=== PATIENT | female | born 1955 | race Caucasian/White ===

== ENCOUNTER 2016-03-27 20:33 | Inpatient (IN) | payer MEDICARE, MEDICAID ==
[2016-03-27] MEDS ORDERED: NORMAL SALINE 1000 ML 1,000 ML IV PRN (20:52)
--- NOTE | 2016-03-27 20:58 | ER Document Report ---
ED General - General Chief Complaint: Altered Mental Status Stated Complaint: TROUBLE BREATHING Time seen by provider: 20:52 Mode of Arrival: Medic Information source: Patient, Emergency Med Personnel TRAVEL OUTSIDE OF THE [place] IN LAST 30 DAYS: No - HPI Patient complains to provider of: altered mental status, cough, not eating or drinking today Onset: Other - 2-3 days Onset/Duration: Persistent, Worse Quality of pain: No pain Associated symptoms: Body/muscle aches, Nonproductive cough, Shortness of breath , Weakness Exacerbated by: Denies Relieved by: Denies Recently seen / treated by doctor: No Notes: Patient is a 60-year-old female brought to emergency room by EMS for altered mental status, apparently her roommate called EMS is patient hasn't been eating or drinking throughout the day today, she is weak and pale, becoming progressively less responsive, patient is a poor historian and unable to provide much detail about her current condition, she does admit to being a smoker, has had a nonproductive cough, denies any pain, no nausea, vomiting or diarrhea, she does complain of a dry mouth and admits that she has not eaten or drinking at all today - Related Data Allergies/Adverse Reactions: Penicillins Allergy (Mild, Verified 03/20/14 21:10) Home Medications: Current Home Medications Hydroxyzine HCl [Hydroxyzine HCl] 25 mg PO QID 03/28/16 [History] Past Medical History - General Information source: Patient, Emergency Med Personnel - Social History Smoking Status: Current Every Day Smoker Family History: Reviewed & Not Pertinent - Past Medical History Cardiac Medical History: Reports: Hx Congestive Heart Failure, Hx Coronary Artery Disease, Hx Hypercholesterolemia Pulmonary Medical History: Reports: Hx Bronchitis, Hx COPD Neurological Medical History: Reports: Hx Migraine GI Medical History: Reports: Hx Gastroesophageal Reflux Disease Musculoskeltal Medical History: Reports Hx Arthritis Psychiatric Medical History: Reports: Hx Anxiety, Hx Depression Past Surgical History: Reports: Hx Adenoidectomy, Hx Cholecystectomy, Hx Orthopedic Surgery - left total hip, Hx Tonsillectomy - Immunizations Hx Diphtheria, Pertussis, Tetanus Vaccination: Yes Review of Systems - Review of Systems Constitutional: See HPI EENT: No symptoms reported Cardiovascular: No symptoms reported Respiratory: See HPI Gastrointestinal: Poor appetite, Poor fluid intake Genitourinary: No symptoms reported Female Genitourinary: No symptoms reported Musculoskeletal: No symptoms reported Skin: No symptoms reported Hematologic/Lymphatic: No symptoms reported Neurological/Psychological: Confusion -: Yes All other systems reviewed and negative Physical Exam - Vital signs Vitals: Pulse Ox 100 03/27/16 20:40 - General General appearance: Alert, Lethargic In distress: Moderate - HEENT Head: Normocephalic, Atraumatic Eyes: Normal Conjunctiva: Normal Extraocular movements intact: Yes Eyelashes: Normal Pupils: PERRL Mucous membranes: Dry Pharynx: Normal Neck: Normal - Respiratory Respiratory status: Depressed respirations Chest status: Nontender Breath sounds: Decreased air movement, Nonproductive cough, Wheezing Chest palpation: Normal - Cardiovascular Rhythm: Regular Heart sounds: Normal auscultation Murmur: No - Abdominal Inspection: Normal Distension: No distension Bowel sounds: Normal Tenderness: Nontender Organomegaly: No organomegaly - Back Back: Normal, Nontender - Extremities General upper extremity: Normal inspection, Nontender, Normal color, Normal ROM , Normal temperature General lower extremity: Normal inspection, Nontender, Normal color, Normal ROM , Normal temperature. No: Abiodun's sign - Neurological Cognition: Normal, Confused Orientation: Disoriented to events Alfredo Coma Scale Eye Opening: Spontaneous Alfredo Coma Scale Verbal: Confused [place] Coma Scale Motor: Obeys Commands Alfredo Coma Scale Total: 14 Speech: Normal Motor strength normal: LUE, RUE, LLE, RLE Sensory: Normal - Psychological Associated symptoms: Normal affect, Normal mood - Skin Skin Temperature: Warm Skin Moisture: Dry Skin Color: Pale Course - Re-evaluation Re-evalutation: 03/28/16 00:05 Patient was discussed with hospitalist who agrees to admit for further evaluation and treatment, request that patient be placed on BiPAP and be given antibiotics aztreonam and azithromycin and admitted to the IMCU - Vital Signs Vital signs: Temp Pulse Resp BP Pulse Ox 20 106/53 L 92 03/28/16 02:01 03/28/16 02:01 03/28/16 02:01 - Laboratory Result Diagrams: 03/27/16 21:05 03/27/16 21:05 Laboratory results interpreted by me: 03/27/16 03/27/16 03/27/16 21:05 21:05 21:05 Hgb 7.6 L Hct 26.5 L MCV 68 L MCH 19.5 L MCHC 28.7 L RDW 23.7 H VBG pH 7.26 L VBG pCO2 67.1 H* Sodium 148.9 H Potassium 3.5 L Carbon Dioxide 32 H Creatinine 0.39 L Glucose 59 L Lactic Acid Total Protein 6.0 L Albumin 3.4 L Urine Ketones 03/27/16 03/27/16 21:05 22:09 Hgb Hct MCV MCH MCHC RDW VBG pH VBG pCO2 Sodium Potassium Carbon Dioxide Creatinine Glucose Lactic Acid < 0.5 L Total Protein Albumin Urine Ketones 20 H - Diagnostic Test Radiology reviewed: Image reviewed, Reports reviewed - EKG Interpretation by Me EKG shows normal: Sinus rhythm Rate: Normal Rhythm: NSR Voltage: Consistant with LVH Heart block present: 1st Degree When compared to previous EKG there are: No significant change - Transfer of Care Care transferred to following provider: Dr. Pan Critical Care Note - Critical Care Note Total time excluding time spent on procedures (mins): 30 Comments: Patient with acute on chronic COPD exacerbation, acute encephalopathy, requiring BiPAP placement and IMCU admission Discharge - Discharge Clinical Impression: Acute encephalopathy, Obstructive chronic bronchitis with exacerbation Acute and chronic respiratory failure ([id number]) Qualifiers: Respiratory failure complication: hypercapnia Qualified Code(s): J96.22 - Acute and chronic respiratory failure with hypercapnia Condition: Serious Disposition: ADMITTED INPATIENT Admitting Provider: Hospitalist Unit Admitted: [facility]
[2016-03-27 21:33] LABS: VENOUS BLOOD BASE EXCESS 1.9 mmol/L; VENOUS BLOOD HCO3 29.7 mmol/L (20-32); VENOUS BLOOD PH 7.26 (7.30-7.42)
[2016-03-27] MEDS ORDERED: IPRATROPIUM/ALBUTEROL 0.5-2.5 MG/3 ML AMPUL NEB ONE (21:41)
[2016-03-27 21:42] LABS: ABSOLUTE BASOPHILS # (AUTO) 0.1 10^3/uL (0.0-0.2); ABSOLUTE EOSINOPHILS # (AUTO) 0.1 10^3/uL (0.0-0.6); ABSOLUTE LYMPHOCYTES (AUTO) 1.3 10^3/uL (0.5-4.7); ABSOLUTE MONOCYTES (AUTO) 0.5 10^3/uL (0.1-1.4); ABSOLUTE NEUT (AUTO) 3.2 10^3/uL (1.7-8.2); HEMATOCRIT 26.5 % (36.0-47.0); HGB HCT DIFFERENCE -3.7; LYMPHOCYTES % (AUTO) 25.3 % (13-45); MEAN CORPUSCULAR HEMOGLOBIN 19.5 pg (27.0-33.4); MEAN CORPUSCULAR HGB CONC 28.7 g/dL (32.0-36.0); MEAN CORPUSCULAR VOLUME 68 fl (80-97); MONOCYTES % (AUTO) 9.5 % (3-13); RED BLOOD COUNT 3.91 10^6/uL (3.72-5.28); RED CELL DISTRIBUTION WIDTH 23.7 % (11.5-14.0); SEGMENTED NEUTROPHILS % (AUTO) 63.2 % (42-78)
[2016-03-27 21:48] LABS: HEMOGLOBIN 7.6 g/dL (12.0-15.5); VENOUS BLOOD PCO2 67.1 mmHg (35-63)
[2016-03-27 21:54] LABS: ALANINE AMINOTRANSFERASE 13 U/L (9-52); ALBUMIN 3.4 g/dL (3.5-5.0); ALKALINE PHOSPHATASE 58 U/L (38-126); ANION GAP 11 (5-19); ASPARTATE AMINO TRANSFERASE 17 U/L (14-36); BILIRUBIN,TOTAL 0.3 mg/dL (0.2-1.3); BLOOD UREA NITROGEN 16 mg/dL (7-20); CARBON DIOXIDE 32 mmol/L (22-30); CHLORIDE 106 mmol/L (98-107); CREATINE KINASE 53 U/L (30-135); CREATININE RESULT 0.39 mg/dL (0.52-1.25); GLUCOSE 59 mg/dL (75-110); LIPASE 32.1 U/L (23-300); POTASSIUM 3.5 mmol/L (3.6-5.0); SODIUM 148.9 mmol/L (137-145)
[2016-03-27 21:58] LABS: ALCOHOL < 10 mg/dL (NONE DETECTED)
[2016-03-27 22:05] LABS: CREATINE KINASE MB 0.95 ng/mL (<4.55)
[2016-03-27 22:06] LABS: TROPONIN I < 0.012 ng/mL
[2016-03-27 22:19] LABS: PARTIAL THROMBOPLASTIN TIME 35.1 SEC (23.5-35.8); PROTHROMBIN TIME 15.4 SEC (11.4-15.4)
[2016-03-27 22:33] LABS: APPEARANCE,URINE CLEAR; BILIRUBIN,URINE NEGATIVE (NEGATIVE); GLUCOSE, URINE NEGATIVE (NEGATIVE); KETONES,URINE 20 mg/dL (NEGATIVE); LEUKOCYTE ESTERASE,URINE NEGATIVE (NEGATIVE); NITRITE,URINE NEGATIVE (NEGATIVE); PROTEIN,URINE NEGATIVE (NEGATIVE); URINE SPECIFIC GRAVITY 1.027; UROBILINOGEN,URINE NEGATIVE mg/dL (<2.0)
[2016-03-27 22:45] LABS: URINE BARBITURATES SCREEN NEGATIVE; URINE METHADONE SCREEN NEGATIVE; URINE PHENCYCLIDINE SCREEN NEGATIVE
[2016-03-28] MEDS ORDERED: AZITHROMYCIN INJ 500 MG VIAL IV ONE (00:03)
[2016-03-28] MEDS ORDERED: AZTREONAM INJ 1 GM VIAL IV ONE (00:05)
[2016-03-28] MEDS ORDERED: ALBUTEROL SULFATE 0.083% NEB 2.5 MG/3 ML AMPUL NEB PRN (01:32)
[2016-03-28] MEDS ORDERED: DEXTROSE 50%-WATER 25 GM/50 ML DISP.SYRIN IV PRN ×2 (01:42)
[2016-03-28] MEDS ORDERED: DEXTROSE 40% GEL 15 GM TUBE PO PRN ×2 (01:42)
[2016-03-28] MEDS ORDERED: GLUCAGON,HUMAN RECOMB 1 MG INJ IM PRN (01:42)
[2016-03-28] MEDS ORDERED: POTASSI CL 20 MEQ/50 ML RIDER 50 ML IV ONE (01:43)
--- NOTE | 2016-03-28 02:12 | PDOC H&P ---
History of Present Illness Admission Date/PCP: 03/28/16 00:12 Dr. Slacedo Patient complains of: altered mental status History of Present Illness: ADRIAN BOWLES is a 60 year old female with known underlying COPD, transported to ER via EMS per above complaints from roommate. Patient has been discussed with emergency room physician who evaluated the patient. Patient is somnolent and rather confused and is able to provide no history whatsoever in terms of acute or chronic events, review of systems, personal habits, family history, etc. No friends or family are present. Old inpatient records are reviewed.. She does deny pain. Patient reportedly has not been eating or drinking throughout the day. Becoming progressively less responsive. Reportedly has had a dry cough, but no pain, nausea vomiting or diarrhea. Did admit to the emergency room physician that she has not been eating or drinking at all today. No further information available this point in time. Laboratory results are listed in coRank and are reviewed. X-ray summary results are listed below, with full report(s) reviewed. . EKG reviewed . Social history/personal habits: Per old records, lives with , who is disabled. At least a [id number] history of tobacco use. No alcohol or illicit drug use. Allergies/adverse reactions are listed in coRank and are reviewed. Home medications are reviewed by bottle review and are to be reconciled by nursing staff in [facility]. Home medications initially autopopulated into [employer] may not accurately reflect patient's true medications, dosages, and/or frequencies. REVIEW OF SYSTEMS: See history and present illness. No further information available this point in time. PHYSICAL EXAMINATION: Neither height nor weight are recorded on the chart. Temperature not recorded on the chart; skin feels normothermic. Blood pressure 103/53. Pulse 74 and regular. Respirations are 18 and unlabored. 100% saturation on 30% FiO2, BiPAP 12/6. FiO2 is decreased to 21%, with saturations in the low to mid 90 percentile range. Thin, almost emaciated chronically ill-appearing female, who appears quite a number of years older than her stated age. Somnolent. Maintaining her airway well. Does open her eyes and look at speaker when addressed in a normal volume voice. Answers are intermittently quite confused. Fairly quickly falls back asleep when not being stimulated. Female respiratory therapist Nuvia is present. Skin is warm and dry. No grossly obvious evidence of rash in areas of skin examined. No subcutaneous nodules palpated. ENT: Hearing grossly normal to normal conversation. Tongue midline on slight protrusion pink and tacky.] Exam slightly limited by BiPAP mask with attaching straps. Eyes: No scleral icterus. Pupils equal and reactive to light at 4 mm. [place] conjunctivae. No raccoon eyes. Neck is nontender to palpation. Midline trachea. No palpable thyroid nodule mass enlargement or tenderness. Lymphatic: No palpable cervical or clavicular nodes. [Neck and lymphatic Exam slightly limited by BiPAP mask with attaching straps. Psychiatric: Can't be adequately evaluated due to her current status. Lungs: Auscultation reveals equal breath sounds bilaterally. Faintly coarse breath sounds scattered throughout both lungs. No wheezing. No use of accessory respiratory muscles. Cardiovascular: Heart regular rate and rhythm, without gallop murmur or rub. No carotid or abdominal aortic bruits. No ankle or pedal edema. Faintly palpable dorsalis pedis pulses. Abdomen: soft, slightly distended nontender with positive bowel sounds. Unable to adequately evaluate abdomen for masses or organomegaly due to distention. Extremities: Feet are warm and dry. No calf tenderness to compression. No grossly obvious visual evidence of calf swelling. Gentle manipulation of lower extremities fails to reveal any obvious evidence of injury or instability to knees hips or ankles. Neurologic: Moves upper extremities grossly normally. Hand medical supply technician 5 over 5 and symmetric. Patellar reflexes absent. Absent Babinski. Light touch can't be adequately evaluated due to her current status. Dorsiflexion and plantarflexion of feet 5 / 5 and symmetric. Past Medical History Cardiac Medical History: Reports: Congestive Heart Failure, Coronary Artery Disease, Hyperlipidema Pulmonary Medical History: Reports: Bronchitis, Chronic Obstructive Pulmonary Disease (COPD) Neurological Medical History: Reports: Migraine GI Medical History: Reports: Gastroesophageal Reflux Disease Musculoskeltal Medical History: Reports: Arthritis Psychiatric Medical History: Reports: Depression Hematology: Reports: Anemia Denies: Sickle Cell Disease Past Surgical History Past Surgical History: Reports: Adenoidectomy, Cholecystectomy, Orthopedic Surgery - left total hip, Tonsillectomy Denies: Amputation Social History Information Source: Emergency Med Personnel, [facility] Records Lives with: Spouse/Significant other Smoking Status: Current Every Day Smoker Frequency of Alcohol Use: None Drugs: None Hx Prescription Drug Abuse: Yes - PER MED RECORDS - Advance Directive Resuscitation Status: Full Code Surrogate healthcare decision maker:: Uncertain at this point in time. Family History Family History: Reviewed & Not Pertinent Parental Family History Reviewed: Yes - information available only through review of old records. Children Family History Reviewed: Yes Sibling(s) Family History Reviewed.: Yes Medication/Allergy Home Medications: Albuterol Sulfate [Proair Respiclick] 2 puff IH Q6HP PRN 03/28/16 Guaifenesin/Codeine Phosphate [Cheratussin AC Syrup] 5 ml PO HSP PRN 03/28/16 Hydroxyzine HCl [Atarax 25 mg Tablet] 25 mg PO Q6 03/28/16 Montelukast Sodium [Singulair 10 mg Tablet] 10 mg PO QHS 03/28/16 Omeprazole 40 mg PO DAILY 03/28/16 Oxybutynin Chloride [Ditropan 5 mg Tablet] 5 mg PO BID 03/28/16 Tramadol HCl [Ultram 50 mg Tablet] 50 mg PO Q6HP PRN 03/28/16 Triamcinolone Acetonide [Aristocort 0.5% Cream 15 gm] 1 applic TP BID 03/28/16 Allergies/Adverse Reactions: Penicillins Allergy (Mild, Verified 03/20/14 21:10) Physical Exam Vital Signs: Temp Pulse Resp BP Pulse Ox 16 103/53 L 100 03/28/16 01:00 03/28/16 00:01 03/28/16 01:00 Results Impressions: Chest X-Ray 03/27/16 20:51 IMPRESSION: No significant interval change. No acute findings. Other findings as noted above Assessment & Plan - Diagnosis (1) Acute and chronic respiratory failure ([id number]) Qualifiers: Respiratory failure complication: hypoxia and hypercapnia Qualified Code(s): J96.21 - Acute and chronic respiratory failure with hypoxia Is this a current diagnosis for this admission?: YesPlan: Patient will be admitted under COPD exacerbation protocol. Incentive spirometry twice a day. Scheduled DuoNeb's. PRN albuterol nebs Antibiotics will consist of intravenous Zithromax along with aztreonam. Wean from BiPAP as tolerated. Serial blood gases. Patient is a full code. I have strongly encouraged patient not to get out of bed without notifying staff , , to avoid a fall with injury. Knee high SCDs for DVT prophylaxis; with anemia along with heme positive stool, will forego Lovenox or heparin at this point in time. Time spent in evaluation and management of patient: 65 minutes. (2) Acute encephalopathy Is this a current diagnosis for this admission?: YesPlan: Uncertain specific etiology at this point in time, but dehydration likely at least partially responsible. Nothing by mouth for the present time. Should resolve with time and supportive care. (3) Decreased oral intake Is this a current diagnosis for this admission?: YesPlan: Nothing by mouth for the present time. Dietary consult. (4) Heme + stool Is this a current diagnosis for this admission?: YesPlan: Consider GI consult. (5) Hypernatremia Is this a current diagnosis for this admission?: YesPlan: Serial chemistry. (6) Hypokalemia Is this a current diagnosis for this admission?: YesPlan: 1 potassium rider. Serial chemistry. Maintenance fluids with potassium. (7) Anemia Qualifiers: Anemia type: iron deficiency Iron deficiency anemia type: unspecified iron deficiency Qualified Code(s): D50.9 - Iron deficiency anemia, unspecified Is this a current diagnosis for this admission?: YesPlan: Serial H&H. Type and screen and antibody screen. Transfuse when necessary. Chronic problem for patient. Has received intravenous iron in the past. Has seen Dr. Quinonez in the past for same; will consult her. (8) History of MRSA infection of lungs Is this a current diagnosis for this admission?: YesPlan: Contact precautions. - Inpatient Certification Based on my medical assessment, after consideration of the patient's comorbidities, presenting symptoms, or acuity I expect that the services needed warrant INPATIENT care.: Yes I certify that my determination is in accordance with my understanding of Medicare's requirements for reasonable and necessary INPATIENT services [42 CFR 412.3e].: Yes Medical Necessity: Need Close Monitoring Due to Risk of Patient Decompensation, Need For IV Fluids, Need For Continuous Telemetry Monitoring, Need for Nebulizer Therapy and Monitoring of Response, Need for IV Antibiotics, Risk of Complication if Not Cared For in Hospital, Risk of Diagnosis Which Will Require Inpatient Eval/Care/Monitoring Post Hospital Care: D/C or Transfer Summary
[2016-03-28 03:18] LABS: VENOUS BLOOD BASE EXCESS 2.5 mmol/L; VENOUS BLOOD PH 7.32 (7.30-7.42)
[2016-03-28 03:29] LABS: HEMATOCRIT 22.1 % (36.0-47.0); HGB HCT DIFFERENCE -2.9; MEAN CORPUSCULAR HEMOGLOBIN 19.3 pg (27.0-33.4); MEAN CORPUSCULAR HGB CONC 28.8 g/dL (32.0-36.0); MEAN CORPUSCULAR VOLUME 67 fl (80-97); RED CELL DISTRIBUTION WIDTH 23.5 % (11.5-14.0); WHITE BLOOD COUNT 4.7 10^3/uL (4.0-10.5)
[2016-03-28 03:32] LABS: ANION GAP 11 (5-19); BLOOD UREA NITROGEN 15 mg/dL (7-20); CALCIUM 8.5 mg/dL (8.4-10.2); CARBON DIOXIDE 27 mmol/L (22-30); CHLORIDE 109 mmol/L (98-107); CREATININE RESULT 0.39 mg/dL (0.52-1.25); GLUCOSE 102 mg/dL (75-110); POTASSIUM 3.2 mmol/L (3.6-5.0); SODIUM 147.4 mmol/L (137-145)
[2016-03-28 03:37] LABS: HEMOGLOBIN 6.4 g/dL (12.0-15.5)
[2016-03-28] MEDS ORDERED: NORMAL SALINE 250 ML IV PRN ×2 (04:02)
[2016-03-28] MEDS ORDERED: POTASSI CL 20 MEQ/50 ML RIDER 50 ML IV SCH (04:15)
[2016-03-28] MEDS ORDERED: POTASSI CL 20 MEQ/50 ML RIDER 20 MEQ/50 ML RTUPB IV ONE (05:15)
[2016-03-28] MEDS: IPRATROPIUM/ALBUTEROL 0.5-2.5 MG/3 ML AMPUL NEB SCH ×3 (07:48→19:33)
[2016-03-28] MEDS ORDERED: POTASSIUM CHLORIDE 20 MEQ/50 ML RTU IV ONE (08:15)
[2016-03-28] MEDS ORDERED: IRON DEXTRAN COMPLEX 25 MG in SYRINGE, DISPOSABLE, 1 EACH IV PRN (09:01)
[2016-03-28] MEDS ORDERED: ACETAMINOPHEN 325 MG TABLET PO PRN (09:07)
[2016-03-28] MEDS ORDERED: DIPHENHYDRAMINE HCL 50 MG/ML VIAL IV PRN (09:09)
[2016-03-28] MEDS ORDERED: HEPARIN SOD (PORCINE) 5,000 UNIT/ML 1 ML SYRINGE SUBCUT SCH (10:00)
[2016-03-28] MEDS ORDERED: IRON DEXTRAN COMPLEX 25 MG in NORMAL SALINE 100 ML IV ONE ×3 (10:00→18:00)
[2016-03-28 10:07] LABS: FERRITIN 4.19 ng/mL (11.1-264.0)
[2016-03-28] MEDS ORDERED: IRON DEXTRAN COMPLEX 775 MG in NORMAL SALINE 500 ML IV ONE ×2 (10:30→17:30)
[2016-03-28] MEDS: POTASSI CL 20 MEQ/D5-1/2NS 1L 1,000 ML IV PRN ×2 (11:07→23:18)
[2016-03-28] MEDS: AZTREONAM 1 GM in DEXTROSE 5%-WATER 50 ML IV SCH ×2 (11:07→16:07)
--- NOTE | 2016-03-28 13:43 | EKG REPORT ---
SEVERITY:- ABNORMAL ECG - SINUS RHYTHM FIRST DEGREE AV BLOCK LEFT VENTRICULAR HYPERTROPHY : Confirmed by: Alice Segundo MD 28-Mar-2016 13:43:14
--- NOTE | 2016-03-28 14:27 | PDOC PROGRESS REPORT ---
Subjective Progress Note for:: 03/28/16 Subjective:: ADRIAN BOWLES is a 60 year old female with known underlying COPD, admitted via EMS per above complaints from roommate. Patient has been discussed with emergency room [physician] who evaluated the patient. Patient is somnolent and rather confused and is able to provide no history whatsoever in terms of acute or chronic events, review of systems, personal habits, family history, etc. [No friends or family are present.] [Old inpatient records are reviewed.]. She does deny pain. Patient reportedly has not been eating or drinking throughout the day. Becoming progressively less responsive. Reportedly has had a dry cough, but no pain, nausea vomiting or diarrhea. Did admit to the emergency room physician that she has not been eating or drinking at all today. She was placed on BiPAP and admitted to the hospital with good improvement in her overall status; BiPAP is now been discontinued and she remained stable from a respiratory standpoint. Nursing staff reports some dysphagia with coughing on attempts at a bedside swallow exam, speech therapies been consulted. Patient was noted to be significantly anemic and reports prior required transfusions for same. She does not recall ever receiving colonoscopy. Dr. Quinonez's been consult it and ordered further iron studies and IV iron. She was also noted to be hypokalemic with supplementation provided. Physical Exam Vital Signs: Temp Pulse Resp BP Pulse Ox 98.0 F 65 14 143/71 H 99 03/28/16 13:15 03/28/16 13:38 03/28/16 13:38 03/28/16 13:15 03/28/16 13:38 Intake & Output 03/27/16 03/28/16 03/29/16 06:59 06:59 06:59 Intake Total 300 Balance 300 Weight 47.5 kg General appearance: PRESENT: no acute distress. ABSENT: well-nourished - Moderate protein calorie malnutrition evidenced by muscle wasting diffusely and thin body habitus Head exam: PRESENT: atraumatic, normocephalic Eye exam: PRESENT: EOMI. ABSENT: conjunctival injection, nystagmus Mouth exam: PRESENT: dry mucosa, neck supple Throat exam: PRESENT: tonsillar erythema, tonsillar exudate Neck exam: ABSENT: carotid bruit, JVD Respiratory exam: PRESENT: clear to auscultation rohan - Coarse bilaterally but no wheezes rales or rhonchi. ABSENT: accessory muscle use, unlabored Cardiovascular exam: PRESENT: RRR. ABSENT: systolic murmur Pulses: PRESENT: normal carotid pulses, normal radial pulses GI/Abdominal exam: PRESENT: normal bowel sounds, soft. ABSENT: tenderness Extremities exam: ABSENT: calf tenderness - No palpable cords, pedal edema Musculoskeletal exam: ABSENT: full ROM - Generalized weakness at 3-4/ 5 Neurological exam: PRESENT: alert, awake, oriented to person, oriented to place , oriented to situation. ABSENT: oriented to time Psychiatric exam: PRESENT: flat affect, normal mood Focused psych exam: ABSENT: pressured speech, psychomotor agitation Skin exam: PRESENT: dry. ABSENT: jaundice, rash Results Laboratory Results: 03/28/16 02:59 03/28/16 02:59 03/28/16 03/28/16 03/28/16 02:59 02:59 02:59 WBC 4.7 RBC 3.30 L Hgb 6.4 L Hct 22.1 L MCV 67 L MCH 19.3 L MCHC 28.8 L RDW 23.5 H Plt Count 188 Retic Count (auto) Absolute Retic VBG pH VBG pCO2 VBG HCO3 VBG Base Excess Sodium 147.4 H Potassium 3.2 L Chloride 109 H Carbon Dioxide 27 Anion Gap 11 BUN 15 Creatinine 0.39 L Est GFR ( Amer) > 60 Est GFR (Non-Af Amer) > 60 Glucose 102 Calcium 8.5 Magnesium Iron TIBC % Saturation Ferritin Vitamin B12 Folate TSH Blood Type A POSITIVE Antibody Screen NEGATIVE 03/28/16 03/28/16 03/28/16 02:59 02:59 02:59 WBC RBC Hgb Hct MCV MCH MCHC RDW Plt Count Retic Count (auto) 2.07 Absolute Retic 0.068 VBG pH VBG pCO2 VBG HCO3 VBG Base Excess Sodium Potassium Chloride Carbon Dioxide Anion Gap BUN Creatinine Est GFR ( Amer) Est GFR (Non-Af Amer) Glucose Calcium Magnesium 1.7 Iron TIBC % Saturation Ferritin Vitamin B12 Folate TSH 1.62 Blood Type Antibody Screen 03/28/16 03/28/16 02:59 03:05 WBC RBC Hgb Hct MCV MCH MCHC RDW Plt Count Retic Count (auto) Absolute Retic VBG pH 7.32 VBG pCO2 58.0 VBG HCO3 29.0 VBG Base Excess 2.5 Sodium Potassium Chloride Carbon Dioxide Anion Gap BUN Creatinine Est GFR ( Amer) Est GFR (Non-Af Amer) Glucose Calcium Magnesium Iron 17 L TIBC 365 % Saturation 5 Ferritin 4.19 L Vitamin B12 332.0 Folate 18.30 TSH Blood Type Antibody Screen Impressions: Chest X-Ray 03/27/16 20:51 IMPRESSION: No significant interval change. No acute findings. Other findings as noted above Assessment & Plan - Diagnosis (1) Acute and chronic respiratory failure ([id number]) Qualifiers: Respiratory failure complication: hypoxia and hypercapnia Qualified Code(s): J96.21 - Acute and chronic respiratory failure with hypoxia; J96.22 - Acute and chronic respiratory failure with hypercapnia Is this a current diagnosis for this admission?: YesPlan: Continue broad-spectrum antibiotics and systemic IV steroids and continue aggressive pulmonary toilet. Intermittent BiPAP as needed for respiratory distress, increased work of breathing, worsening encephalopathy. (2) Acute encephalopathy Is this a current diagnosis for this admission?: YesPlan: Unclear etiology, likely multifactorial with a component of hypercapnia\CO2 narcosis and dehydration. Add B12 level and ammonia levels to further evaluate for metabolic causes. (3) Decreased oral intake Is this a current diagnosis for this admission?: YesPlan: Dictated by dysphagia of Unclear etiology, probably related to the acute encephalopathy. Check pre-albumin. Dietary consult. Speech therapy consult and advance diet per their recommendations. (4) Heme + stool Is this a current diagnosis for this admission?: YesPlan: Transfuse 2 units packed red blood cells this morning. Trend H&H. Continue PPI therapy. No GI coverage today (5) Hypernatremia Is this a current diagnosis for this admission?: YesPlan: Received IV fluids on admission. We'll repeat in the morning. (6) Hypokalemia Is this a current diagnosis for this admission?: YesPlan: Replacement provided. We'll repeat in the morning and replenish as needed (7) Obstructive chronic bronchitis with exacerbation Plan: As above (8) Anemia Qualifiers: Anemia type: iron deficiency Iron deficiency anemia type: unspecified iron deficiency Qualified Code(s): D50.9 - Iron deficiency anemia, unspecified Is this a current diagnosis for this admission?: YesPlan: Hematology consult appreciated. IV iron sucrose ordered. Continue to trend H& H. Will need GI consult when available. - Time Time Spent with patient: 25-34 minutes Within: within 72 hours - Will likely need another 2-3 days in hospital. Unclear whether she will qualify and/or need rehabilitation at discharge, too early to say.
[2016-03-28] MEDS ORDERED: PANTOPRAZOLE SODIUM 40 MG VIAL IV SCH (14:30)
[2016-03-28] MEDS ORDERED: METHYLPREDNISOLONE INJ 40 MG/1 ML SDV IV ONE (15:00)
[2016-03-28] MEDS ORDERED: PANTOPRAZOLE SODIUM 40 MG VIAL IV ONE (15:00)
[2016-03-28 16:02] LABS: HEMATOCRIT 30.4 % (36.0-47.0); HGB HCT DIFFERENCE -2.2; MEAN CORPUSCULAR HEMOGLOBIN 22.3 pg (27.0-33.4); RED BLOOD COUNT 4.22 10^6/uL (3.72-5.28); RED CELL DISTRIBUTION WIDTH 25.2 % (11.5-14.0); WHITE BLOOD COUNT 6.1 10^3/uL (4.0-10.5)
[2016-03-28] MEDS: ACETAMINOPHEN 650 MG SUPP.RECT PR PRN (16:09)
[2016-03-28 16:10] LABS: ANION GAP 9 (5-19); BLOOD UREA NITROGEN 11 mg/dL (7-20); CALCIUM 8.8 mg/dL (8.4-10.2); CARBON DIOXIDE 28 mmol/L (22-30); CHLORIDE 109 mmol/L (98-107); CREATININE RESULT 0.32 mg/dL (0.52-1.25); GLUCOSE 94 mg/dL (75-110); SODIUM 146.1 mmol/L (137-145)
[2016-03-28 16:22] LABS: HEMOGLOBIN 9.4 g/dL (12.0-15.5); MEAN CORPUSCULAR VOLUME 72 fl (80-97)
[2016-03-28 16:28] LABS: BASOPHILS % (MANUAL) 0 % (0-2); EOSINOPHILS % (MANUAL) 2 % (0-6); LYMPHOCYTES % (MANUAL) 15 % (13-45); TOTAL CELLS COUNTED 100
[2016-03-28 16:35] LABS: TOXIC GRANULATION SLIGHT
[2016-03-28 16:36] LABS: ACANTHOCYTES SLIGHT; ANISOCYTOSIS 2+; HYPOCHROMASIA SLIGHT; MICROCYTOSIS 1+; OVALOCYTES SLIGHT; TARGET CELLS SLIGHT
[2016-03-28] MEDS ORDERED: INFLUENZA ADLT QUAD (36MOS+) 2016-17 VAC 0.5 ML SYR IM PRN (17:56)
--- NOTE | 2016-03-28 18:13 | PDOC CONSULTATION ---
Consultation Consult Date: 03/28/16 Consult reason:: Anemia History of Present Illness Admission Date/PCP: 03/28/16 01:32 History of Present Illness: ADRIAN BOWLES is a 60 year old female with known underlying COPD, CAD migraine headaches and seizure disorder, narcotic dependence JU who was admitted via EMS for progressive shortness of breath, and change in mental status.. Patient reportedly has not been eating or drinking throughout the day prior to admit. Becoming progressively less responsive. Reportedly has had a dry cough , but no pain, nausea vomiting or diarrhea. Did admit to the emergency room physician that she has not been eating or drinking at all lately and was noted to have a profound microcytic anemia. She was treated greater than a year ago for iron and B12 deficiency , as well as Vitamin D but never followed up. Past Medical History Cardiac Medical History: Reports: Congestive Heart Failure, Coronary Artery Disease, Hyperlipidema Pulmonary Medical History: Reports: Bronchitis, Chronic Obstructive Pulmonary Disease (COPD) Neurological Medical History: Reports: Migraine GI Medical History: Reports: Gastroesophageal Reflux Disease Musculoskeltal Medical History: Reports: Arthritis Psychiatric Medical History: Reports: Depression Hematology: Reports: Anemia Denies: Sickle Cell Disease Past Surgical History Past Surgical History: Reports: Adenoidectomy, Cholecystectomy, Orthopedic Surgery - left total hip, Tonsillectomy Denies: Amputation Social History Smoking Status: Current Every Day Smoker Hx Prescription Drug Abuse: Yes - PER MED RECORDS - Advance Directive Resuscitation Status: Full Code Family History Family History: Reviewed & Not Pertinent Parental Family History Reviewed: Yes Children Family History Reviewed: Yes Sibling(s) Family History Reviewed.: Yes Medication/Allergy Home Medications: Albuterol Sulfate [Proair Respiclick] 2 puff IH Q6HP PRN 03/28/16 Guaifenesin/Codeine Phosphate [Cheratussin AC Syrup] 5 ml PO HSP PRN 03/28/16 Hydroxyzine HCl [Atarax 25 mg Tablet] 25 mg PO Q6 03/28/16 Montelukast Sodium [Singulair 10 mg Tablet] 10 mg PO QHS 03/28/16 Omeprazole 40 mg PO DAILY 03/28/16 Oxybutynin Chloride [Ditropan 5 mg Tablet] 5 mg PO BID 03/28/16 Tramadol HCl [Ultram 50 mg Tablet] 50 mg PO Q6HP PRN 03/28/16 Triamcinolone Acetonide [Aristocort 0.5% Cream 15 gm] 1 applic TP BID 03/28/16 Allergies/Adverse Reactions: Penicillins Allergy (Mild, Verified 03/20/14 21:10) Review of Systems Constitutional: PRESENT: as per HPI Respiratory: PRESENT: cough Neurological: PRESENT: as per HPI Physical Exam Vital Signs: Temp Pulse Resp BP Pulse Ox 98.0 F 69 18 131/58 H 100 03/28/16 15:55 03/28/16 15:55 03/28/16 15:55 03/28/16 15:55 03/28/16 15:55 Intake & Output 03/27/16 03/28/16 03/29/16 06:59 06:59 06:59 Intake Total 810 Balance 810 Weight 47.5 kg General appearance: PRESENT: other - Confused but responds to simple questions Head exam: PRESENT: normocephalic Eye exam: PRESENT: conjunctiva pale Respiratory exam: PRESENT: prolonged expiratory phas Cardiovascular exam: PRESENT: RRR GI/Abdominal exam: PRESENT: normal bowel sounds, soft Rectal exam: PRESENT: heme (+) stool Neurological exam: PRESENT: awake, CN II-XII grossly intact Results Laboratory Results: 03/28/16 15:47 03/28/16 15:47 03/28/16 03/28/16 03/28/16 02:59 02:59 02:59 WBC 4.7 RBC 3.30 L Hgb 6.4 L Hct 22.1 L MCV 67 L MCH 19.3 L MCHC 28.8 L RDW 23.5 H Plt Count 188 Seg Neutrophils % Lymphocytes % Monocytes % Eosinophils % Basophils % Absolute Neutrophils Absolute Lymphocytes Absolute Monocytes Absolute Eosinophils Absolute Basophils Retic Count (auto) Absolute Retic VBG pH VBG pCO2 VBG HCO3 VBG Base Excess Sodium 147.4 H Potassium 3.2 L Chloride 109 H Carbon Dioxide 27 Anion Gap 11 BUN 15 Creatinine 0.39 L Est GFR ( Amer) > 60 Est GFR (Non-Af Amer) > 60 Glucose 102 Calcium 8.5 Magnesium Iron TIBC % Saturation Ferritin Vitamin B12 Folate TSH Blood Type A POSITIVE Antibody Screen NEGATIVE 03/28/16 03/28/16 03/28/16 02:59 02:59 02:59 WBC RBC Hgb Hct MCV MCH MCHC RDW Plt Count Seg Neutrophils % Lymphocytes % Monocytes % Eosinophils % Basophils % Absolute Neutrophils Absolute Lymphocytes Absolute Monocytes Absolute Eosinophils Absolute Basophils Retic Count (auto) 2.07 Absolute Retic 0.068 VBG pH VBG pCO2 VBG HCO3 VBG Base Excess Sodium Potassium Chloride Carbon Dioxide Anion Gap BUN Creatinine Est GFR ( Amer) Est GFR (Non-Af Amer) Glucose Calcium Magnesium 1.7 Iron TIBC % Saturation Ferritin Vitamin B12 Folate TSH 1.62 Blood Type Antibody Screen 03/28/16 03/28/16 03/28/16 02:59 03:05 15:47 WBC 6.1 RBC 4.22 Hgb 9.4 L D Hct 30.4 L MCV 72 L D MCH 22.3 L MCHC 31.0 L RDW 25.2 H Plt Count 176 Seg Neutrophils % Not Reportable Lymphocytes % Not Reportable Monocytes % Not Reportable Eosinophils % Not Reportable Basophils % Not Reportable Absolute Neutrophils Not Reportable Absolute Lymphocytes Not Reportable Absolute Monocytes Not Reportable Absolute Eosinophils Not Reportable Absolute Basophils Not Reportable Retic Count (auto) Absolute Retic VBG pH 7.32 VBG pCO2 58.0 VBG HCO3 29.0 VBG Base Excess 2.5 Sodium Potassium Chloride Carbon Dioxide Anion Gap BUN Creatinine Est GFR ( Amer) Est GFR (Non-Af Amer) Glucose Calcium Magnesium Iron 17 L TIBC 365 % Saturation 5 Ferritin 4.19 L Vitamin B12 332.0 Folate 18.30 TSH Blood Type Antibody Screen 03/28/16 15:47 WBC RBC Hgb Hct MCV MCH MCHC RDW Plt Count Seg Neutrophils % Lymphocytes % Monocytes % Eosinophils % Basophils % Absolute Neutrophils Absolute Lymphocytes Absolute Monocytes Absolute Eosinophils Absolute Basophils Retic Count (auto) Absolute Retic VBG pH VBG pCO2 VBG HCO3 VBG Base Excess Sodium 146.1 H Potassium 4.0 Chloride 109 H Carbon Dioxide 28 Anion Gap 9 BUN 11 Creatinine 0.32 L Est GFR ( Amer) > 60 Est GFR (Non-Af Amer) > 60 Glucose 94 Calcium 8.8 Magnesium Iron TIBC % Saturation Ferritin Vitamin B12 Folate TSH Blood Type Antibody Screen Impressions: Chest X-Ray 03/27/16 20:51 IMPRESSION: No significant interval change. No acute findings. Other findings as noted above Assessment & Plan - Diagnosis (1) Acute and chronic respiratory failure ([id number]) Qualifiers: Respiratory failure complication: hypoxia and hypercapnia Qualified Code(s): J96.21 - Acute and chronic respiratory failure with hypoxia Is this a current diagnosis for this admission?: YesPlan: Pulmonary toilet (2) Acute encephalopathy Is this a current diagnosis for this admission?: YesPlan: h/o Seizure disorder evaluate for postictal (3) Heme + stool Is this a current diagnosis for this admission?: YesPlan: Would have GI see her (4) Anemia Qualifiers: Anemia type: iron deficiency Iron deficiency anemia type: unspecified iron deficiency Qualified Code(s): D50.9 - Iron deficiency anemia, unspecified Is this a current diagnosis for this admission?: YesPlan: Treat with IV iron after PRBC's, and resume B12 - Time Time Spent: 50 to 70 Minutes Critical Time spent with patient: 25-34 minutes Medications reviewed and adjusted accordingly: Yes - Inpatient Certification Based on my medical assessment, after consideration of the patient's comorbidities, presenting symptoms, or acuity I expect that the services needed warrant INPATIENT care.: Yes I certify that my determination is in accordance with my understanding of Medicare's requirements for reasonable and necessary INPATIENT services [42 CFR 412.3e].: Yes Medical Necessity: Need Close Monitoring Due to Risk of Patient Decompensation
--- NOTE | 2016-03-28 19:33 | Progress Note ---
Provider Note Provider Note: 03/28/2016: Repeat hemoglobin comes back as 6.4. Decision is made to proceed with transfusion of packed cells. Patient remained somnolent and confused, and could not give adequate permission to proceed with blood transfusion. Reviewing her chart under summary, demographics, I called twice to her child Temitope deras; no answer at that number. recording twice that voicemail had not been set up yet. I then called twice to another child Brandon Cohn. Generic voicemail left twice at 3:50 AM to call me as soon as possible in the hospital. I did not hear back. I then called the patient's own phone number, twice, but received a recorded message that the number had been disconnected. I discussed the patient with Dr. Giles, the emergency room physician who had initially evaluated the patient. She likewise felt transfusion of blood products was necessary. She cosigned the transfusion permit, as I did.
[2016-03-28] MEDS: AZITHROMYCIN 500 MG in DEXTROSE 5%-WATER 250 ML IV SCH (23:09)
[2016-03-29] MEDS: AZTREONAM 1 GM in DEXTROSE 5%-WATER 50 ML IV SCH ×3 (02:51→17:34)
[2016-03-29] MEDS: PANTOPRAZOLE SODIUM 40 MG VIAL IV SCH ×2 (05:38→17:34)
[2016-03-29] MEDS: METHYLPREDNISOLONE INJ 40 MG/1 ML SDV IV SCH ×2 (05:38→17:35)
[2016-03-29 07:01] LABS: HEMATOCRIT 30.8 % (36.0-47.0); HEMOGLOBIN 9.9 g/dL (12.0-15.5); HGB HCT DIFFERENCE -1.1; MEAN CORPUSCULAR HEMOGLOBIN 22.4 pg (27.0-33.4); MEAN CORPUSCULAR HGB CONC 32.1 g/dL (32.0-36.0); MEAN CORPUSCULAR VOLUME 70 fl (80-97); RED CELL DISTRIBUTION WIDTH 26.1 % (11.5-14.0); WHITE BLOOD COUNT 7.2 10^3/uL (4.0-10.5)
[2016-03-29 07:04] LABS: ALANINE AMINOTRANSFERASE < 6 U/L (9-52); ALBUMIN 3.2 g/dL (3.5-5.0); ALKALINE PHOSPHATASE 61 U/L (38-126); ANION GAP 7 (5-19); ASPARTATE AMINO TRANSFERASE 12 U/L (14-36); BILIRUBIN,TOTAL 0.7 mg/dL (0.2-1.3); BLOOD UREA NITROGEN 6 mg/dL (7-20); CALCIUM 9.5 mg/dL (8.4-10.2); CARBON DIOXIDE 31 mmol/L (22-30); CHLORIDE 104 mmol/L (98-107); CREATININE RESULT 0.35 mg/dL (0.52-1.25); GLUCOSE 115 mg/dL (75-110); MAGNESIUM 1.4 mg/dL (1.6-2.3); PHOSPHORUS 2.4 mg/dL (2.5-4.5); POTASSIUM 3.9 mmol/L (3.6-5.0); SODIUM 141.6 mmol/L (137-145); TOTAL PROTEIN 5.7 g/dL (6.3-8.2)
[2016-03-29 07:12] LABS: PREALBUMIN 18.6 mg/dL (17.6-36.0)
[2016-03-29] MEDS: IPRATROPIUM/ALBUTEROL 0.5-2.5 MG/3 ML AMPUL NEB SCH ×3 (08:12→20:03)
--- NOTE | 2016-03-29 13:42 | PDOC PROGRESS REPORT ---
Subjective Progress Note for:: 03/29/16 Subjective:: ADRIAN BOWLES is a 60 year old female with known underlying COPD, admitted via EMS per above complaints from roommate. Patient was somnolent and rather confused and unable to provide history whatsoever in terms of acute or chronic events, review of systems, personal habits, family history, etc. [No friends or family are present.] [Old inpatient records are reviewed.]. She does deny pain. Patient reportedly has not been eating or drinking throughout the day. Becoming progressively less responsive. Reportedly has had a dry cough, but no pain, nausea vomiting or diarrhea. Did admit to the emergency room physician that she has not been eating or drinking at all today. She was placed on BiPAP and admitted to the hospital with good improvement in her overall status, patient wears CPAP at home but does not require home O2.. BiPAP is now been discontinued and she remained stable from a respiratory standpoint. Nursing staff reports some dysphagia with coughing on attempts at a bedside swallow exam, speech therapies been consulted. Patient was noted to be significantly anemic and reports prior required transfusions for same. She does not recall ever receiving colonoscopy. Dr. Quinonez's been consult it and ordered further iron studies and IV iron. She was also noted to be hypokalemic with supplementation provided. Patient remains largely somnolent, nursing reports she did get up with physical therapy at one point but is now very sleepy and speech therapy reports unable to perform their tasks as a result. Nursing also reports choking with sips of water and ice chips. Patient reports to me that she's had difficulty swallowing for several months now. Reports food sticking high up in her throat with occasional regurgitation or coughing of undigested food. Review of the old record indicates she has had a barium swallow in March 2015 noted to have gastroesophageal reflux to the mid one third of the esophagus with distal narrowing proximal to a large hiatal hernia. She does not recall having undergone endoscopy previously. She denies weight loss or night sweats. Nursing also notes intermittent bradycardia particularly while asleep she will drop her heart rate into the 40s. When awakened her heart rate usually recovers in the mid 50s to 60s the patient is asymptomatic. Physical Exam Vital Signs: Temp Pulse Resp BP Pulse Ox 98.4 F 58 L 16 150/62 H 97 03/29/16 11:39 03/29/16 11:39 03/29/16 11:39 03/29/16 11:39 03/29/16 11:39 Intake & Output 03/28/16 03/29/16 03/30/16 06:59 06:59 06:59 Intake Total 1760 Balance 1760 Weight 47.5 kg 54.6 kg Results Laboratory Results: 03/29/16 06:28 03/29/16 06:28 03/28/16 03/28/16 03/28/16 02:59 02:59 15:47 WBC 6.1 RBC 4.22 Hgb 9.4 L D Hct 30.4 L MCV 72 L D MCH 22.3 L MCHC 31.0 L RDW 25.2 H Plt Count 176 Seg Neutrophils % Not Reportable Lymphocytes % Not Reportable Monocytes % Not Reportable Eosinophils % Not Reportable Basophils % Not Reportable Absolute Neutrophils Not Reportable Absolute Lymphocytes Not Reportable Absolute Monocytes Not Reportable Absolute Eosinophils Not Reportable Absolute Basophils Not Reportable Sodium Potassium Chloride Carbon Dioxide Anion Gap BUN Creatinine Est GFR ( Amer) Est GFR (Non-Af Amer) Glucose Calcium Phosphorus Magnesium Transferrin 277 Total Bilirubin AST ALT Alkaline Phosphatase Ammonia Total Protein Albumin Prealbumin Blood Type A POSITIVE Antibody Screen NEGATIVE 03/28/16 03/29/16 03/29/16 15:47 06:28 06:28 WBC 7.2 RBC 4.40 Hgb 9.9 L Hct 30.8 L MCV 70 L MCH 22.4 L MCHC 32.1 RDW 26.1 H Plt Count 193 Seg Neutrophils % Lymphocytes % Monocytes % Eosinophils % Basophils % Absolute Neutrophils Absolute Lymphocytes Absolute Monocytes Absolute Eosinophils Absolute Basophils Sodium 146.1 H 141.6 Potassium 4.0 3.9 Chloride 109 H 104 Carbon Dioxide 28 31 H Anion Gap 9 7 BUN 11 6 L Creatinine 0.32 L 0.35 L Est GFR ( Amer) > 60 > 60 Est GFR (Non-Af Amer) > 60 > 60 Glucose 94 115 H Calcium 8.8 9.5 Phosphorus 2.4 L Magnesium 1.4 L Transferrin Total Bilirubin 0.7 AST 12 L ALT < 6 L Alkaline Phosphatase 61 Ammonia Total Protein 5.7 L Albumin 3.2 L Prealbumin 18.6 Blood Type Antibody Screen 03/29/16 06:28 WBC RBC Hgb Hct MCV MCH MCHC RDW Plt Count Seg Neutrophils % Lymphocytes % Monocytes % Eosinophils % Basophils % Absolute Neutrophils Absolute Lymphocytes Absolute Monocytes Absolute Eosinophils Absolute Basophils Sodium Potassium Chloride Carbon Dioxide Anion Gap BUN Creatinine Est GFR ( Amer) Est GFR (Non-Af Amer) Glucose Calcium Phosphorus Magnesium Transferrin Total Bilirubin AST ALT Alkaline Phosphatase Ammonia < 8.7 L Total Protein Albumin Prealbumin Blood Type Antibody Screen 03/28/16 05:40 Nasophary (Mrsa Only) MRSA Culture - Final MRSA RECOVERED Impressions: Chest X-Ray 03/27/16 20:51 IMPRESSION: No significant interval change. No acute findings. Other findings as noted above Assessment & Plan - Diagnosis (1) Acute and chronic respiratory failure ([id number]) Qualifiers: Respiratory failure complication: hypoxia and hypercapnia Qualified Code(s): J96.21 - Acute and chronic respiratory failure with hypoxia Is this a current diagnosis for this admission?: YesPlan: Improved and nearly back to baseline. Continue broad-spectrum antibiotics and systemic IV steroids and continue aggressive pulmonary toilet. Intermittent BiPAP as needed for respiratory distress, increased work of breathing, worsening encephalopathy. (2) Acute encephalopathy Is this a current diagnosis for this admission?: YesPlan: Unclear etiology, likely multifactorial with a component of hypercapnia\CO2 narcosis and dehydration. B12 low level of normal and ammonia levels normal. Check MRI of the brain and echocardiogram to evaluate for stroke and its possible source. (3) Decreased oral intake Is this a current diagnosis for this admission?: YesPlan: Dictated by dysphagia of Unclear etiology. Keep nothing by mouth. probably related to the acute encephalopathy but possibly related to esophageal stricture and/or severe erosive esophagitis from ongoing gastroesophageal reflux disease. pre-albumin low normal. Dietary consulted but awaiting completion of Speech therapy consult to advance diet per their recommendations. Once more awake and cooperative would likely benefit from modified barium swallow or simple upper GI series to look for stricture, ulcerations, mass effect, etc. (4) Heme + stool Is this a current diagnosis for this admission?: YesPlan: Transfuse 2 units packed red blood cells. Trend H&H. Continue PPI therapy. Consult GI but given her respiratory and mental status unlikely to perform invasive procedure until improved. (5) Hypernatremia Is this a current diagnosis for this admission?: YesPlan: Received IV fluids on admission. Resolved (6) Hypokalemia Is this a current diagnosis for this admission?: YesPlan: Replacement provided. Resolved (7) Obstructive chronic bronchitis with exacerbation Plan: Probable bacterial bronchitis at risk for gram-negative organisms and pneumonia due to fixed lung disease. Continue broad-spectrum antibiotics. (8) Anemia Qualifiers: Anemia type: iron deficiency Iron deficiency anemia type: unspecified iron deficiency Is this a current diagnosis for this admission?: YesPlan: Hematology consult appreciated. IV iron sucrose completed. Continue to trend H &H. (9) Bacteremia Is this a current diagnosis for this admission?: YesPlan: Possible contaminant. Will repeat blood cultures. If persistently positive will require FAIZAN. (10) Hypomagnesemia Is this a current diagnosis for this admission?: YesPlan: Replace and monitor. Unclear if continued into her condition. Likely sequela of poor oral intake. - Time Time Spent with patient: 35 or more minutes
[2016-03-29] MEDS: MAGNESIUM SULFATE/D5W 100 ML IV SCH ×2 (14:35→15:35)
--- NOTE | 2016-03-29 19:19 | XCELERA REPORT ---
[address] [address] Transthoracic Echocardiogram Report Name: ADRIAN BOWLES Age: 60 yrs Gender: Female : 1955 Patient Status: Inpatient Patient Location: [id number]\S\335\S\A Study Date: 03/29/2016 02:26 PM Height: 63 in Weight: 120 lb BSA: 1.6 m2 Procedure: A complete two-dimensional transthoracic echocardiogram was performed (2D, M-mode, spectral and color flow Doppler). The study was technically adequate with some images being suboptimal in quality. Reason For Study: bradycardia Ordering Physician: KEVIN DANIELSON Performed By: Alena Lopez Interpretation Summary Left ventricular systolic function is low normal. Doppler measurements suggest impaired left ventricular relaxation, which is associated with grade I/IV or mild diastolic dysfunction There is borderline concentric left ventricular hypertrophy. The left ventricle is grossly normal size. Wall motion cannot be accurately commented on, but no definite regional wall motion abnormalities noted. The right ventricular systolic function is normal. The left atrium is mildly dilated. The right atrium is normal in size There is a trace amount of mitral regurgitation There is no mitral valve stenosis. There is no aortic valve stenosis No aortic regurgitation is present. There is a trace or physiologic amount of tricuspid regurgitation Tricuspid regurgitation jet envelope not well defined to measure RV systolic pressure accurately. There is no tricuspid stenosis. The aortic root is not well visualized but is probably normal size. The inferior vena cava was not well visualized Minimal pericardial effusion. MMode/2D Measurements \T\ Calculations RVDd: 2.0 cm LVIDd: 5.5 cm FS: 33.2 % Ao root diam: 2.8 cm IVSd: 1.0 cm LVIDs: 3.7 cm EDV(Teich): 146.6 ml LVPWd: 0.96 cm ESV(Teich): 56.9 ml Ao root area: 6.1 cm2 EF(Teich): 61.2 % LA dimension: 3.9 cm Doppler Measurements \T\ Calculations MV E max laure: MV P1/2t max laure: Ao V2 max: LV V1 max P.2 cm/sec 96.7 cm/sec 143.5 cm/sec 6.4 mmHg MV A max laure: MV P1/2t: 63.9 msec Ao max PG: LV V1 max: 89.8 cm/sec 8.2 mmHg 126.4 cm/sec MV E/A: 1.1 MVA(P1/2t): 3.4 cm2 MV dec slope: 443.5 cm/sec2 MV dec time: 0.22 sec PA V2 max: TR max laure: 99.7 cm/sec 220.4 cm/sec PA max PG: TR max P.4 mmHg 4.0 mmHg Left Ventricle The left ventricle is grossly normal size. There is borderline concentric left ventricular hypertrophy. Left ventricular systolic function is low normal. Doppler measurements suggest impaired left ventricular relaxation, which is associated with grade I/IV or mild diastolic dysfunction. Wall motion cannot be accurately commented on, but no definite regional wall motion abnormalities noted. Right Ventricle The right ventricle is grossly normal size. There is normal right ventricular wall thickness. The right ventricular systolic function is normal. Atria The right atrium is normal in size. The left atrium is mildly dilated. Interarterial septum not well visualized and not well dopplered. Cannot comment on ASD/PFO presence. Mitral Valve The mitral valve is grossly normal. There is no mitral valve stenosis. There is a trace amount of mitral regurgitation. Aortic Valve The aortic valve is grossly normal. There is no aortic valve stenosis. No aortic regurgitation is present. Tricuspid Valve The tricuspid valve is not well visualized, but is grossly normal. There is no tricuspid stenosis. There is a trace or physiologic amount of tricuspid regurgitation. Tricuspid regurgitation jet envelope not well defined to measure RV systolic pressure accurately. Pulmonic Valve The pulmonic valve is not well visualized. Great Vessels The aortic root is not well visualized but is probably normal size. The inferior vena cava was not well visualized. Effusions Minimal pericardial effusion. : KEVIN DANIELSON > Lissy Willingham
--- NOTE | 2016-03-29 20:03 | CONSULTATION REPORT E ---
Consultation Report NAME: ADRIAN BOWLES : 1955 AGE: 60Y DATE: 03/29/2016 335 A TO: JERILYN FRANCIS M.D. FROM: BENTLEY ELDER M.D. Requesting Physician HISTORY OF PRESENT ILLNESS: This 60-year-old patient was admitted on 03/28/2016 with change in mental status and COPD. Consultation was requested for anemia and heme-positive stool. On admission, her hemoglobin was 7.6, and about 6 hours later, it was 6.4. She has received 2 units of blood, and her hemoglobin is now 9.9. She has a chronic history of anemia, and review of her old blood work showed a hemoglobin of 6.9 back in 08/2014, 8.7 in 12/2011, and multiple other times in 2014. Her last normal hemoglobin was in 07/2011 when it was 14.3. She has received 2 other transfusions back in 08/2012 and 08/2014. According to the patient, she had endoscopies in the past, but I do not see evidence of that at [facility]. She takes iron tablets off and on. She denies abdominal pain, rectal bleeding, or melena. Her weight has been stable. Her ferritin was low at 4 on admission, 8 in 2014, and 5.5 in 2012. Patient also admits to taking BC aspirin 5-6 times a day and has done this for many years. She does take a PPI though she does not remember the name. PAST MEDICAL HISTORY: 1. COPD. 2. Coronary artery disease. 3. Reflux disease. 4. Depression. 5. CHF. 6. Iron-deficiency anemia. PAST SURGICAL HISTORY: 1. Cholecystectomy. 2. Hip replacement. 3. Tonsillectomy. 4. Possible endoscopies in the past. ALLERGIES: PENICILLIN. SOCIAL HISTORY: She smokes but does not abuse alcohol. REVIEW OF SYSTEMS: Other than the above, it is non-contributory. PHYSICAL EXAMINATION: GENERAL: Physical examination shows a lady in no distress. She is alert and oriented x3 and was able to give a good history. VITAL SIGNS: She has a heart rate of 59. Blood pressure 131/62. HEENT: She has some pallor but no jaundice. Oropharynx normal. NECK: No bruit. No JVD. CHEST: No deformity. LUNGS: Reduced breath sounds bilaterally. CARDIOVASCULAR: S1, S2 normal. ABDOMEN: Soft, nontender. Liver and spleen not palpable. Bowel sounds normal. NEUROLOGIC: Grossly nonfocal. LABORATORY DATA: Other laboratory tests showed a normal chem-7, normal LFTs. Ferritin of 4.19. She had a barium swallow back in 03/2015 done for dysphagia. This showed mild narrowing in the distal esophagus just above the hiatal hernia. There was significant reflux to the mid part of the esophagus. ASSESSMENT AND PLAN: 1. Iron-deficiency anemia. The patient has had this at least for the last 3-4 years and has received multiple transfusions. She does not take iron supplements consistently. She will require an esophagogastroduodenoscopy, colonoscopy, and capsule endoscopy of her small bowel. This will be performed as an outpatient which will allow her to recover from her pulmonary disease. She will need to be discharged on ferrous sulfate 3 times a day with stool softeners. 2. High-risk medication. I encouraged her to stop the daily use of aspirin and to use Tylenol p.r.n. I will follow her in the office. DICTATING PHYSICIAN: JERILYN FRANCIS M.D. [id number] PHY#: [id number] ID: [id number] JOB#: [id number] ACCT: [id number] cc:Rochelle KAY M.D. >
[2016-03-29] MEDS: AZITHROMYCIN 500 MG in DEXTROSE 5%-WATER 250 ML IV SCH (22:32)
[2016-03-29] MEDS: ACETAMINOPHEN 650 MG SUPP.RECT PR PRN (22:34)
[2016-03-30] MEDS: AZTREONAM 1 GM in DEXTROSE 5%-WATER 50 ML IV SCH ×3 (01:30→17:04)
[2016-03-30 04:12] LABS: HEMATOCRIT 31.4 % (36.0-47.0); HEMOGLOBIN 9.3 g/dL (12.0-15.5); HGB HCT DIFFERENCE -3.5; MEAN CORPUSCULAR HEMOGLOBIN 21.4 pg (27.0-33.4); MEAN CORPUSCULAR HGB CONC 29.8 g/dL (32.0-36.0); MEAN CORPUSCULAR VOLUME 72 fl (80-97); RED BLOOD COUNT 4.37 10^6/uL (3.72-5.28); RED CELL DISTRIBUTION WIDTH 26.9 % (11.5-14.0); WHITE BLOOD COUNT 5.3 10^3/uL (4.0-10.5)
[2016-03-30 04:33] LABS: ALANINE AMINOTRANSFERASE 7 U/L (9-52); ALBUMIN 3.6 g/dL (3.5-5.0); ALKALINE PHOSPHATASE 60 U/L (38-126); ANION GAP 10 (5-19); ASPARTATE AMINO TRANSFERASE 13 U/L (14-36); BILIRUBIN,TOTAL 0.7 mg/dL (0.2-1.3); BLOOD UREA NITROGEN 5 mg/dL (7-20); CALCIUM 9.7 mg/dL (8.4-10.2); CARBON DIOXIDE 28 mmol/L (22-30); CHLORIDE 105 mmol/L (98-107); CREATINE KINASE 25 U/L (30-135); GLUCOSE 120 mg/dL (75-110); POTASSIUM 3.8 mmol/L (3.6-5.0); SODIUM 142.6 mmol/L (137-145); TOTAL PROTEIN 5.8 g/dL (6.3-8.2)
[2016-03-30 04:45] LABS: CREATINE KINASE MB 0.49 ng/mL (<4.55)
[2016-03-30 04:52] LABS: TROPONIN I < 0.012 ng/mL
[2016-03-30] MEDS: PANTOPRAZOLE SODIUM 40 MG VIAL IV SCH ×2 (06:35→17:04)
[2016-03-30] MEDS: METHYLPREDNISOLONE INJ 40 MG/1 ML SDV IV SCH ×2 (06:35→17:04)
[2016-03-30] MEDS: IPRATROPIUM/ALBUTEROL 0.5-2.5 MG/3 ML AMPUL NEB SCH ×3 (08:52→20:20)
[2016-03-30] MEDS: POTASSI CL 20 MEQ/D5-1/2NS 1L 1,000 ML IV PRN (09:13)
[2016-03-30] MEDS ORDERED: CYANOCOBALAMIN (VITAMIN B-12) INJ 1000 MCG/1 ML VIAL SUBCUT ONE (13:00)
--- NOTE | 2016-03-30 14:30 | PDOC PROGRESS REPORT ---
Subjective Progress Note for:: 03/30/16 Subjective:: ADRIAN BOWLES is a 60 year old female with known underlying COPD, admitted via EMS per above complaints from roommate. Patient was somnolent and rather confused and unable to provide history whatsoever in terms of acute or chronic events, review of systems, personal habits, family history, etc. [No friends or family are present.] [Old inpatient records are reviewed.]. She does deny pain. Patient reportedly has not been eating or drinking throughout the day. Becoming progressively less responsive. Reportedly has had a dry cough, but no pain, nausea vomiting or diarrhea. Did admit to the emergency room physician that she has not been eating or drinking at all today. She was placed on BiPAP and admitted to the hospital with good improvement in her overall status, patient wears CPAP at home but does not require home O2.. BiPAP is now been discontinued and she remained stable from a respiratory standpoint. Nursing staff reports some dysphagia with coughing on attempts at a bedside swallow exam, speech therapies been consulted. Patient was noted to be significantly anemic and reports prior required transfusions for same. She does not recall ever receiving colonoscopy. Dr. Quinonez's been consult it and ordered further iron studies and IV iron. She was also noted to be hypokalemic with supplementation provided. Patient presented largely somnolent, nursing reports she will get up with physical therapy at one point but intermittently very sleepy. Nursing also reports choking with sips of water and ice chips. Patient reports to me that she's had difficulty swallowing for several months now. Reports food sticking high up in her throat with occasional regurgitation or coughing of undigested food. Review of the old record indicates she has had a barium swallow in March 2015 noted to have gastroesophageal reflux to the mid one third of the esophagus with distal narrowing proximal to a large hiatal hernia. She does not recall having undergone endoscopy previously. She denies weight loss or night sweats. Barium swallow shows a small hiatal hernia but no obvious obstruction, ulceration or stricture. Speech therapy is reevaluated and cleared her for a mechanical soft diet and thin liquids. Nursing also notes intermittent bradycardia particularly while asleep she will drop her heart rate into the 40s. When awakened her heart rate usually recovers in the mid 50s to 60s the patient is asymptomatic. Overall condition is markedly improved. ROS: Total of 10 systems are reviewed with the patient, pertinent positives and negatives are noted, remaining systems are negative. Physical Exam Vital Signs: Temp Pulse Resp BP Pulse Ox 97.9 F 51 L 17 140/63 H 100 03/30/16 11:57 03/30/16 11:57 03/30/16 11:57 03/30/16 11:57 03/30/16 11:57 Intake & Output 03/29/16 03/30/16 03/31/16 06:59 06:59 06:59 Intake Total 1760 1950 Balance 1760 1950 Weight 54.6 kg 56 kg General appearance: PRESENT: no acute distress, thin Head exam: PRESENT: atraumatic, normocephalic Eye exam: PRESENT: conjunctiva pink, EOMI, PERRLA. ABSENT: scleral icterus Mouth exam: PRESENT: dry mucosa, tongue midline Neck exam: ABSENT: carotid bruit, JVD, lymphadenopathy, thyromegaly Respiratory exam: PRESENT: clear to auscultation rohan - Remains on supplemental O2. ABSENT: accessory muscle use, rales, rhonchi, unlabored, wheezes Cardiovascular exam: PRESENT: RRR. ABSENT: diastolic murmur, rubs, systolic murmur Pulses: PRESENT: normal dorsalis pedis pul GI/Abdominal exam: PRESENT: normal bowel sounds, soft. ABSENT: distended, guarding, rebound, tenderness Extremities exam: PRESENT: full ROM. ABSENT: calf tenderness, clubbing, pedal edema Neurological exam: PRESENT: alert, awake, oriented to person, oriented to place , oriented to time, oriented to situation Psychiatric exam: PRESENT: appropriate affect, normal mood Skin exam: PRESENT: dry, warm Results Laboratory Results: 03/30/16 03:50 03/30/16 03:50 03/30/16 03/30/16 03:50 03:50 WBC 5.3 RBC 4.37 Hgb 9.3 L Hct 31.4 L MCV 72 L MCH 21.4 L MCHC 29.8 L RDW 26.9 H Plt Count 190 Sodium 142.6 Potassium 3.8 Chloride 105 Carbon Dioxide 28 Anion Gap 10 BUN 5 L Creatinine 0.30 L Est GFR ( Amer) > 60 Est GFR (Non-Af Amer) > 60 Glucose 120 H Calcium 9.7 Phosphorus 3.0 Magnesium 2.0 Total Bilirubin 0.7 AST 13 L ALT 7 L Alkaline Phosphatase 60 Total Protein 5.8 L Albumin 3.6 03/28/16 05:40 Nasophary ([facility] Only) MRSA Culture - Final MRSA RECOVERED 03/30/16 03/30/16 03:50 03:50 Creatine Kinase 25 L CK-MB (CK-2) 0.49 Troponin I < 0.012 Impressions: Chest X-Ray 03/27/16 20:51 IMPRESSION: No significant interval change. No acute findings. Other findings as noted above Head MRI 03/29/16 11:30 IMPRESSION: ESSENTIALLY NORMAL MRI OF THE BRAIN WITHOUT INTRAVENOUS GADOLINIUM CONTRAST. Esophagus X-Ray 03/30/16 00:00 IMPRESSION: Small hiatal hernia without stricture or Schatzki's ring. Patient swallowed a 12 mm barium tablet without difficulty. Mild gastroesophageal reflux to the lower 3rd of the esophagus Assessment & Plan - Diagnosis (1) Acute and chronic respiratory failure ([id number]) Qualifiers: Respiratory failure complication: hypoxia and hypercapnia Qualified Code(s): J96.21 - Acute and chronic respiratory failure with hypoxia Is this a current diagnosis for this admission?: YesPlan: Improved and back to baseline. Continue broad-spectrum antibiotics and systemic IV steroids and continue aggressive pulmonary toilet. Intermittent BiPAP as needed for respiratory distress, increased work of breathing, worsening encephalopathy. Perhaps begin weaning antibiotics tomorrow. (2) Acute encephalopathy Is this a current diagnosis for this admission?: YesPlan: Resolved. Unclear etiology, likely multifactorial with a component of hypercapnia\CO2 narcosis and dehydration. B12 low level of normal and ammonia levels normal. Check MRI of the brain and echocardiogram to evaluate for stroke and its possible source. (3) Decreased oral intake Is this a current diagnosis for this admission?: YesPlan: Dictated by dysphagia of Unclear etiology. probably related to the acute encephalopathy but possibly related to esophageal stricture and/or severe erosive esophagitis from ongoing gastroesophageal reflux disease. pre-albumin low normal. Advance diet to mechanical soft and thin liquids per speech therapy 's recommendations. (4) Heme + stool Is this a current diagnosis for this admission?: YesPlan: Transfused 2 units packed red blood cells. Trend H&H. Continue PPI therapy. Consult GI but given her respiratory and mental status unlikely to perform invasive procedure until improved and per review of their notes will evaluate as an outpatient.. (5) Anemia Qualifiers: Anemia type: iron deficiency Iron deficiency anemia type: unspecified iron deficiency Is this a current diagnosis for this admission?: YesPlan: As above. Hematology consult appreciated. IV iron sucrose completed. Continue to trend H&H. (6) Hypernatremia Is this a current diagnosis for this admission?: YesPlan: Received IV fluids on admission. Resolved (7) Hypokalemia Is this a current diagnosis for this admission?: YesPlan: Resolved (9) Bacteremia Is this a current diagnosis for this admission?: YesPlan: Probable contaminant. repeat blood cultures no growth so far. (10) Hypomagnesemia Is this a current diagnosis for this admission?: YesPlan: Check again in a.m. and replace as needed. - Time Time Spent with patient: 25-34 minutes Medications reviewed and adjusted accordingly: Yes Anticipated discharge: Home - Patient wants to go home, is not willing to consider rehabilitation in my opinion
--- NOTE | 2016-03-30 15:07 | EKG REPORT ---
SEVERITY:- ABNORMAL ECG - SINUS BRADYCARDIA LEFT VENTRICULAR HYPERTROPHY : Confirmed by: Lissy Willingham 30-Mar-2016 15:07:06
[2016-03-30] MEDS: AZITHROMYCIN 500 MG in DEXTROSE 5%-WATER 250 ML IV SCH (22:55)
[2016-03-31] MEDS: AZTREONAM 1 GM in DEXTROSE 5%-WATER 50 ML IV SCH ×3 (02:10→18:16)
[2016-03-31] MEDS: PANTOPRAZOLE SODIUM 40 MG VIAL IV SCH (05:10)
[2016-03-31] MEDS: METHYLPREDNISOLONE INJ 40 MG/1 ML SDV IV SCH ×2 (05:10→18:16)
[2016-03-31] MEDS: POTASSI CL 20 MEQ/D5-1/2NS 1L 1,000 ML IV PRN (05:15)
[2016-03-31 07:47] LABS: ANION GAP 9 (5-19); BLOOD UREA NITROGEN 5 mg/dL (7-20); CALCIUM 9.6 mg/dL (8.4-10.2); CARBON DIOXIDE 27 mmol/L (22-30); CHLORIDE 106 mmol/L (98-107); CREATININE RESULT 0.31 mg/dL (0.52-1.25); GLUCOSE 97 mg/dL (75-110); MAGNESIUM 1.8 mg/dL (1.6-2.3); POTASSIUM 3.3 mmol/L (3.6-5.0); SODIUM 142.2 mmol/L (137-145)
[2016-03-31] MEDS: IPRATROPIUM/ALBUTEROL 0.5-2.5 MG/3 ML AMPUL NEB SCH ×3 (08:44→20:54)
[2016-03-31] MEDS ORDERED: TRAMADOL HCL 50 MG TABLET PO PRN (08:51)
[2016-03-31] MEDS ORDERED: ACETAMINOPHEN 325 MG TABLET PO PRN (08:54)
[2016-03-31] MEDS: POTASSIUM CHLORIDE 10 MEQ TABLET.SA PO SCH ×2 (11:01→21:14)
[2016-03-31] MEDS: OXYBUTYNIN CHLORIDE 5 MG TABLET PO SCH ×2 (11:01→18:16)
--- NOTE | 2016-03-31 11:43 | PDOC PROGRESS REPORT ---
Subjective Progress Note for:: 03/31/16 Subjective:: ADRIAN BOWLES is a 60 year old female with known underlying COPD, admitted via EMS per above complaints from roommate. Patient was somnolent and rather confused and unable to provide history whatsoever in terms of acute or chronic events, review of systems, personal habits, family history, etc. [No friends or family are present.] [Old inpatient records are reviewed.]. She does deny pain. Patient reportedly has not been eating or drinking throughout the day. Becoming progressively less responsive. Reportedly has had a dry cough, but no pain, nausea vomiting or diarrhea. Did admit to the emergency room physician that she has not been eating or drinking at all today. She was placed on BiPAP and admitted to the hospital with good improvement in her overall status, patient wears CPAP at home but does not require home O2.. BiPAP is now been discontinued and she remained stable from a respiratory standpoint. Nursing staff reports some dysphagia with coughing on attempts at a bedside swallow exam, speech therapies been consulted. Patient was noted to be significantly anemic and reports prior required transfusions for same. She does not recall ever receiving colonoscopy. Dr. Quinonez's been consult it and ordered further iron studies and IV iron. She was also noted to be hypokalemic with supplementation provided. Patient presented largely somnolent, nursing reports she will get up with physical therapy at one point but intermittently very sleepy. Nursing also reports choking with sips of water and ice chips. Patient reports to me that she's had difficulty swallowing for several months now. Reports food sticking high up in her throat with occasional regurgitation or coughing of undigested food. Review of the old record indicates she has had a barium swallow in March 2015 noted to have gastroesophageal reflux to the mid one third of the esophagus with distal narrowing proximal to a large hiatal hernia. She does not recall having undergone endoscopy previously. She denies weight loss or night sweats. Barium swallow shows a small hiatal hernia but no obvious obstruction, ulceration or stricture. Speech therapy is reevaluated and cleared her for a mechanical soft diet and thin liquids. Nursing also notes intermittent bradycardia particularly while asleep she will drop her heart rate into the 40s. When awakened her heart rate usually recovers in the mid 50s to 60s the patient is asymptomatic. Overall condition is markedly improved. This morning complaining of frontal headache, dull achy in nature, nonradiating , no exacerbating or alleviating factors, no associated symptoms. States she has periodic headaches at home and takes tramadol as needed. She is tolerating her diet without any difficulty swallowing. No nausea or vomiting. Takes her breathing is close to baseline. Continues to complain of a hacking cough nonproductive in nature. ROS: Total of 10 systems are reviewed with the patient, pertinent positives and negatives are noted, remaining systems are negative. Physical Exam Vital Signs: Temp Pulse Resp BP Pulse Ox 98.0 F 60 18 161/73 H 98 03/31/16 07:18 03/31/16 08:44 03/31/16 08:44 03/31/16 07:18 03/31/16 08:44 Intake & Output 03/30/16 03/31/16 04/01/16 06:59 06:59 06:59 Intake Total 1950 1320 Output Total 1400 Balance 1950 -80 Weight 56 kg 55.5 kg General appearance: PRESENT: no acute distress, cooperative, thin Eye exam: PRESENT: conjunctiva pink, EOMI, PERRLA. ABSENT: scleral icterus Mouth exam: PRESENT: moist, tongue midline Neck exam: ABSENT: carotid bruit, JVD, lymphadenopathy, thyromegaly Respiratory exam: PRESENT: accessory muscle use, prolonged expiratory phas, unlabored, wheezes - Faint end expiratory wheeze right apex Cardiovascular exam: PRESENT: bradycardia. ABSENT: systolic murmur Pulses: PRESENT: normal dorsalis pedis pul GI/Abdominal exam: PRESENT: normal bowel sounds, soft. ABSENT: distended, guarding, rebound, tenderness Extremities exam: PRESENT: full ROM. ABSENT: calf tenderness, clubbing, pedal edema Musculoskeletal exam: PRESENT: full ROM, other - Still weak 4 out of 5 at best Neurological exam: PRESENT: alert, awake, oriented to person, oriented to place , oriented to time, oriented to situation Psychiatric exam: PRESENT: appropriate affect, normal mood Skin exam: PRESENT: dry, intact, warm. ABSENT: cyanosis, rash Results Laboratory Results: 03/30/16 03:50 03/31/16 07:12 03/31/16 07:12 Sodium 142.2 Potassium 3.3 L Chloride 106 Carbon Dioxide 27 Anion Gap 9 BUN 5 L Creatinine 0.31 L Est GFR ( Amer) > 60 Est GFR (Non-Af Amer) > 60 Glucose 97 Calcium 9.6 Magnesium 1.8 03/30/16 03/30/16 03:50 03:50 Creatine Kinase 25 L CK-MB (CK-2) 0.49 Troponin I < 0.012 Impressions: Chest X-Ray 03/27/16 20:51 IMPRESSION: No significant interval change. No acute findings. Other findings as noted above Head MRI 03/29/16 11:30 IMPRESSION: ESSENTIALLY NORMAL MRI OF THE BRAIN WITHOUT INTRAVENOUS GADOLINIUM CONTRAST. Esophagus X-Ray 03/30/16 00:00 IMPRESSION: Small hiatal hernia without stricture or Schatzki's ring. Patient swallowed a 12 mm barium tablet without difficulty. Mild gastroesophageal reflux to the lower 3rd of the esophagus Assessment & Plan - Diagnosis (1) Acute and chronic respiratory failure ([id number]) Qualifiers: Respiratory failure complication: hypoxia and hypercapnia Qualified Code(s): J96.21 - Acute and chronic respiratory failure with hypoxia Is this a current diagnosis for this admission?: YesPlan: Improved and back to baseline. Continue broad-spectrum antibiotics and systemic IV steroids and continue aggressive pulmonary toilet. Intermittent BiPAP as needed for respiratory distress, increased work of breathing, worsening encephalopathy. Perhaps begin weaning antibiotics tomorrow. (2) Acute encephalopathy Is this a current diagnosis for this admission?: YesPlan: Resolved. Unclear etiology, likely multifactorial with a component of hypercapnia\CO2 narcosis and dehydration. B12 low level of normal and ammonia levels normal. Check MRI of the brain and echocardiogram to evaluate for stroke and its possible source. (3) Decreased oral intake Is this a current diagnosis for this admission?: YesPlan: Seemingly resolved, dysphagia at presentation of Unclear etiology but probably related to the acute encephalopathy or possibly related to esophageal stricture and/or severe erosive esophagitis from ongoing gastroesophageal reflux disease. pre-albumin low normal. Advance diet to mechanical soft and thin liquids per speech therapy's recommendations. Barium swallow essentially negative. (4) Heme + stool Is this a current diagnosis for this admission?: YesPlan: Transfused 2 units packed red blood cells. Trend H&H. Continue PPI therapy. Consult GI but given her respiratory and mental status unlikely to perform invasive procedure until improved and per review of their notes will evaluate as an outpatient.. (5) Anemia Qualifiers: Anemia type: iron deficiency Iron deficiency anemia type: unspecified iron deficiency Is this a current diagnosis for this admission?: Yes (6) Hypernatremia Is this a current diagnosis for this admission?: Yes (7) Hypokalemia Is this a current diagnosis for this admission?: Yes (9) Bacteremia Is this a current diagnosis for this admission?: Yes (10) Hypomagnesemia Is this a current diagnosis for this admission?: Yes - Time Time Spent with patient: 25-34 minutes
--- NOTE | 2016-03-31 14:20 | PDOC PROGRESS REPORT ---
Subjective Progress Note for:: 03/31/16 Subjective:: Feeling better. Strength is also returning and able to get out of bed now. Physical Exam Vital Signs: Temp Pulse Resp BP Pulse Ox 98.2 F 64 18 133/67 H 98 03/31/16 11:06 03/31/16 11:06 03/31/16 11:06 03/31/16 11:06 03/31/16 11:06 Intake & Output 03/30/16 03/31/16 04/01/16 06:59 06:59 06:59 Intake Total 1950 1320 473 Output Total 1400 Balance 1950 -80 473 Weight 56 kg 55.5 kg General appearance: PRESENT: no acute distress Head exam: PRESENT: normocephalic Eye exam: PRESENT: conjunctiva pink, EOMI Ear exam: PRESENT: normal external ear exam Mouth exam: PRESENT: neck supple Respiratory exam: PRESENT: prolonged expiratory phas, other - Occ'l rhonchi Cardiovascular exam: PRESENT: RRR GI/Abdominal exam: PRESENT: normal bowel sounds, soft Neurological exam: PRESENT: alert, awake, oriented to person, oriented to place , oriented to time, oriented to situation Results Laboratory Results: 03/30/16 03:50 03/31/16 07:12 03/31/16 07:12 Sodium 142.2 Potassium 3.3 L Chloride 106 Carbon Dioxide 27 Anion Gap 9 BUN 5 L Creatinine 0.31 L Est GFR ( Amer) > 60 Est GFR (Non-Af Amer) > 60 Glucose 97 Calcium 9.6 Magnesium 1.8 03/30/16 03/30/16 03:50 03:50 Creatine Kinase 25 L CK-MB (CK-2) 0.49 Troponin I < 0.012 Impressions: Chest X-Ray 03/27/16 20:51 IMPRESSION: No significant interval change. No acute findings. Other findings as noted above Head MRI 03/29/16 11:30 IMPRESSION: ESSENTIALLY NORMAL MRI OF THE BRAIN WITHOUT INTRAVENOUS GADOLINIUM CONTRAST. Esophagus X-Ray 03/30/16 00:00 IMPRESSION: Small hiatal hernia without stricture or Schatzki's ring. Patient swallowed a 12 mm barium tablet without difficulty. Mild gastroesophageal reflux to the lower 3rd of the esophagus Assessment & Plan - Diagnosis (1) Acute and chronic respiratory failure ([id number]) Qualifiers: Respiratory failure complication: hypoxia and hypercapnia Qualified Code(s): J96.21 - Acute and chronic respiratory failure with hypoxia Is this a current diagnosis for this admission?: YesPlan: Improved with pulmonary toilet and antibiotics (2) Acute encephalopathy Is this a current diagnosis for this admission?: YesPlan: Resolved with negative MRI (3) Heme + stool Is this a current diagnosis for this admission?: Yes (4) Anemia Qualifiers: Anemia type: iron deficiency Iron deficiency anemia type: unspecified iron deficiency Is this a current diagnosis for this admission?: YesPlan: Barium swallow with reflux and to see GI as an outpatient. - Time Time Spent with patient: 25-34 minutes Critical Time spent with patient: 15-24 minutes - Inpatient Certification I certify that my determination is in accordance with my understanding of Medicare's requirements for reasonable and necessary INPATIENT services [42 CFR 412.3e].: Yes Medical Necessity: Need for IV Antibiotics
[2016-03-31] MEDS: LANSOPRAZOLE 30 MG TAB.RAP.DR PO SCH (18:18)
[2016-03-31] MEDS: AZITHROMYCIN 500 MG in DEXTROSE 5%-WATER 250 ML IV SCH (21:16)
[2016-04-01] MEDS: AZTREONAM 1 GM in DEXTROSE 5%-WATER 50 ML IV SCH ×2 (01:45→10:24)
[2016-04-01] MEDS: LANSOPRAZOLE 30 MG TAB.RAP.DR PO SCH (05:35)
[2016-04-01] MEDS: METHYLPREDNISOLONE INJ 40 MG/1 ML SDV IV SCH (05:36)
[2016-04-01 06:39] LABS: HEMATOCRIT 29.8 % (36.0-47.0); HEMOGLOBIN 8.8 g/dL (12.0-15.5); HGB HCT DIFFERENCE -3.4; MEAN CORPUSCULAR HEMOGLOBIN 21.8 pg (27.0-33.4); MEAN CORPUSCULAR HGB CONC 29.7 g/dL (32.0-36.0); MEAN CORPUSCULAR VOLUME 74 fl (80-97); RED BLOOD COUNT 4.06 10^6/uL (3.72-5.28); RED CELL DISTRIBUTION WIDTH 27.6 % (11.5-14.0); WHITE BLOOD COUNT 6.4 10^3/uL (4.0-10.5)
[2016-04-01 07:05] LABS: ANION GAP 9 (5-19); BLOOD UREA NITROGEN 7 mg/dL (7-20); CALCIUM 9.4 mg/dL (8.4-10.2); CARBON DIOXIDE 29 mmol/L (22-30); CHLORIDE 104 mmol/L (98-107); CREATININE RESULT 0.32 mg/dL (0.52-1.25); GLUCOSE 90 mg/dL (75-110); MAGNESIUM 1.7 mg/dL (1.6-2.3); POTASSIUM 3.9 mmol/L (3.6-5.0); SODIUM 141.8 mmol/L (137-145)
[2016-04-01] MEDS: IPRATROPIUM/ALBUTEROL 0.5-2.5 MG/3 ML AMPUL NEB SCH (07:44)
[2016-04-01] MEDS: OXYBUTYNIN CHLORIDE 5 MG TABLET PO SCH (10:22)
[2016-04-01] MEDS: POTASSIUM CHLORIDE 10 MEQ TABLET.SA PO SCH (10:23)
--- NOTE | 2016-04-01 11:37 | PDOC DISCHARGE SUMMARY ---
General - Admit/Disc Date/PCP Admission Date/Primary Care Provider: 03/28/16 01:32 Discharge Date: 04/01/16 - Discharge Diagnosis (1) Acute and chronic respiratory failure ([id number]) Is this a current diagnosis for this admission?: YesSummary: Back to baseline. Has some abdominal O2 at home as needed. Has nebulizer machine at home. (2) Acute encephalopathy Is this a current diagnosis for this admission?: YesSummary: Resolved, likely multifactorial. (3) Decreased oral intake Is this a current diagnosis for this admission?: YesSummary: Markedly improved. She is eating 100% of all of her meals. She shows no difficulty swallowing, dysphagia during meals. (4) Heme + stool Is this a current diagnosis for this admission?: YesSummary: Will need GI follow-up as an outpatient. (5) Anemia Is this a current diagnosis for this admission?: YesSummary: Status post successful transfusion. Many thanks to hematology for following. Gastroenterology evaluated in hospital and is anticipating outpatient follow-up for endoscopy once respiratory status stabilizes. (6) Hypernatremia Is this a current diagnosis for this admission?: YesSummary: Resolved (7) Hypokalemia Is this a current diagnosis for this admission?: YesSummary: Resolved (8) Obstructive chronic bronchitis with exacerbation Is this a current diagnosis for this admission?: YesSummary: Continue course of antibiotics. Follow-up with primary care provider in one week. (9) Bacteremia Is this a current diagnosis for this admission?: Yes (10) Hypomagnesemia Is this a current diagnosis for this admission?: Yes - Additional Information Resuscitation Status: Full Code Discharge Diet: As Tolerated Discharge Activity: Activity As Tolerated Home Medications: Albuterol Sulfate [Proair Respiclick] 2 puff IH Q6HP PRN 03/28/16 Guaifenesin/Codeine Phosphate [Cheratussin AC Syrup] 5 ml PO HSP PRN 03/28/16 Hydroxyzine HCl [Atarax 25 mg Tablet] 25 mg PO Q6 03/28/16 Omeprazole 40 mg PO DAILY 03/28/16 Oxybutynin Chloride [Ditropan 5 mg Tablet] 5 mg PO BID 03/28/16 Triamcinolone Acetonide [Aristocort 0.5% Cream 15 gm] 1 applic TP BID 03/28/16 Albuterol Sulfate [Ventolin 0.083% Neb 2.5 mg/3 mL Ampul] 2.5 mg NEB RTQ4HP PRN #0 vial.neb 04/01/16 Doxycycline Hyclate [Vibramycin] 100 mg PO BID #20 capsule 04/01/16 Flu Vacc [id number] 36Mos Up/Pf [Fluzone Adlt Quad [id number] Vac 0.5 ml Syr] 0.5 ml IM .AT DISCHARGE PRN #0 disp.syrin 04/01/16 Hydrocodone/Acetaminophen [Waite 5-325 mg Tablet] 1 tab PO Q6HP PRN #14 tablet 04/01/16 History of Present Illness History of Present Illness: ADRIAN BOWLES is a 60 year old female with known underlying COPD, admitted via EMS due to COPD exacerbation, CO2 narcosis, acute metabolic encephalopathy. Hospital Course Hospital Course: ADRIAN BOWLES is a 60 year old female with known underlying COPD, admitted via EMS per above complaints from roommate. Patient was somnolent and rather confused and unable to provide history whatsoever in terms of acute or chronic events, review of systems, personal habits, family history, etc. [No friends or family are present.] [Old inpatient records are reviewed.]. She does deny pain. Patient reportedly has not been eating or drinking throughout the day. Becoming progressively less responsive. Reportedly has had a dry cough, but no pain, nausea vomiting or diarrhea. Did admit to the emergency room physician that she has not been eating or drinking at all today. She was placed on BiPAP and admitted to the hospital with good improvement in her overall status, patient wears CPAP at home but does not require home O2.. BiPAP is now been discontinued and she remained stable from a respiratory standpoint. Nursing staff reports some dysphagia with coughing on attempts at a bedside swallow exam, speech therapies been consulted. Patient was noted to be significantly anemic and reports prior required transfusions for same. She does not recall ever receiving colonoscopy. Dr. Quinonez's been consult it and ordered further iron studies and IV iron. She was also noted to be hypokalemic with supplementation provided. Patient presented largely somnolent, nursing reports she will get up with physical therapy at one point but intermittently very sleepy. Nursing also reports choking with sips of water and ice chips. Patient reports to me that she's had difficulty swallowing for several months now. Reports food sticking high up in her throat with occasional regurgitation or coughing of undigested food. Review of the old record indicates she has had a barium swallow in March 2015 noted to have gastroesophageal reflux to the mid one third of the esophagus with distal narrowing proximal to a large hiatal hernia. She does not recall having undergone endoscopy previously. She denies weight loss or night sweats. Barium swallow shows a small hiatal hernia but no obvious obstruction, ulceration or stricture. Speech therapy is reevaluated and cleared her for a mechanical soft diet and thin liquids. Nursing also notes intermittent bradycardia particularly while asleep she will drop her heart rate into the 40s. When awakened her heart rate usually recovers in the mid 50s to 60s the patient is asymptomatic. Overall condition is markedly improved. This morning complaining of frontal headache, dull achy in nature, nonradiating , no exacerbating or alleviating factors, no associated symptoms. States she has periodic headaches at home and takes tramadol as needed. She is tolerating her diet without any difficulty swallowing. No nausea or vomiting. Takes her breathing is close to baseline. Continues to complain of a hacking cough nonproductive in nature. This morning she is clearly back to baseline, mental status is normal. Found her sitting on the edge of the bed ravenously consuming her breakfast without any difficulty swallowing. Her respiratory status is back to baseline. She is anxious for discharge home. She states she has risk family members and friends and one of whom is a home health nurse who agreed to check on her. She continues to complain of generalized aches and pains, mostly musculoskeletal in nature and is requesting a short course of opiates. I provided low-dose prescription for Waite 5 mg with total of 14 and no refills. She is to follow- up with her primary care provider for any additional medications. She is to see her PCP in one week. Physical Exam Vital Signs: Temp Pulse Resp BP Pulse Ox 97.7 F 82 16 168/78 H 95 04/01/16 07:11 04/01/16 07:44 04/01/16 07:44 04/01/16 07:11 04/01/16 07:44 Intake & Output 03/31/16 04/01/16 04/02/16 06:59 06:59 06:59 Intake Total 1320 2373 Output Total 1400 Balance -80 2373 Weight 55.5 kg 54.658 kg General appearance: PRESENT: no acute distress Head exam: PRESENT: atraumatic, normocephalic Eye exam: PRESENT: EOMI, PERRLA Respiratory exam: PRESENT: clear to auscultation rohan, prolonged expiratory phas , unlabored Cardiovascular exam: PRESENT: RRR Neurological exam: PRESENT: alert, awake, oriented to person, oriented to place , oriented to time, oriented to situation Results Laboratory Results: 04/01/16 06:13 04/01/16 06:13 04/01/16 04/01/16 06:13 06:13 WBC 6.4 RBC 4.06 Hgb 8.8 L Hct 29.8 L MCV 74 L MCH 21.8 L MCHC 29.7 L RDW 27.6 H Plt Count 190 Sodium 141.8 Potassium 3.9 Chloride 104 Carbon Dioxide 29 Anion Gap 9 BUN 7 Creatinine 0.32 L Est GFR ( Amer) > 60 Est GFR (Non-Af Amer) > 60 Glucose 90 Calcium 9.4 Magnesium 1.7 03/30/16 03/30/16 03:50 03:50 Creatine Kinase 25 L CK-MB (CK-2) 0.49 Troponin I < 0.012 Impressions: Chest X-Ray 03/27/16 20:51 IMPRESSION: No significant interval change. No acute findings. Other findings as noted above Head MRI 03/29/16 11:30 IMPRESSION: ESSENTIALLY NORMAL MRI OF THE BRAIN WITHOUT INTRAVENOUS GADOLINIUM CONTRAST. Esophagus X-Ray 03/30/16 00:00 IMPRESSION: Small hiatal hernia without stricture or Schatzki's ring. Patient swallowed a 12 mm barium tablet without difficulty. Mild gastroesophageal reflux to the lower 3rd of the esophagus Qualifiers PATEINT BEING DISCHARGED WITH ANY OF THE FOLLOWING DIAGNOSIS?: No Plan Discharge Plan: Continue course of antibiotics. Follow up with her PCP in one week. Time Spent: Greater than 30 Minutes
[2016-04-01 12:09] VITALS: BP 162/84
== END 2016-04-01 14:14 | disposition home or self-care (01) | DRG 189 ==
LOC: ER 20:33 → UNDOADMIN 03-28 00:12 → EH 03-28 00:12 → 3S 03-28 02:45
PROVIDERS: ADMIT Family Medicine; ATTEND Family Medicine
PROC: 5A09457 Assistance with Respiratory Ventilation, 24-96 Consecutive Hours, Continuous Positive Airway Pressure (ICD-10-PCS; principal; 2016-03-28)
PROC: 30233N1 Transfusion of Nonautologous Red Blood Cells into Peripheral Vein, Percutaneous Approach (ICD-10-PCS; 2016-03-28)
DX: J96.21 Acute and chronic respiratory failure with hypoxia (principal); G93.41 Metabolic encephalopathy; J44.1 Chronic obstructive pulmonary disease with (acute) exacerbation; K92.1 Melena; E87.0 Hyperosmolality and hypernatremia; F11.20 Opioid dependence, uncomplicated; D50.9 Iron deficiency anemia, unspecified; J96.22 Acute and chronic respiratory failure with hypercapnia; I25.10 Atherosclerotic heart disease of native coronary artery without angina pectoris; F17.210 Nicotine dependence, cigarettes, uncomplicated; K21.9 Gastro-esophageal reflux disease without esophagitis; I50.9 Heart failure, unspecified; Z90.49 Acquired absence of other specified parts of digestive tract; G43.909 Migraine, unspecified, not intractable, without status migrainosus; G40.909 Epilepsy, unspecified, not intractable, without status epilepticus; E78.5 Hyperlipidemia, unspecified; M19.90 Unspecified osteoarthritis, unspecified site; Z86.14 Personal history of Methicillin resistant Staphylococcus aureus infection; E87.6 Hypokalemia; E83.42 Hypomagnesemia; R13.10 Dysphagia, unspecified; Z88.0 Allergy status to penicillin; Z96.642 Presence of left artificial hip joint
CPT/HCPCS: 36415; 36430; 51701; 70551; 71010; 74220; 80048; 80053; 80307; 81001; 82140; 82272; 82550; 82553; 82607; 82728; 82746; 82803; 82962; 83540; 83550; 83605; 83690; 83735; 84100; 84134; 84443; 84466; 84484; 85025; 85027; 85045; 85610; 85730; 86850; 86900; 86901; 86920; 87040; 87070; 87077; 87086; 87186; 93005; 93010; 93306; 94640; 94660; 96360; 99291; G8978-GP; G8979-GP; G8996-GN; G8997-GN; J0456; J1200; J1642; J1750; J2920; J3420; J3475; J3480; J3490; J7030; J7040; J7060; J7620; P9016; S0164

== ENCOUNTER 2017-03-27 18:40 | Inpatient (IN) | payer MEDICARE, MEDICAID ==
[~2017-03-27 18:40] MED LIST: SUCCINYLCHOLINE CHLORIDE INJ 200 MG/10 ML VIAL ONE
--- NOTE | 2017-03-27 19:00 | ER Document Report ---
ED General - General Mode of Arrival: Medic Information source: Emergency Med Personnel TRAVEL OUTSIDE OF THE [place] IN LAST 30 DAYS: No - HPI Patient complains to provider of: Weakness and shortness of breath Onset: This evening Associated symptoms: Other - see notes above <SUE ALAN - Last Filed: 03/28/17 00:35> <DIEGOLAURIE ANNETTE - Last Filed: 03/28/17 05:12> - General Chief Complaint: General Weakness Stated Complaint: WEAKNESS Notes: 61 year old female with history of COPD and bronchitis presents to the ED via EMS after being found hypoxic at 87% on 4L nasal cannula, febrile, and short of breath earlier this evening. EMS gave the patient Tylenol for her fever. EMS also reports that the patient was complaining of weakness. (SUE AALN) - Related Data Allergies/Adverse Reactions: Penicillins Allergy (Mild, Verified 03/20/14 21:10) Past Medical History - General Information source: Emergency Med Personnel - Social History Smoking Status: Unknown if Ever Smoked Family History: Reviewed & Not Pertinent - Past Medical History Cardiac Medical History: Reports: Hx Congestive Heart Failure, Hx Coronary Artery Disease, Hx Hypercholesterolemia Pulmonary Medical History: Reports: Hx Bronchitis, Hx COPD Neurological Medical History: Reports: Hx Migraine GI Medical History: Reports: Hx Gastroesophageal Reflux Disease Musculoskeltal Medical History: Reports Hx Arthritis Psychiatric Medical History: Reports: Hx Anxiety, Hx Depression Past Surgical History: Reports: Hx Adenoidectomy, Hx Cholecystectomy, Hx Orthopedic Surgery - left total hip, Hx Tonsillectomy - Immunizations Hx Diphtheria, Pertussis, Tetanus Vaccination: Yes <SUE ALAN - Last Filed: 03/28/17 00:35> Review of Systems - Review of Systems Constitutional: See HPI, Fever, Weakness EENT: No symptoms reported Cardiovascular: No symptoms reported Respiratory: See HPI, Short of breath Gastrointestinal: No symptoms reported Genitourinary: No symptoms reported Female Genitourinary: No symptoms reported Musculoskeletal: No symptoms reported Skin: No symptoms reported Hematologic/Lymphatic: No symptoms reported Neurological/Psychological: No symptoms reported -: Yes All other systems reviewed and negative <SUE ALAN - Last Filed: 03/28/17 00:35> Physical Exam - Vital signs Interpretation: Hypotensive, Hypoxic, Febrile - General General appearance: Other - Chronically ill appearing, cachectic, and drowsy but arousable. In distress: None - HEENT Head: Normocephalic, Atraumatic Eyes: Normal Extraocular movements intact: Yes Pupils: PERRL - Respiratory Respiratory status: No respiratory distress Breath sounds: Rales - bilateral bases, Wheezing - expiratory wheezing to the upper airway, bilaterally - Cardiovascular Rhythm: Regular Heart sounds: Normal auscultation - Abdominal Inspection: Normal - Neurological Cognition: Confused - Skin Skin Temperature: Warm Skin Moisture: Dry Skin Color: Normal <SUE ALAN - Last Filed: 03/28/17 00:35> - Vital signs Vitals: Resp Pulse Ox 25 H 99 03/27/17 18:51 03/27/17 18:51 Course - Laboratory Result Diagrams: 03/27/17 19:05 03/27/17 19:05 - Consults Dr. Willoughby Time consulted: 21:27 <SUE ALAN - Last Filed: 03/28/17 00:35> - Laboratory Result Diagrams: 03/27/17 19:05 03/27/17 19:05 - Diagnostic Test Radiology reviewed: Image reviewed, Reports reviewed <LAURIE CORTEZ - Last Filed: 03/28/17 05:12> - Re-evaluation Re-evalutation: 03/27/17 20:45 Patient re-evaluated and initially appeared unresponsive, but is awake and alert now. Informed will be put on BiPAP and agrees with plan. (SUE ALAN) 03/28/17 0000 Patient is a 61-year-old female who comes in with wheezing and confusion. Patient also is febrile. Flu swab negative. Concern for pneumonia and sepsis. Culture sent. Antibiotics started. Patient also given DuoNeb and magnesium. Patient clinically improved with BiPAP. Awake and asking for her to be removed. Would like a Pepsi. Patient has been advised that it is necessary to keep BiPAP on to try to keep her from being placed on ventilator. She will be admitted to the hospitalist service. Patient is agreeable to this plan. Patient is still hypotensive. Tachycardia has resolved. She is 90-100% on BiPAP. Still with wheezing. Mental status improving. 03/28/17 02:37 Patient with worsening blood gas and mentation. Patient will be intubated for respiratory failure and airway protection. Please see procedure note. Patient will be upgraded to ICU. (LAURIE CORTEZ) - Vital Signs Vital signs: Temp Pulse Resp BP Pulse Ox 100.1 F 22 H 106/64 100 03/27/17 19:48 03/28/17 02:30 03/28/17 02:30 03/28/17 03:21 - Laboratory Laboratory results interpreted by me: 03/27/17 03/27/17 03/27/17 19:05 19:05 19:05 Hgb 10.9 L Hct 34.8 L MCH 26.4 L MCHC 31.2 L RDW 21.9 H PT 16.3 H VBG pH VBG pCO2 Sodium 147.2 H Potassium 3.3 L Chloride 109 H BUN 25 H Creatinine 0.45 L Glucose 124 H Lactic Acid Urine Ketones 03/27/17 03/27/17 03/27/17 19:05 19:05 19:40 Hgb Hct MCH MCHC RDW PT VBG pH 7.24 L VBG pCO2 63.3 H Sodium Potassium Chloride BUN Creatinine Glucose Lactic Acid < 0.5 L Urine Ketones 20 H - Consults Dr. Willoughby Reason for consultation: 03/28/17 21:[address] Willoughby who agrees to admit the patient. (SUE ALAN) Procedures - Intubation Orotracheal Airway evaluation: Normal anatomy Mallampati Classification: Class 3 Medications: Etomidate Intubation method: Orotracheal Blade type: Christine Blade size: 3 Equipment used: Glidescope ETT size: 7.5 ETT secured at: Gums Breath Sounds after Intubation: Equal End tidal CO2 confirmed: Yes Post Intubation Xray: Yes - good placement Intubation Complications: No complications <LAURIE CORTEZ - Last Filed: 03/28/17 05:12> Discharge <SUE ALAN - Last Filed: 03/28/17 00:35> - Discharge Admitting Provider: José Miguel willoughby Unit Admitted: ICU <LAURIE CORTEZ - Last Filed: 03/28/17 05:12> - Discharge Clinical Impression: Obstructive chronic bronchitis with exacerbation Fever Qualifiers: Fever type: unspecified Qualified Code(s): R50.9 - Fever, unspecified Pneumonia Qualifiers: Pneumonia type: due to unspecified organism Laterality: unspecified laterality Lung location: unspecified part of lung Qualified Code(s): J18.9 - Pneumonia, unspecified organism Sepsis Qualifiers: Sepsis type: sepsis due to unspecified organism Qualified Code(s): A41.9 - Sepsis, unspecified organism Condition: Stable Disposition: ADMITTED INPATIENT Scribe Attestation: 03/28/17 05:12 I personally performed the services described in the documentation, reviewed and edited the documentation which was dictated to the scribe in my presence, and it accurately records my words and actions. (LAURIE CORTEZ) Scribe Documentation - Scribe Written by Scribe:: Bryan Tran 03/27/2017 193 acting as scribe for :: Diego <SUE ALAN - Last Filed: 03/28/17 00:35>
[2017-03-27] MEDS ORDERED: NORMAL SALINE 1000 ML 1,000 ML IV ONE ×2 (19:05→22:02)
[2017-03-27] MEDS ORDERED: IPRATROPIUM/ALBUTEROL 0.5-2.5 MG/3 ML AMPUL NEB ONE (19:05)
[2017-03-27] MEDS ORDERED: METHYLPREDNISOLONE INJ 125 MG/2 ML SDV IV ONE (19:08)
--- NOTE | 2017-03-27 19:15 | RADIOLOGY REPORT (SQ) ---
EXAM DESCRIPTION: CHEST SINGLE VIEW COMPLETED DATE/TIME: 03/27/2017 7:06 pm REASON FOR STUDY: SOB COMPARISON: 03/27/2016. NUMBER OF VIEWS: One view. TECHNIQUE: Single frontal radiographic view of the chest acquired. LIMITATIONS: None. FINDINGS: LUNGS AND PLEURA: No opacities, masses or pneumothorax. No pleural effusion. Attenuated bl ood vessels and flattened lacy-diaphragms. MEDIASTINUM AND HILAR STRUCTURES: No masses. Contour normal. HEART AND VASCULAR STRUCTURES: Heart normal in size. Normal vasculature. BONES: No acute findings. Thoracic scoliosis. HARDWARE: None in the chest. OTHER: No other significant finding. IMPRESSION: COPD. NO ACUTE RADIOGRAPHIC FINDING IN THE CHEST. TECHNICAL DOCUMENTATION: JOB ID: [id number] [employer]- All Rights Reserved
[2017-03-27] MEDS ORDERED: AZITHROMYCIN INJ 500 MG VIAL IV ONE (19:19)
[2017-03-27 19:29] LABS: ABSOLUTE BASOPHILS # (AUTO) 0.1 10^3/uL (0.0-0.2); ABSOLUTE EOSINOPHILS # (AUTO) 0.1 10^3/uL (0.0-0.6); ABSOLUTE LYMPHOCYTES (AUTO) 0.8 10^3/uL (0.5-4.7); ABSOLUTE MONOCYTES (AUTO) 0.5 10^3/uL (0.1-1.4); ABSOLUTE NEUT (AUTO) 4.2 10^3/uL (1.7-8.2); BASOPHILS % (AUTO) 1.1 % (0-2); HEMATOCRIT 34.8 % (36.0-47.0); HEMOGLOBIN 10.9 g/dL (12.0-15.5); LYMPHOCYTES % (AUTO) 14.5 % (13-45); MEAN CORPUSCULAR HEMOGLOBIN 26.4 pg (27.0-33.4); MEAN CORPUSCULAR HGB CONC 31.2 g/dL (32.0-36.0); MEAN CORPUSCULAR VOLUME 85 fl (80-97); MONOCYTES % (AUTO) 8.6 % (3-13); PLATELET COUNT 188 10^3/uL (150-450); RED BLOOD COUNT 4.12 10^6/uL (3.72-5.28); RED CELL DISTRIBUTION WIDTH 21.9 % (11.5-14.0); SEGMENTED NEUTROPHILS % (AUTO) 74.8 % (42-78); TOTAL CELLS COUNTED % (AUTO) 100 %; VENOUS BLOOD BASE EXCESS -1.6 mmol/L; VENOUS BLOOD HCO3 26.7 mmol/L (20-32); VENOUS BLOOD PCO2 63.3 mmHg (35-63); VENOUS BLOOD PH 7.24 (7.30-7.42); WHITE BLOOD COUNT 5.6 10^3/uL (4.0-10.5)
[2017-03-27] MEDS ORDERED: CEFTRIAXONE 1 GM/D5W RTU 1 GM/50 ML RTUPB IV ONE ×2 (19:30→23:00)
[2017-03-27 19:40] LABS: INTERNATIONAL RATION (INR) 1.23; PROTHROMBIN TIME 16.3 SEC (11.4-15.4)
[2017-03-27 19:58] LABS: ALANINE AMINOTRANSFERASE 10 U/L (9-52); ALKALINE PHOSPHATASE 70 U/L (38-126); ANION GAP 11 (5-19); ASPARTATE AMINO TRANSFERASE 27 U/L (14-36); BILIRUBIN,DIRECT 0.3 mg/dL (0.0-0.4); BILIRUBIN,TOTAL 0.3 mg/dL (0.2-1.3); BLOOD UREA NITROGEN 25 mg/dL (7-20); CALCIUM 9.3 mg/dL (8.4-10.2); CARBON DIOXIDE 27 mmol/L (22-30); CHLORIDE 109 mmol/L (98-107); GLUCOSE 124 mg/dL (75-110); POTASSIUM 3.3 mmol/L (3.6-5.0); SODIUM 147.2 mmol/L (137-145); TOTAL PROTEIN 6.8 g/dL (6.3-8.2)
[2017-03-27 20:07] LABS: APPEARANCE,URINE CLEAR; BILIRUBIN,URINE NEGATIVE (NEGATIVE); COLOR,URINE YELLOW; GLUCOSE, URINE NEGATIVE (NEGATIVE); KETONES,URINE 20 mg/dL (NEGATIVE); LEUKOCYTE ESTERASE,URINE NEGATIVE (NEGATIVE); NITRITE,URINE NEGATIVE (NEGATIVE); PROTEIN,URINE NEGATIVE (NEGATIVE); URINE SPECIFIC GRAVITY 1.029; UROBILINOGEN,URINE NEGATIVE mg/dL (<2.0)
[2017-03-27 20:18] LABS: A TYPE INFLUENZA AG NEGATIVE (NEGATIVE); B INFLUENZA AG NEGATIVE (NEGATIVE)
[2017-03-27] MEDS ORDERED: POTASSI CL 20 MEQ/50 ML RIDER 20 MEQ/50 ML RTUPB IV SCH (21:25)
[2017-03-27] MEDS ORDERED: WATER IV ONE ×2 (21:30)
[2017-03-27] MEDS ORDERED: CEFTRIAXONE SODIUM IV ONE ×2 (21:30)
[2017-03-27] MEDS ORDERED: DEXTROSE 5% IV ONE ×2 (21:30)
[2017-03-27] MEDS ORDERED: NORMAL SALINE 1000 ML 1,000 ML IV PRN (22:02)
[2017-03-27] MEDS ORDERED: GLUCAGON,HUMAN RECOMB 1 MG INJ SUBCUT PRN (22:04)
[2017-03-27] MEDS ORDERED: ACETAMINOPHEN 325 MG TABLET PO PRN (22:04)
[2017-03-27] MEDS ORDERED: DEXTROSE 40% GEL 15 GM TUBE PO PRN ×4 (22:04→22:09)
[2017-03-27] MEDS ORDERED: DEXTROSE 50%-WATER 25 GM/50 ML DISP.SYRIN IV PRN ×4 (22:04→22:09)
[2017-03-27] MEDS ORDERED: LEVALBUTEROL HCL NEB 1.25 MG/3 ML AMPUL NEB PRN (22:04)
[2017-03-27] MEDS ORDERED: INSULIN LISPRO 100 UNIT/ML 3 ML VIAL SUBCUT PRN (22:09)
[2017-03-27] MEDS ORDERED: GLUCAGON,HUMAN RECOMB 1 MG INJ IM PRN (22:09)
[2017-03-27 22:23] LABS: ARTERIAL BLOOD BASE EXCESS -4.7 mmol/L; ARTERIAL BLOOD FIO2 28%; ARTERIAL BLOOD H2CO3 1.67 mmol/L (1.05-1.35); ARTERIAL BLOOD HCO3 22.9 mmol/L (20-26); ARTERIAL BLOOD O2 SATURATION 94.1 % (94-98); ARTERIAL BLOOD PCO2 55.4 mmHg (35-45); ARTERIAL BLOOD PH 7.24 (7.35-7.45); ARTERIAL BLOOD PO2 83.1 mmHg (80-100); ARTERIAL BLOOD TOTAL CO2 24.6 mmol/L (21-25)
[2017-03-27] MEDS: METHYLPREDNISOLONE INJ 125 MG/2 ML SDV IV SCH (23:54)
[2017-03-28] MEDS ORDERED: CEFTRIAXONE INJ 1000 MG VIAL ONE (00:48)
[2017-03-28 01:18] LABS: ARTERIAL BLOOD BASE EXCESS -3.6 mmol/L; ARTERIAL BLOOD H2CO3 1.82 mmol/L (1.05-1.35); ARTERIAL BLOOD HCO3 24.5 mmol/L (20-26); ARTERIAL BLOOD O2 SATURATION 91.2 % (94-98); ARTERIAL BLOOD PCO2 60.6 mmHg (35-45); ARTERIAL BLOOD PH 7.22 (7.35-7.45); ARTERIAL BLOOD PO2 72.5 mmHg (80-100); ARTERIAL BLOOD TOTAL CO2 26.3 mmol/L (21-25)
[2017-03-28 01:19] LABS: ARTERIAL BLOOD FIO2 28%
[2017-03-28] MEDS ORDERED: ETOMIDATE INJ/PF 20 MG/10 ML SDV IV ONE ×2 (02:12→02:36)
[2017-03-28] MEDS ORDERED: PHARMACY COMMUNICATION ORDER MC NR (02:15)
[2017-03-28] MEDS ORDERED: KETAMINE HCL INJ 500 MG/10 ML VIAL ONE (02:39)
[2017-03-28] MEDS ORDERED: ACETAMINOPHEN 325 MG TABLET NG PRN (02:47)
[2017-03-28] MEDS ORDERED: DEXTROSE 40% GEL 15 GM TUBE NG PRN ×2 (02:48→02:49)
[2017-03-28] MEDS ORDERED: MIDAZOLAM 2 MG/2 ML INJ ONE (03:41)
[2017-03-28] MEDS ORDERED: MIDAZOLAM HCL 100 ML IV PRN (03:46)
[2017-03-28] MEDS ORDERED: MIDAZOLAM HCL 100 ML IV ONE (03:51)
[2017-03-28] MEDS ORDERED: MIDAZOLAM 2 MG/2 ML INJ IV ONE (04:00)
[2017-03-28] MEDS ORDERED: KETAMINE HCL 500 MG in NORMAL SALINE 500 ML IV PRN (04:06)
[2017-03-28] MEDS ORDERED: KETAMINE HCL INJ 500 MG/10 ML VIAL IV PRN (04:08)
--- NOTE | 2017-03-28 04:09 | RADIOLOGY REPORT (SQ) ---
EXAM DESCRIPTION: CHEST SINGLE VIEW CLINICAL HISTORY: TUBE PLACEMENT COMPARISON: 03/27/2017 FINDINGS: Single frontal view of the chest. NG tube with tip below the diaphragm. Endotracheal tube with tip 3 cm above the gal. Atherosclerotic calcification aortic arch. No consolidation, pneumothorax, or pleural effusion. No displaced rib fractures identified. Upper abdominal soft tissues are unremarkable. IMPRESSION: 1. Endotracheal tube and NG tube in appropriate radiographic position.
[2017-03-28 04:29] LABS: ARTERIAL BLOOD BASE EXCESS -3.3 mmol/L; ARTERIAL BLOOD H2CO3 1.71 mmol/L (1.05-1.35); ARTERIAL BLOOD HCO3 24.3 mmol/L (20-26); ARTERIAL BLOOD O2 SATURATION 98.9 % (94-98); ARTERIAL BLOOD PCO2 56.9 mmHg (35-45); ARTERIAL BLOOD PH 7.25 (7.35-7.45); ARTERIAL BLOOD PO2 172.4 mmHg (80-100)
[2017-03-28] MEDS ORDERED: NORMAL SALINE 1000 ML 1,000 ML IV ONE (04:30)
[2017-03-28 05:19] LABS: ABSOLUTE LYMPHOCYTES (AUTO) 0.4 10^3/uL (0.5-4.7); ABSOLUTE NEUT (AUTO) 3.1 10^3/uL (1.7-8.2); BASOPHILS % (AUTO) 0.7 % (0-2); EOSINOPHILS % (AUTO) 0.1 % (0-6); HEMATOCRIT 27.5 % (36.0-47.0); LYMPHOCYTES % (AUTO) 11.6 % (13-45); MEAN CORPUSCULAR HEMOGLOBIN 26.9 pg (27.0-33.4); MEAN CORPUSCULAR HGB CONC 31.6 g/dL (32.0-36.0); MEAN CORPUSCULAR VOLUME 85 fl (80-97); MONOCYTES % (AUTO) 0.8 % (3-13); PLATELET COUNT 144 10^3/uL (150-450); RED BLOOD COUNT 3.24 10^6/uL (3.72-5.28); RED CELL DISTRIBUTION WIDTH 21.7 % (11.5-14.0); SEGMENTED NEUTROPHILS % (AUTO) 86.8 % (42-78); TOTAL CELLS COUNTED % (AUTO) 100 %; WHITE BLOOD COUNT 3.5 10^3/uL (4.0-10.5)
[2017-03-28 05:21] LABS: HEMOGLOBIN 8.7 g/dL (12.0-15.5)
[2017-03-28 05:31] LABS: ANION GAP 8 (5-19); BLOOD UREA NITROGEN 20 mg/dL (7-20); CALCIUM 8.7 mg/dL (8.4-10.2); CARBON DIOXIDE 22 mmol/L (22-30); CHLORIDE 118 mmol/L (98-107); GLUCOSE 116 mg/dL (75-110); POTASSIUM 3.8 mmol/L (3.6-5.0); SODIUM 148.2 mmol/L (137-145)
[2017-03-28] MEDS ORDERED: LANSOPRAZOLE 15 MG TAB.RAP.DR PO SCH (06:00)
[2017-03-28] MEDS ORDERED: POTASSI CL 20 MEQ/50 ML RIDER 20 MEQ/50 ML RTUPB IV ONE (06:12)
[2017-03-28] MEDS: LANSOPRAZOLE 15 MG TAB.RAP.DR NG SCH ×2 (06:19→17:21)
[2017-03-28] MEDS: HEPARIN SOD (PORCINE) 5,000 UNIT/ML 1 ML SYRINGE SUBCUT SCH ×3 (06:21→21:40)
[2017-03-28] MEDS: METHYLPREDNISOLONE INJ 125 MG/2 ML SDV IV SCH ×3 (06:21→17:21)
[2017-03-28] MEDS ORDERED: ACETAMINOPHEN SOLN 325 MG/10.15 ML UDCUP NG PRN (07:25)
[2017-03-28] MEDS ORDERED: LEVALBUTEROL HCL NEB 1.25 MG/3 ML AMPUL NEB PRN (07:30)
[2017-03-28 07:41] LABS: ABSOLUTE RETICS # 0.055 10^6/uL (0.028-0.122); RETICULOCYTE COUNT (AUTO) 1.69 % (0.66-2.85)
[2017-03-28] MEDS: IPRATROPIUM/ALBUTEROL 0.5-2.5 MG/3 ML AMPUL NEB SCH ×4 (07:44→20:34)
--- NOTE | 2017-03-28 07:50 | PDOC H&P ---
History of Present Illness Admission Date/PCP: 03/27/17 21:52 History of Present Illness: ADRIAN BOWLES is a 61 year old female with past medical history of COPD, GERD, and iron deficiency anemia who presents to the emergency department via EMS. I am unable to obtain any history from this patient as she is lethargic at the time that I see her. Patient was found to be hypercapnic and placed on BiPAP. Attempts were made to BiPAP patient and improve her acidotic status as well as her mentation. Patient's mentation mildly improved and waxed and waned throughout the course of her stay in the emergency department. Patient's ABGs however showed decline despite aggressive adjustment of her BiPAP and patient required intubation. I am unable to able unable to obtain any further history from her at this time. Any listed history is gleaned from historical contacts with patient. Patient's medications are currently undergoing reconciliation. Current list is automatically generated by [employer] and does not reflect an accurate description of her medications. Due to the urgent/emergent nature of her condition, she is admitted without a full list. Past Medical History Cardiac Medical History: Reports: Congestive Heart Failure, Coronary Artery Disease, Hyperlipidema Pulmonary Medical History: Reports: Bronchitis, Chronic Obstructive Pulmonary Disease (COPD) Neurological Medical History: Reports: Migraine GI Medical History: Reports: Gastroesophageal Reflux Disease Musculoskeltal Medical History: Reports: Arthritis Psychiatric Medical History: Reports: Depression Hematology: Reports: Anemia Denies: Sickle Cell Disease Past Surgical History Past Surgical History: Reports: Adenoidectomy, Cholecystectomy, Orthopedic Surgery - left total hip, Tonsillectomy Denies: Amputation Social History Smoking Status: Unknown if Ever Smoked Frequency of Alcohol Use: None Hx Recreational Drug Use: No Drugs: None Hx Prescription Drug Abuse: Yes - PER MED RECORDS - Advance Directive Resuscitation Status: Full Code Surrogate healthcare decision maker:: Unable to obtain Family History Family History: Other - Unable to obtain Parental Family History Reviewed: No Children Family History Reviewed: No Sibling(s) Family History Reviewed.: No Medication/Allergy Allergies/Adverse Reactions: Penicillins Allergy (Mild, Verified 03/20/14 21:10) Review of Systems ROS unobtainable: Due to endotracheal tube, Due to mental status Physical Exam Vital Signs: Temp Pulse Resp BP Pulse Ox 100.1 F 18 100/60 100 03/27/17 19:48 03/28/17 05:45 03/28/17 05:45 03/28/17 05:45 General appearance: PRESENT: mild distress, well-developed, well-nourished Head exam: PRESENT: atraumatic, normocephalic Eye exam: PRESENT: conjunctiva pale, EOMI, PERRLA. ABSENT: scleral icterus Ear exam: PRESENT: normal external ear exam Mouth exam: PRESENT: dry mucosa, tongue midline Neck exam: ABSENT: JVD, lymphadenopathy, thyromegaly, tracheal deviation Respiratory exam: PRESENT: accessory muscle use, rhonchi, symmetrical, unlabored , wheezes. ABSENT: rales, tachypnea Cardiovascular exam: PRESENT: RRR, +S1, +S2, systolic murmur. ABSENT: diastolic murmur, rubs Pulses: PRESENT: normal dorsalis pedis pul Vascular exam: PRESENT: normal capillary refill GI/Abdominal exam: PRESENT: hypoactive bowel sounds, soft. ABSENT: distended, guarding, mass, organolmegaly, rebound, rigid, tenderness Rectal exam: PRESENT: deferred Extremities exam: PRESENT: clubbing. ABSENT: calf tenderness, pedal edema Neurological exam: PRESENT: altered Skin exam: PRESENT: dry, intact, warm. ABSENT: cyanosis, rash Results Laboratory Results: 03/28/17 05:07 03/28/17 05:07 03/27/17 03/27/17 03/28/17 22:04 23:50 01:08 WBC RBC Hgb Hct MCV MCH MCHC RDW Plt Count Seg Neutrophils % Lymphocytes % Monocytes % Eosinophils % Basophils % Absolute Neutrophils Absolute Lymphocytes Absolute Monocytes Absolute Eosinophils Absolute Basophils Carbonic Acid 1.67 H Cancelled 1.82 H HCO3/H2CO3 Ratio 13:1 Cancelled 13:1 ABG pH 7.24 L Cancelled 7.22 L ABG pCO2 55.4 H Cancelled 60.6 H ABG pO2 83.1 Cancelled 72.5 L ABG HCO3 22.9 Cancelled 24.5 ABG O2 Saturation 94.1 Cancelled 91.2 L ABG Base Excess -4.7 Cancelled -3.6 FiO2 28% Cancelled 28% Sodium Potassium Chloride Carbon Dioxide Anion Gap BUN Creatinine Est GFR ( Amer) Est GFR (Non-Af Amer) Glucose Calcium 03/28/17 03/28/17 03/28/17 04:11 05:07 05:07 WBC 3.5 L RBC 3.24 L Hgb 8.7 L D Hct 27.5 L MCV 85 MCH 26.9 L MCHC 31.6 L RDW 21.7 H Plt Count 144 L Seg Neutrophils % 86.8 H Lymphocytes % 11.6 L Monocytes % 0.8 L Eosinophils % 0.1 Basophils % 0.7 Absolute Neutrophils 3.1 Absolute Lymphocytes 0.4 L Absolute Monocytes 0.0 L Absolute Eosinophils 0.0 Absolute Basophils 0.0 Carbonic Acid 1.71 H HCO3/H2CO3 Ratio 14:1 ABG pH 7.25 L ABG pCO2 56.9 H ABG pO2 172.4 H ABG HCO3 24.3 ABG O2 Saturation 98.9 H ABG Base Excess -3.3 FiO2 50 % Sodium 148.2 H Potassium 3.8 Chloride 118 H Carbon Dioxide 22 Anion Gap 8 BUN 20 Creatinine 0.37 L Est GFR ( Amer) > 60 Est GFR (Non-Af Amer) > 60 Glucose 116 H Calcium 8.7 03/27/17 03/28/17 22:45 05:07 Troponin I < 0.012 < 0.012 Impressions: Chest X-Ray 03/28/17 00:00 IMPRESSION: 1. Endotracheal tube and NG tube in appropriate radiographic position. Assessment & Plan - Diagnosis (1) Obstructive chronic bronchitis with exacerbation Is this a current diagnosis for this admission?: Yes Plan: Place patient on scheduled nebulized treatments and re-evaluate for improvement. PRN Xopenex Place patient on IV Solu-Medrol Obtain sputum culture (2) Pneumonia Qualifiers: Pneumonia type: due to unspecified organism Laterality: unspecified laterality Lung location: unspecified part of lung Qualified Code(s): J18.9 - Pneumonia, unspecified organism Is this a current diagnosis for this admission?: Yes Plan: Patient has history of MRSA pneumonia. Place patient on vancomycin, azithromycin, and Invanz. Obtain sputum culture. (3) Sepsis Qualifiers: Sepsis type: sepsis due to unspecified organism Qualified Code(s): A41.9 - Sepsis, unspecified organism Is this a current diagnosis for this admission?: Yes Plan: Patient meets criteria for sepsis on admission She has been bolus 20/kg Secondary to underlying pneumonia (4) Acute and chronic respiratory failure ([id number]) Qualifiers: Respiratory failure complication: hypoxia and hypercapnia Qualified Code(s) : J96.21 - Acute and chronic respiratory failure with hypoxia; J96.22 - Acute and chronic respiratory failure with hypercapnia; J96.22 - Acute and chronic respiratory failure with hypercapnia; J96.22 - Acute and chronic respiratory failure with hypercapnia Is this a current diagnosis for this admission?: Yes Plan: Patient currently ventilated will be admitted to the ICU consult pulmonary medicine for ventilator management (5) Acute encephalopathy Is this a current diagnosis for this admission?: Yes Plan: Likely secondary to sepsis and CO2 narcosis (6) Anemia Qualifiers: Anemia type: iron deficiency Iron deficiency anemia type: unspecified iron deficiency Qualified Code(s): D50.9 - Iron deficiency anemia, unspecified Is this a current diagnosis for this admission?: Yes Plan: History of mind iron deficiency anemia. Will send anemia battery (7) History of MRSA infection of lungs Is this a current diagnosis for this admission?: Yes - Time Time Spent: Greater than 70 Minutes Critical Time spent with patient: 35 or more minutes Medications reviewed and adjusted accordingly: Yes - Inpatient Certification Based on my medical assessment, after consideration of the patient's comorbidities, presenting symptoms, or acuity I expect that the services needed warrant INPATIENT care.: Yes I certify that my determination is in accordance with my understanding of Medicare's requirements for reasonable and necessary INPATIENT services [42 CFR 412.3e].: Yes Medical Necessity: Need For IV Fluids, Need For Continuous Telemetry Monitoring , Need for IV Antibiotics Post Hospital Care: D/C Dentist Attendant Documentation
[2017-03-28] MEDS ORDERED: VANCOMYCIN HCL 0 MG in DEXTROSE 5%-WATER 250 ML IV NR (08:00)
[2017-03-28 08:07] LABS: IRON(TIBC) 41.7 ug/dL (37-170)
--- NOTE | 2017-03-28 08:11 | EKG REPORT ---
SEVERITY:- ABNORMAL ECG - SINUS RHYTHM VENTRICULAR PREMATURE COMPLEX FIRST DEGREE AV BLOCK LEFT VENTRICULAR HYPERTROPHY : Confirmed by: Gomez Joseph MD 28-Mar-2017 08:09:23
[2017-03-28] MEDS: NORMAL SALINE 1000 ML 1,000 ML IV PRN ×2 (08:26→16:59)
[2017-03-28] MEDS: PROPOFOL 100 ML IV PRN ×2 (09:08→22:43)
[2017-03-28 09:51] LABS: ARTERIAL BLOOD BASE EXCESS -5.8 mmol/L; ARTERIAL BLOOD FIO2 35%; ARTERIAL BLOOD H2CO3 1.53 mmol/L (1.05-1.35); ARTERIAL BLOOD HCO3 21.5 mmol/L (20-26); ARTERIAL BLOOD O2 SATURATION 95.3 % (94-98); ARTERIAL BLOOD PCO2 50.9 mmHg (35-45); ARTERIAL BLOOD PH 7.24 (7.35-7.45); ARTERIAL BLOOD PO2 89.1 mmHg (80-100)
[2017-03-28] MEDS ORDERED: GUAIFENESIN 600 MG TABLET.SA PO SCH (10:00)
[2017-03-28] MEDS ORDERED: VANCOMYCIN HCL 1,250 MG in DEXTROSE 5%-WATER 250 ML IV SCH (10:00)
[2017-03-28] MEDS ORDERED: VANCOMYCIN HCL 1,000 MG in DEXTROSE 5%-WATER 250 ML IV ONE (12:00)
[2017-03-28] MEDS: ERTAPENEM SODIUM 1 GM in NORMAL SALINE 50 ML IV SCH (14:18)
[2017-03-28] MEDS: GUAIFENESIN SYRP 200 MG/10 ML UDC NG SCH ×3 (15:10→21:29)
[2017-03-28] MEDS: AZITHROMYCIN 500 MG in DEXTROSE 5%-WATER 250 ML IV SCH (17:22)
--- NOTE | 2017-03-28 17:43 | PDOC CONSULTATION ---
Consultation Consult Date: 03/28/17 Attending physician:: NATASHA MONTOYA Consult reason:: acute/chronic resp failure History of Present Illness Admission Date/PCP: 03/27/17 21:52 NATASHA MONTOYA MD History of Present Illness: ADRIAN BOWLES is a 61 year old female with past medical history of COPD, GERD, and iron deficiency anemia who presents to the emergency department via EMS.Patient has a long history of repeated admissions for exacerbations of COPD and is well-known to [facility] She present to the hospital short of breath was given a trial of noninvasive positive pressure ventilation as she was acidotic and had altered mental status is formal ventilation had minimal impact she was subsequently intubated he presents now in the ICU on mechanical ventilation sedated and intubated Past Medical History Cardiac Medical History: Reports: Congestive Heart Failure, Coronary Artery Disease, Hyperlipidema Pulmonary Medical History: Reports: Bronchitis, Chronic Obstructive Pulmonary Disease (COPD) EENT Medical History: Denies: Ears, Nose Neurological Medical History: Reports: Migraine Denies: Multiple Sclerosis Endocrine Medical History: Denies: Gestational Diabetes, Obesity Malignancy Medical History: Reports: None GI Medical History: Reports: Gastroesophageal Reflux Disease Denies: Crohn's Disease, Ulcerative Colitis Musculoskeltal Medical History: Reports: Arthritis Skin Medical History: Denies: Psoriasis Psychiatric Medical History: Reports: Depression, Tobacco Dependency Traumatic Medical History: Denies: Traumatic Brain Injury Hematology: Reports: Anemia Denies: Sickle Cell Disease, Bleeding Tendencies Infectious Medical History: Denies: Hepatitis B, Hepatitis C Past Surgical History Past Surgical History: Reports: Adenoidectomy, Cholecystectomy, Orthopedic Surgery - left total hip, Tonsillectomy Denies: Amputation Social History Information Source: [facility] Records Lives with: Family Smoking Status: Current Every Day Smoker Passive smoke exposure as: Both Frequency of Alcohol Use: None Hx Recreational Drug Use: No Drugs: None Hx Prescription Drug Abuse: Yes - PER MED RECORDS Do you have pets?: No Have you had any respiratory illnesses as a child?: No Have you been exposed to any sick contacts recently?: No Have you had any recent respiratory illnesses?: No Have you travelled outside of [place] in the past 12 months?: No - Advance Directive Resuscitation Status: Full Code Family History Family History: Other - Unable to obtain Parental Family History Reviewed: No Children Family History Reviewed: No Sibling(s) Family History Reviewed.: No Medication/Allergy Home Medications: Albuterol Sulfate [Ventolin 0.083% Neb 2.5 mg/3 mL Ampul] 3 ml NEB RTTID Hydrocodone Bitartrate [Hysingla ER] 20 mg PO DAILY 03/28/17 Hydrocodone/Acetaminophen [Cuttyhunk 7.5-325 mg Tablet] 1 tab PO Q8HP PRN 03/28/17 Montelukast Sodium [Singulair 10 mg Tablet] 10 mg PO QPM 03/28/17 Oxybutynin Chloride [Ditropan 5 mg Tablet] 5 mg PO BID 03/28/17 Allergies/Adverse Reactions: Penicillins Allergy (Mild, Verified 03/20/14 21:10) Review of Systems ROS unobtainable: Due to endotracheal tube Physical Exam Vital Signs: Temp Pulse Resp BP Pulse Ox 100.1 F 57 L 15 96/53 L 96 03/27/17 19:48 03/28/17 07:44 03/28/17 09:46 03/28/17 09:46 03/28/17 09:46 Intake & Output 03/27/17 03/28/17 03/29/17 06:59 06:59 06:59 Output Total 150 Balance -150 Weight 50 kg General appearance: PRESENT: no acute distress, disheveled, thin. ABSENT: cooperative, mild distress, morbidly obese, obese, severe distress Head exam: PRESENT: atraumatic, normocephalic Eye exam: PRESENT: conjunctiva pale. ABSENT: conjunctival injection, conjunctiva pink, nystagmus, periorbital swelling, scleral icterus Mouth exam: PRESENT: dry mucosa, neck supple, tongue midline, other - ET tube in place. ABSENT: laceration, moist Teeth exam: PRESENT: poor dentation Neck exam: ABSENT: carotid bruit, JVD, lymphadenopathy, thyromegaly, tracheal deviation, tracheostomy Respiratory exam: PRESENT: decreased breath sounds, prolonged expiratory phas, rhonchi, symmetrical, unlabored, wheezes. ABSENT: accessory muscle use, chest wall tenderness, clear to auscultation rohan, crackles, rales, retraction, stridor , tachypnea Cardiovascular exam: PRESENT: RRR, +S1, +S2 Pulses: PRESENT: normal radial pulses GI/Abdominal exam: PRESENT: diminished bowel sounds, soft Gentrourinary exam: PRESENT: indwelling catheter Extremities exam: ABSENT: clubbing, full ROM, joint swelling Musculoskeletal exam: ABSENT: ambulatory, deformity, dislocation, full ROM Neurological exam: ABSENT: alert, awake Skin exam: PRESENT: dry, warm Results Laboratory Results: 03/28/17 05:07 03/28/17 05:07 03/27/17 03/27/17 03/28/17 22:04 23:50 01:08 WBC RBC Hgb Hct MCV MCH MCHC RDW Plt Count Seg Neutrophils % Lymphocytes % Monocytes % Eosinophils % Basophils % Absolute Neutrophils Absolute Lymphocytes Absolute Monocytes Absolute Eosinophils Absolute Basophils Retic Count (auto) Absolute Retic Carbonic Acid 1.67 H Cancelled 1.82 H HCO3/H2CO3 Ratio 13:1 Cancelled 13:1 ABG pH 7.24 L Cancelled 7.22 L ABG pCO2 55.4 H Cancelled 60.6 H ABG pO2 83.1 Cancelled 72.5 L ABG HCO3 22.9 Cancelled 24.5 ABG O2 Saturation 94.1 Cancelled 91.2 L ABG Base Excess -4.7 Cancelled -3.6 FiO2 28% Cancelled 28% Sodium Potassium Chloride Carbon Dioxide Anion Gap BUN Creatinine Est GFR ( Amer) Est GFR (Non-Af Amer) Glucose Calcium Iron TIBC % Saturation Ferritin Vitamin B12 Folate 03/28/17 03/28/17 03/28/17 04:11 05:07 05:07 WBC 3.5 L RBC 3.24 L Hgb 8.7 L D Hct 27.5 L MCV 85 MCH 26.9 L MCHC 31.6 L RDW 21.7 H Plt Count 144 L Seg Neutrophils % 86.8 H Lymphocytes % 11.6 L Monocytes % 0.8 L Eosinophils % 0.1 Basophils % 0.7 Absolute Neutrophils 3.1 Absolute Lymphocytes 0.4 L Absolute Monocytes 0.0 L Absolute Eosinophils 0.0 Absolute Basophils 0.0 Retic Count (auto) Absolute Retic Carbonic Acid 1.71 H HCO3/H2CO3 Ratio 14:1 ABG pH 7.25 L ABG pCO2 56.9 H ABG pO2 172.4 H ABG HCO3 24.3 ABG O2 Saturation 98.9 H ABG Base Excess -3.3 FiO2 50 % Sodium 148.2 H Potassium 3.8 Chloride 118 H Carbon Dioxide 22 Anion Gap 8 BUN 20 Creatinine 0.37 L Est GFR ( Amer) > 60 Est GFR (Non-Af Amer) > 60 Glucose 116 H Calcium 8.7 Iron TIBC % Saturation Ferritin Vitamin B12 Folate 03/28/17 03/28/17 03/28/17 05:07 05:07 06:49 WBC RBC Hgb Hct MCV MCH MCHC RDW Plt Count Seg Neutrophils % Lymphocytes % Monocytes % Eosinophils % Basophils % Absolute Neutrophils Absolute Lymphocytes Absolute Monocytes Absolute Eosinophils Absolute Basophils Retic Count (auto) 1.69 Absolute Retic 0.055 Carbonic Acid Cancelled HCO3/H2CO3 Ratio Cancelled ABG pH Cancelled ABG pCO2 Cancelled ABG pO2 Cancelled ABG HCO3 Cancelled ABG O2 Saturation Cancelled ABG Base Excess Cancelled FiO2 Cancelled Sodium Potassium Chloride Carbon Dioxide Anion Gap BUN Creatinine Est GFR ( Amer) Est GFR (Non-Af Amer) Glucose Calcium Iron 41.7 TIBC 292 % Saturation 14 Ferritin 33.50 Vitamin B12 370.0 Folate 15.80 03/28/17 09:30 WBC RBC Hgb Hct MCV MCH MCHC RDW Plt Count Seg Neutrophils % Lymphocytes % Monocytes % Eosinophils % Basophils % Absolute Neutrophils Absolute Lymphocytes Absolute Monocytes Absolute Eosinophils Absolute Basophils Retic Count (auto) Absolute Retic Carbonic Acid 1.53 H HCO3/H2CO3 Ratio 14:1 ABG pH 7.24 L ABG pCO2 50.9 H ABG pO2 89.1 ABG HCO3 21.5 ABG O2 Saturation 95.3 ABG Base Excess -5.8 FiO2 35% Sodium Potassium Chloride Carbon Dioxide Anion Gap BUN Creatinine Est GFR ( Amer) Est GFR (Non-Af Amer) Glucose Calcium Iron TIBC % Saturation Ferritin Vitamin B12 Folate 03/27/17 03/28/17 22:45 05:07 Troponin I < 0.012 < 0.012 Impressions: Chest X-Ray 03/28/17 00:00 IMPRESSION: 1. Endotracheal tube and NG tube in appropriate radiographic position. Assessment & Plan - Diagnosis (1) Pneumonia Qualifiers: Pneumonia type: due to unspecified organism Laterality: unspecified laterality Lung location: unspecified part of lung Qualified Code(s): J18.9 - Pneumonia, unspecified organism Is this a current diagnosis for this admission?: Yes Plan: Radiographic evidence consistent with gas diagnosis no cultures positive thus (2) Acute and chronic respiratory failure ([id number]) Qualifiers: Respiratory failure complication: hypoxia and hypercapnia Qualified Code(s) : J96.21 - Acute and chronic respiratory failure with hypoxia; J96.22 - Acute and chronic respiratory failure with hypercapnia; J96.22 - Acute and chronic respiratory failure with hypercapnia; J96.22 - Acute and chronic respiratory failure with hypercapnia Is this a current diagnosis for this admission?: Yes Plan: Oxygenate and ventilate to baseline (3) Anemia Qualifiers: Anemia type: iron deficiency Iron deficiency anemia type: unspecified iron deficiency Qualified Code(s): D50.9 - Iron deficiency anemia, unspecified Is this a current diagnosis for this admission?: Yes Plan: Chronic iron deficiency - Time Total Critical Time (Minutes): 50
[2017-03-28] MEDS: VANCOMYCIN HCL 1,000 MG in DEXTROSE 5%-WATER 250 ML IV SCH (21:29)
[2017-03-28] MEDS: MIDAZOLAM HCL 100 ML IV PRN (21:33)
[2017-03-28] MEDS ORDERED: CEFTRIAXONE 1 GM/D5W RTU 1 GM/50 ML RTUPB IV SCH (22:00)
[2017-03-29] MEDS: NORMAL SALINE 1000 ML 1,000 ML IV PRN ×3 (00:09→16:10)
[2017-03-29] MEDS: GUAIFENESIN SYRP 200 MG/10 ML UDC NG SCH ×5 (01:12→22:56)
[2017-03-29] MEDS: METHYLPREDNISOLONE INJ 125 MG/2 ML SDV IV SCH ×5 (05:41→23:34)
[2017-03-29] MEDS: LANSOPRAZOLE 15 MG TAB.RAP.DR NG SCH ×2 (05:44→17:30)
[2017-03-29] MEDS: HEPARIN SOD (PORCINE) 5,000 UNIT/ML 1 ML SYRINGE SUBCUT SCH ×3 (05:50→22:57)
[2017-03-29 06:25] LABS: ARTERIAL BLOOD BASE EXCESS -1.3 mmol/L; ARTERIAL BLOOD FIO2 30%; ARTERIAL BLOOD H2CO3 1.11 mmol/L (1.05-1.35); ARTERIAL BLOOD O2 SATURATION 97.6 % (94-98); ARTERIAL BLOOD PCO2 36.8 mmHg (35-45); ARTERIAL BLOOD PH 7.41 (7.35-7.45); ARTERIAL BLOOD PO2 98.2 mmHg (80-100); ARTERIAL BLOOD TOTAL CO2 24.1 mmol/L (21-25)
[2017-03-29 06:58] LABS: ABSOLUTE LYMPHOCYTES (AUTO) 0.5 10^3/uL (0.5-4.7); ABSOLUTE MONOCYTES (AUTO) 0.1 10^3/uL (0.1-1.4); ABSOLUTE NEUT (AUTO) 4.3 10^3/uL (1.7-8.2); BASOPHILS % (AUTO) 0.2 % (0-2); HEMATOCRIT 27.4 % (36.0-47.0); HEMOGLOBIN 8.7 g/dL (12.0-15.5); LYMPHOCYTES % (AUTO) 10.4 % (13-45); MEAN CORPUSCULAR HEMOGLOBIN 26.6 pg (27.0-33.4); MEAN CORPUSCULAR HGB CONC 31.8 g/dL (32.0-36.0); MEAN CORPUSCULAR VOLUME 84 fl (80-97); MONOCYTES % (AUTO) 1.6 % (3-13); PLATELET COUNT 173 10^3/uL (150-450); RED BLOOD COUNT 3.27 10^6/uL (3.72-5.28); SEGMENTED NEUTROPHILS % (AUTO) 87.8 % (42-78); TOTAL CELLS COUNTED % (AUTO) 100 %; WHITE BLOOD COUNT 4.9 10^3/uL (4.0-10.5)
[2017-03-29 07:12] LABS: ALANINE AMINOTRANSFERASE 14 U/L (9-52); ALBUMIN 2.7 g/dL (3.5-5.0); ALKALINE PHOSPHATASE 50 U/L (38-126); ANION GAP 9 (5-19); ASPARTATE AMINO TRANSFERASE 13 U/L (14-36); BLOOD UREA NITROGEN 16 mg/dL (7-20); CALCIUM 9.5 mg/dL (8.4-10.2); CARBON DIOXIDE 20 mmol/L (22-30); CHLORIDE 113 mmol/L (98-107); GLUCOSE 108 mg/dL (75-110); MAGNESIUM 1.4 mg/dL (1.6-2.3); POTASSIUM 3.5 mmol/L (3.6-5.0); SODIUM 142.1 mmol/L (137-145); TOTAL PROTEIN 4.6 g/dL (6.3-8.2)
--- NOTE | 2017-03-29 07:22 | RADIOLOGY REPORT (SQ) ---
EXAM DESCRIPTION: CHEST SINGLE VIEW CLINICAL HISTORY: acute/chronic resp failure COMPARISON: 03/28/2017 FINDINGS: Single frontal view of the chest. NG tube with tip below the diaphragm. Endotracheal tube with tip near the origin of the right mainstem bronchus. Atherosclerotic calcification aortic arch. No consolidation, pneumothorax, or pleural effusion. No displaced rib fractures identified. Upper abdominal soft tissues are unremarkable. IMPRESSION: 1. Endotracheal tube with tip at the origin the right mainstem bronchus. Recommend retracting 2 to 3 cm. Otherwise stable appearance of the chest. Report called to nurse Carmen at 0618 hours on 03/29/2017
[2017-03-29 07:23] LABS: BILIRUBIN,TOTAL < 0.1 mg/dL (0.2-1.3)
[2017-03-29] MEDS: IPRATROPIUM/ALBUTEROL 0.5-2.5 MG/3 ML AMPUL NEB SCH ×4 (07:49→20:49)
--- NOTE | 2017-03-29 07:59 | EKG REPORT ---
SEVERITY:- ABNORMAL ECG - SINUS BRADYCARDIA VENTRICULAR PREMATURE COMPLEX NONSPECIFIC T ABNORMALITIES, ANT-LAT LEADS : Confirmed by: Gomez Joseph MD 29-Mar-2017 07:58:59
--- NOTE | 2017-03-29 09:59 | RADIOLOGY REPORT (SQ) ---
EXAM DESCRIPTION: CHEST SINGLE VIEW COMPLETED DATE/TIME: 03/29/2017 9:44 am REASON FOR STUDY: chest ET tube placement COMPARISON: Earlier the same day. NUMBER OF VIEWS: One view. TECHNIQUE: Single frontal radiographic image of the chest acquired. LIMITATIONS: None. FINDINGS: LUNGS AND PLEURA: Stable appearance. MEDIASTINUM AND HEART: Stable heart size and mediastinal structures. SUPPORT DEVICES: Repositioning of endotracheal tube with tip between thoracic inlet and gal. BONY STRUCTURES: No acute findings. HARDWARE: None. OTHER: No other significant finding. IMPRESSION: Satisfactory position of endotracheal tube.
[2017-03-29] MEDS: VANCOMYCIN HCL 1,000 MG in DEXTROSE 5%-WATER 250 ML IV SCH ×2 (11:39→22:53)
[2017-03-29] MEDS: PROPOFOL 100 ML IV PRN (11:44)
[2017-03-29] MEDS: MAGNESIUM SULFATE/D5W 1 GM/100 ML RTUPB IV SCH ×3 (12:08→14:06)
[2017-03-29] MEDS: ERTAPENEM SODIUM 1 GM in NORMAL SALINE 50 ML IV SCH (14:00)
--- NOTE | 2017-03-29 14:57 | PDOC PROGRESS REPORT ---
Subjective Progress Note for:: 03/29/17 Subjective:: intubated;sedated Reason For Visit: PNEUMONIA,COPD EXACERBATION,SEPSIS,AMS Physical Exam Vital Signs: Temp Pulse Resp BP Pulse Ox 100.1 F 77 8 L 128/71 H 98 03/27/17 19:48 03/29/17 07:49 03/29/17 08:21 03/29/17 08:21 03/29/17 08:21 Intake & Output 03/28/17 03/29/17 03/30/17 06:59 06:59 06:59 Intake Total 950 Output Total 815 Balance 135 Weight 50 kg General appearance: PRESENT: no acute distress, disheveled, thin, well- developed. ABSENT: cooperative, mild distress, morbidly obese, obese, severe distress Head exam: PRESENT: atraumatic, normocephalic Eye exam: PRESENT: conjunctiva pale. ABSENT: conjunctival injection, conjunctiva pink, nystagmus, periorbital swelling Mouth exam: PRESENT: dry mucosa, neck supple, tongue midline, other - ET tube. ABSENT: laceration, moist Neck exam: ABSENT: carotid bruit, JVD, lymphadenopathy, thyromegaly, tracheal deviation, tracheostomy Respiratory exam: PRESENT: decreased breath sounds, prolonged expiratory phas, rhonchi, symmetrical, unlabored, wheezes. ABSENT: accessory muscle use, chest wall tenderness, clear to auscultation rohan, crackles, rales, retraction, stridor , tachypnea Cardiovascular exam: PRESENT: RRR, +S1, +S2 Pulses: PRESENT: normal radial pulses GI/Abdominal exam: PRESENT: diminished bowel sounds, soft Gentrourinary exam: PRESENT: indwelling catheter Extremities exam: ABSENT: clubbing, full ROM, joint swelling Musculoskeletal exam: ABSENT: ambulatory, deformity, dislocation, full ROM Neurological exam: ABSENT: alert, awake Skin exam: PRESENT: dry, warm Results Laboratory Results: 03/29/17 06:35 03/29/17 06:35 03/29/17 03/29/17 03/29/17 06:05 06:35 06:35 WBC 4.9 RBC 3.27 L Hgb 8.7 L Hct 27.4 L MCV 84 MCH 26.6 L MCHC 31.8 L RDW 22.0 H Plt Count 173 Seg Neutrophils % 87.8 H Lymphocytes % 10.4 L Monocytes % 1.6 L Eosinophils % 0.0 Basophils % 0.2 Absolute Neutrophils 4.3 Absolute Lymphocytes 0.5 Absolute Monocytes 0.1 Absolute Eosinophils 0.0 Absolute Basophils 0.0 Carbonic Acid 1.11 HCO3/H2CO3 Ratio 20:1 ABG pH 7.41 ABG pCO2 36.8 ABG pO2 98.2 ABG HCO3 23.0 ABG O2 Saturation 97.6 ABG Base Excess -1.3 FiO2 30% Sodium 142.1 Potassium 3.5 L Chloride 113 H Carbon Dioxide 20 L Anion Gap 9 BUN 16 Creatinine 0.29 L Est GFR ( Amer) > 60 Est GFR (Non-Af Amer) > 60 Glucose 108 Calcium 9.5 Magnesium 1.4 L Total Bilirubin < 0.1 L AST 13 L ALT 14 Alkaline Phosphatase 50 Total Protein 4.6 L Albumin 2.7 L 03/27/17 03/28/17 22:45 05:07 Troponin I < 0.012 < 0.012 Impressions: Chest X-Ray 03/29/17 08:20 IMPRESSION: Satisfactory position of endotracheal tube. Assessment & Plan - Diagnosis (1) Pneumonia Qualifiers: Pneumonia type: due to unspecified organism Laterality: unspecified laterality Lung location: unspecified part of lung Qualified Code(s): J18.9 - Pneumonia, unspecified organism Is this a current diagnosis for this admission?: Yes Plan: Labs- All tests 24 hr 03/29/17 06:35 WBC 4.9 03/28/17 03:11 Gram Stain - Preliminary Sputum Sputum Culture - Preliminary Gram Positive Cocci Clusters no cultures positive thus (2) Acute and chronic respiratory failure ([id number]) Qualifiers: Respiratory failure complication: hypoxia and hypercapnia Qualified Code(s) : J96.21 - Acute and chronic respiratory failure with hypoxia; J96.22 - Acute and chronic respiratory failure with hypercapnia; J96.22 - Acute and chronic respiratory failure with hypercapnia; J96.22 - Acute and chronic respiratory failure with hypercapnia Is this a current diagnosis for this admission?: Yes Plan: Oxygenate and ventilate to baseline (3) Anemia Qualifiers: Anemia type: iron deficiency Iron deficiency anemia type: unspecified iron deficiency Qualified Code(s): D50.9 - Iron deficiency anemia, unspecified Is this a current diagnosis for this admission?: Yes Plan: unchanged - Time Total Critical Time (Minutes): 40
[2017-03-29 17:11] LABS: ARTERIAL BLOOD BASE EXCESS -1.5 mmol/L; ARTERIAL BLOOD H2CO3 1.11 mmol/L (1.05-1.35); ARTERIAL BLOOD HCO3 22.8 mmol/L (20-26); ARTERIAL BLOOD O2 SATURATION 96.3 % (94-98); ARTERIAL BLOOD PCO2 36.9 mmHg (35-45); ARTERIAL BLOOD PH 7.41 (7.35-7.45); ARTERIAL BLOOD PO2 82.4 mmHg (80-100); ARTERIAL BLOOD TOTAL CO2 23.9 mmol/L (21-25)
[2017-03-29 17:16] LABS: ARTERIAL BLOOD FIO2 28
[2017-03-29] MEDS ORDERED: MIDAZOLAM HCL 50 MG/100 ML RTUINJ IV ONE (17:48)
[2017-03-29] MEDS: MIDAZOLAM HCL 100 ML IV PRN (17:52)
[2017-03-29] MEDS ORDERED: MONTELUKAST SODIUM 10 MG TABLET NG SCH (18:00)
[2017-03-29] MEDS: AZITHROMYCIN 500 MG in DEXTROSE 5%-WATER 250 ML IV SCH (18:08)
--- NOTE | 2017-03-29 20:38 | PDOC PROGRESS REPORT ---
Subjective Progress Note for:: 03/29/17 Subjective:: Continue vent dependent. Increased sedation required. Improved ABG. Managed in ED. Family not present. Reason For Visit: PNEUMONIA,COPD EXACERBATION,SEPSIS,AMS Physical Exam Vital Signs: Temp Pulse Resp BP Pulse Ox 100.1 F 74 17 165/73 H 99 03/27/17 19:48 03/29/17 16:14 03/29/17 16:50 03/29/17 16:50 03/29/17 16:50 Intake & Output 03/28/17 03/29/17 03/30/17 06:59 06:59 06:59 Intake Total 950 1575 Output Total 815 300 Balance 135 1275 Weight 50 kg General appearance: PRESENT: other - Sedated, ill-appearing Mouth exam: PRESENT: dry mucosa, other - ETT in place Respiratory exam: PRESENT: other - Diffusely course breath sounds Cardiovascular exam: PRESENT: RRR. ABSENT: tachycardia GI/Abdominal exam: PRESENT: soft. ABSENT: guarding Neurological exam: PRESENT: other - Sedated, unable to assess Results Laboratory Results: 03/29/17 06:35 03/29/17 06:35 03/28/17 03/29/17 03/29/17 05:07 06:05 06:35 WBC 4.9 RBC 3.27 L Hgb 8.7 L Hct 27.4 L MCV 84 MCH 26.6 L MCHC 31.8 L RDW 22.0 H Plt Count 173 Seg Neutrophils % 87.8 H Lymphocytes % 10.4 L Monocytes % 1.6 L Eosinophils % 0.0 Basophils % 0.2 Absolute Neutrophils 4.3 Absolute Lymphocytes 0.5 Absolute Monocytes 0.1 Absolute Eosinophils 0.0 Absolute Basophils 0.0 Carbonic Acid 1.11 HCO3/H2CO3 Ratio 20:1 ABG pH 7.41 ABG pCO2 36.8 ABG pO2 98.2 ABG HCO3 23.0 ABG O2 Saturation 97.6 ABG Base Excess -1.3 FiO2 30% Sodium Potassium Chloride Carbon Dioxide Anion Gap BUN Creatinine Est GFR ( Amer) Est GFR (Non-Af Amer) Glucose Calcium Magnesium Transferrin 220 Total Bilirubin AST ALT Alkaline Phosphatase Total Protein Albumin TSH Free T4 03/29/17 03/29/17 03/29/17 06:35 06:35 06:35 WBC RBC Hgb Hct MCV MCH MCHC RDW Plt Count Seg Neutrophils % Lymphocytes % Monocytes % Eosinophils % Basophils % Absolute Neutrophils Absolute Lymphocytes Absolute Monocytes Absolute Eosinophils Absolute Basophils Carbonic Acid HCO3/H2CO3 Ratio ABG pH ABG pCO2 ABG pO2 ABG HCO3 ABG O2 Saturation ABG Base Excess FiO2 Sodium 142.1 Potassium 3.5 L Chloride 113 H Carbon Dioxide 20 L Anion Gap 9 BUN 16 Creatinine 0.29 L Est GFR ( Amer) > 60 Est GFR (Non-Af Amer) > 60 Glucose 108 Calcium 9.5 Magnesium 1.4 L Transferrin Total Bilirubin < 0.1 L AST 13 L ALT 14 Alkaline Phosphatase 50 Total Protein 4.6 L Albumin 2.7 L TSH 0.27 L Free T4 0.51 L 03/29/17 16:52 WBC RBC Hgb Hct MCV MCH MCHC RDW Plt Count Seg Neutrophils % Lymphocytes % Monocytes % Eosinophils % Basophils % Absolute Neutrophils Absolute Lymphocytes Absolute Monocytes Absolute Eosinophils Absolute Basophils Carbonic Acid 1.11 HCO3/H2CO3 Ratio 20:1 ABG pH 7.41 ABG pCO2 36.9 ABG pO2 82.4 ABG HCO3 22.8 ABG O2 Saturation 96.3 ABG Base Excess -1.5 FiO2 28 Sodium Potassium Chloride Carbon Dioxide Anion Gap BUN Creatinine Est GFR ( Amer) Est GFR (Non-Af Amer) Glucose Calcium Magnesium Transferrin Total Bilirubin AST ALT Alkaline Phosphatase Total Protein Albumin TSH Free T4 03/27/17 03/28/17 22:45 05:07 Troponin I < 0.012 < 0.012 Impressions: Chest X-Ray 03/29/17 08:20 IMPRESSION: Satisfactory position of endotracheal tube. Assessment & Plan - Diagnosis (1) Pneumonia Qualifiers: Pneumonia type: due to unspecified organism Laterality: unspecified laterality Lung location: unspecified part of lung Qualified Code(s): J18.9 - Pneumonia, unspecified organism Is this a current diagnosis for this admission?: Yes Plan: Known history of MRSA pneumonia. Interestingly admission CXR and subsequent CXR without evidence of consolidation. - Remain vent dependent, improvement in ABG, O2 requirements stable/unchanged - Continue vancomycin, azithromycin, and Invanz for broad and empiric coverage - Continue stress code steroids in this critically ill patient - Sputum culture growing GPC in clusters - Blood cultures no growth at 2 days (2) Obstructive chronic bronchitis with exacerbation Is this a current diagnosis for this admission?: Yes Plan: Known history of COPD - Continue scheduled nebulized treatments - Management per above (3) Sepsis Qualifiers: Sepsis type: sepsis due to unspecified organism Qualified Code(s): A41.9 - Sepsis, unspecified organism Is this a current diagnosis for this admission?: Yes Plan: Meets criteria. Management per above (4) Acute encephalopathy Is this a current diagnosis for this admission?: Yes Plan: Persists, secondary to sepsis - CO2 narcosis improved - Time Time Spent with patient: Less than 15 minutes - Plan Summary Plan Summary: Continue inpatient care for this critically ill patient.
[2017-03-30 05:44] LABS: ABSOLUTE LYMPHOCYTES (AUTO) 0.3 10^3/uL (0.5-4.7); ABSOLUTE MONOCYTES (AUTO) 0.2 10^3/uL (0.1-1.4); ABSOLUTE NEUT (AUTO) 5.4 10^3/uL (1.7-8.2); BASOPHILS % (AUTO) 0.2 % (0-2); HEMATOCRIT 30.2 % (36.0-47.0); HEMOGLOBIN 9.6 g/dL (12.0-15.5); LYMPHOCYTES % (AUTO) 5.4 % (13-45); MEAN CORPUSCULAR HEMOGLOBIN 26.3 pg (27.0-33.4); MEAN CORPUSCULAR HGB CONC 31.8 g/dL (32.0-36.0); MEAN CORPUSCULAR VOLUME 83 fl (80-97); MONOCYTES % (AUTO) 2.9 % (3-13); PLATELET COUNT 191 10^3/uL (150-450); RED BLOOD COUNT 3.65 10^6/uL (3.72-5.28); RED CELL DISTRIBUTION WIDTH 21.7 % (11.5-14.0); SEGMENTED NEUTROPHILS % (AUTO) 91.5 % (42-78); TOTAL CELLS COUNTED % (AUTO) 100 %; WHITE BLOOD COUNT 5.9 10^3/uL (4.0-10.5)
[2017-03-30 05:47] LABS: ALANINE AMINOTRANSFERASE 21 U/L (9-52); ALBUMIN 3.1 g/dL (3.5-5.0); ALKALINE PHOSPHATASE 55 U/L (38-126); ANION GAP 7 (5-19); ASPARTATE AMINO TRANSFERASE 19 U/L (14-36); BILIRUBIN,DIRECT 0.1 mg/dL (0.0-0.4); BILIRUBIN,TOTAL 0.1 mg/dL (0.2-1.3); BLOOD UREA NITROGEN 6 mg/dL (7-20); CALCIUM 9.2 mg/dL (8.4-10.2); CARBON DIOXIDE 23 mmol/L (22-30); CHLORIDE 114 mmol/L (98-107); GLUCOSE 115 mg/dL (75-110); MAGNESIUM 1.8 mg/dL (1.6-2.3); SODIUM 144.3 mmol/L (137-145); TOTAL PROTEIN 5.3 g/dL (6.3-8.2)
[2017-03-30 05:53] LABS: POTASSIUM 2.8 mmol/L (3.6-5.0)
--- NOTE | 2017-03-30 07:17 | RADIOLOGY REPORT (SQ) ---
EXAM DESCRIPTION: CHEST SINGLE VIEW CLINICAL HISTORY: chronic resp failure COMPARISON: 03/29/2017 FINDINGS: Single frontal view of the chest. NG tube with tip below the diaphragm. Endotracheal tube with tip 4 cm above the gal in appropriate position. Atherosclerotic calcification aortic arch. No consolidation, pneumothorax, or pleural effusion. No displaced rib fractures identified. Upper abdominal soft tissues are unremarkable. IMPRESSION: 1. No significant interval change.
[2017-03-30] MEDS: IPRATROPIUM/ALBUTEROL 0.5-2.5 MG/3 ML AMPUL NEB SCH ×4 (08:05→19:52)
[2017-03-30 08:34] LABS: ARTERIAL BLOOD BASE EXCESS -0.4 mmol/L; ARTERIAL BLOOD FIO2 25%; ARTERIAL BLOOD H2CO3 1.16 mmol/L (1.05-1.35); ARTERIAL BLOOD PCO2 38.6 mmHg (35-45); ARTERIAL BLOOD PH 7.41 (7.35-7.45); ARTERIAL BLOOD PO2 68.8 mmHg (80-100); ARTERIAL BLOOD TOTAL CO2 25.2 mmol/L (21-25)
[2017-03-30] MEDS: HEPARIN SOD (PORCINE) 5,000 UNIT/ML 1 ML SYRINGE SUBCUT SCH ×3 (08:45→22:58)
[2017-03-30] MEDS: METHYLPREDNISOLONE INJ 125 MG/2 ML SDV IV SCH ×2 (08:49→12:41)
[2017-03-30] MEDS: LANSOPRAZOLE 15 MG TAB.RAP.DR NG SCH (08:49)
[2017-03-30] MEDS: GUAIFENESIN SYRP 200 MG/10 ML UDC NG SCH ×3 (08:49→13:27)
[2017-03-30] MEDS: POTASSIUM CHLORIDE 20 MEQ/15 ML UDCUP NG SCH ×3 (08:53→12:52)
[2017-03-30] MEDS ORDERED: POTASSI CL 20 MEQ/50 ML RIDER 20 MEQ/50 ML RTUPB IV SCH (09:15)
[2017-03-30] MEDS: MIDAZOLAM HCL 100 ML IV PRN (09:18)
[2017-03-30] MEDS: PROPOFOL 100 ML IV PRN (09:18)
[2017-03-30] MEDS: NORMAL SALINE 1000 ML 1,000 ML IV PRN ×2 (09:19→17:24)
--- NOTE | 2017-03-30 10:23 | PDOC CONSULTATION ---
Consultation Consult Date: 03/29/17 Attending physician:: TOMMIE BAUTISTA Consult reason:: Bradycardia and respiratory distress History of Present Illness Admission Date/PCP: 03/27/17 21:52 NATASHA MONTOYA MD Patient was seen in consultation yesterday in the ER but somehow dictation got either not done or missed. Patient complains of: Currently intubated and sedated. Patient not able to give any history. Previous history reviewed. History of Present Illness: ARDIAN BOWLES is a 61 year old female with past medical history of COPD, GERD, and iron deficiency anemia who presents to the emergency department via EMS.Patient has a long history of repeated admissions for exacerbations of COPD and is well-known to [facility] She present to the hospital short of breath was given a trial of noninvasive positive pressure ventilation as she was acidotic and had altered mental status is formal ventilation had minimal impact she was subsequently intubated he presents now in the ICU on mechanical ventilation sedated and intubated. This history was reviewed. In addition past medical history reviewed and previous hospitalization records reviewed. Review of records shows that patient was noted to be bradycardic. I was therefore asked to evaluate patient. Bradycardia and EKG rhythm strips were reviewed. It seems patient just has mild sinus bradycardia without any evidence of significant AV blocks. Past Medical History Cardiac Medical History: Reports: Congestive Heart Failure, Coronary Artery Disease, Hyperlipidema Pulmonary Medical History: Reports: Bronchitis, Chronic Obstructive Pulmonary Disease (COPD) EENT Medical History: Denies: Ears, Nose Neurological Medical History: Reports: Migraine Denies: Multiple Sclerosis Endocrine Medical History: Denies: Gestational Diabetes, Obesity Malignancy Medical History: Reports: None GI Medical History: Reports: Gastroesophageal Reflux Disease Denies: Crohn's Disease, Ulcerative Colitis Musculoskeltal Medical History: Reports: Arthritis Skin Medical History: Denies: Psoriasis Psychiatric Medical History: Reports: Depression, Tobacco Dependency Traumatic Medical History: Denies: Traumatic Brain Injury Hematology: Reports: Anemia Denies: Sickle Cell Disease, Bleeding Tendencies Infectious Medical History: Denies: Hepatitis B, Hepatitis C Past Surgical History Past Surgical History: Reports: Adenoidectomy, Cholecystectomy, Orthopedic Surgery - left total hip, Tonsillectomy Denies: Amputation Social History Information Source: [facility] Records Lives with: Family Smoking Status: Current Every Day Smoker Frequency of Alcohol Use: None Hx Recreational Drug Use: No Drugs: None Hx Prescription Drug Abuse: Yes - PER MED RECORDS - Advance Directive Resuscitation Status: Full Code Surrogate healthcare decision maker:: Surrogate decision-maker could not be identified by me. Family History Family History: Other - Unable to obtain Parental Family History Reviewed: No Children Family History Reviewed: No Sibling(s) Family History Reviewed.: No Medication/Allergy Home Medications: Albuterol Sulfate [Ventolin 0.083% Neb 2.5 mg/3 mL Ampul] 3 ml NEB RTTID Hydrocodone Bitartrate [Hysingla ER] 20 mg PO DAILY 03/28/17 Hydrocodone/Acetaminophen [[place] 7.5-325 mg Tablet] 1 tab PO Q8HP PRN 03/28/17 Montelukast Sodium [Singulair 10 mg Tablet] 10 mg PO QPM 03/28/17 Oxybutynin Chloride [Ditropan 5 mg Tablet] 5 mg PO BID 03/28/17 Allergies/Adverse Reactions: Penicillins Allergy (Mild, Verified 03/20/14 21:10) Review of Systems ROS unobtainable: Due to endotracheal tube Physical Exam Vital Signs: Temp Pulse Resp BP Pulse Ox 97.0 F 63 22 H 135/73 H 97 03/30/17 09:40 03/30/17 08:05 03/30/17 09:40 03/30/17 09:40 03/30/17 09:40 Intake & Output 03/29/17 03/30/17 03/31/17 06:59 06:59 06:59 Intake Total 950 1575 Output Total 815 1875 100 Balance 135 -300 -100 Weight 50 kg 48.9 kg Exam: GENERAL: well-nourished and in no acute distress. Patient is intubated and sedated. Orientation cannot be checked HEAD: Atraumatic, normocephalic. EYES: Pupils equal round and reactive to light, extraocular movements could not be checked, sclera anicteric, conjunctiva are normal. ENT: TMs normal, nares patent, oropharynx clear without exudates. Moist mucous membranes. No oral ulcerations or bleeding gums noted NECK: supple without lymphadenopathy or JVD. Trachea is central. No cervical or axillary lymphadenopathy noted. Carotids are 2+ LUNGS: Breath sounds mostly clear to auscultation patient is noted to have bibasal crackles at the extreme bases CHEST: Palpation of the chest wall shows no significant chest wall tenderness or abnormalities. 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 ABDOMEN: Soft, no significant tenderness appreciated, normoactive bowel sounds. No guarding, no rebound. No rigidity noted . No masses appreciated. EXTREMITIES: Pedal pulses are 1-2+, no calf tenderness noted, 1+ pedal edema noted. No clubbing or cyanosis. NEUROLOGICAL: The patient cannot participate in the neurological exam but no facial asymmetry noted. Extremities slightly hypotonic PSYCH: This cannot be evaluated. Patient cannot participate. SKIN: No significant ecchymosis, rash, or signs of pruritus noted. MUSCULOSKELETAL EXAM: No significant joint swelling noted. Patient cannot participate in musculoskeletal exam Results Laboratory Results: 03/30/17 05:20 03/30/17 05:20 03/28/17 03/29/17 03/29/17 05:07 06:35 06:35 WBC RBC Hgb Hct MCV MCH MCHC RDW Plt Count Seg Neutrophils % Lymphocytes % Monocytes % Eosinophils % Basophils % Absolute Neutrophils Absolute Lymphocytes Absolute Monocytes Absolute Eosinophils Absolute Basophils Carbonic Acid HCO3/H2CO3 Ratio ABG pH ABG pCO2 ABG pO2 ABG HCO3 ABG O2 Saturation ABG Base Excess FiO2 Sodium Potassium Chloride Carbon Dioxide Anion Gap BUN Creatinine Est GFR ( Amer) Est GFR (Non-Af Amer) Glucose Calcium Magnesium Transferrin 220 Total Bilirubin AST ALT Alkaline Phosphatase Total Protein Albumin TSH 0.27 L Free T4 0.51 L 03/29/17 03/30/17 03/30/17 16:52 05:20 05:20 WBC 5.9 RBC 3.65 L Hgb 9.6 L Hct 30.2 L MCV 83 MCH 26.3 L MCHC 31.8 L RDW 21.7 H Plt Count 191 Seg Neutrophils % 91.5 H Lymphocytes % 5.4 L Monocytes % 2.9 L Eosinophils % 0.0 Basophils % 0.2 Absolute Neutrophils 5.4 Absolute Lymphocytes 0.3 L Absolute Monocytes 0.2 Absolute Eosinophils 0.0 Absolute Basophils 0.0 Carbonic Acid 1.11 HCO3/H2CO3 Ratio 20:1 ABG pH 7.41 ABG pCO2 36.9 ABG pO2 82.4 ABG HCO3 22.8 ABG O2 Saturation 96.3 ABG Base Excess -1.5 FiO2 28 Sodium 144.3 Potassium 2.8 L* Chloride 114 H Carbon Dioxide 23 Anion Gap 7 BUN 6 L Creatinine 0.28 L Est GFR ( Amer) > 60 Est GFR (Non-Af Amer) > 60 Glucose 115 H Calcium 9.2 Magnesium 1.8 Transferrin Total Bilirubin 0.1 L AST 19 ALT 21 Alkaline Phosphatase 55 Total Protein 5.3 L Albumin 3.1 L TSH Free T4 03/30/17 08:22 WBC RBC Hgb Hct MCV MCH MCHC RDW Plt Count Seg Neutrophils % Lymphocytes % Monocytes % Eosinophils % Basophils % Absolute Neutrophils Absolute Lymphocytes Absolute Monocytes Absolute Eosinophils Absolute Basophils Carbonic Acid 1.16 HCO3/H2CO3 Ratio 20:1 ABG pH 7.41 ABG pCO2 38.6 ABG pO2 68.8 L ABG HCO3 24.0 ABG O2 Saturation 94.0 ABG Base Excess -0.4 FiO2 25% Sodium Potassium Chloride Carbon Dioxide Anion Gap BUN Creatinine Est GFR ( Amer) Est GFR (Non-Af Amer) Glucose Calcium Magnesium Transferrin Total Bilirubin AST ALT Alkaline Phosphatase Total Protein Albumin TSH Free T4 03/27/17 03/28/17 22:45 05:07 Troponin I < 0.012 < 0.012 EKG Comments: Initial EKG shows sinus rhythm, increased QRS voltage suggestive of LVH with some secondary ST-T wave changes. One subsequent EKG shows sinus bradycardia with occasional VPCs. Chest x-ray reviewed showed clear lung [place] with normal cardiac silhouette, possible emphysema. Impressions: Chest X-Ray 03/30/17 06:00 IMPRESSION: 1. No significant interval change. Assessment & Plan - Diagnosis (1) Bradycardia Is this a current diagnosis for this admission?: Yes (2) COPD exacerbation Is this a current diagnosis for this admission?: Yes (3) Acute and chronic respiratory failure ([id number]) Qualifiers: Respiratory failure complication: hypoxia and hypercapnia Qualified Code(s) : J96.21 - Acute and chronic respiratory failure with hypoxia; J96.22 - Acute and chronic respiratory failure with hypercapnia; J96.22 - Acute and chronic respiratory failure with hypercapnia; J96.22 - Acute and chronic respiratory failure with hypercapnia Is this a current diagnosis for this admission?: Yes - Notes Notes: Bradycardia: Patient noted to be intermittently bradycardic. Possibly related to vagal stimulation. So far patient blood pressure has been stable. At this point continue watchful observation. If significant bradycardia noted, consider transcutaneous pacing initially. May also consider IV atropine as needed, scopolamine patch etc. So far patient has maintained good cardiac output while being bradycardic therefore no acute intervention is needed at this point. COPD exacerbation: Continue current management plans with aggressive antibiotics , steroids and bronchodilator therapy. Acute on chronic respiratory failure with both hypoxemia and hypercarbia: Possibly related to significant underlying lung disease. Continue with current management plans. Appreciate the opportunity to see this patient. Will order a 2D echo to look for any cardiac complement to patient's respiratory distress. Cardiac enzymes so far has been negative. - Time Time Spent: 30 to 50 Minutes - CODE STATUS was discussed, patient remains full code. Multiple medical problems were addressed. More than 50% of the time spent coordinating care, discussing management plans with involved caregivers. Management plans discussed with involved personnels. Medical decision making was of moderate to high complexity, patient's has multiple comorbidities. Medications reviewed and adjusted accordingly: Yes
--- NOTE | 2017-03-30 10:26 | PDOC PROGRESS REPORT ---
Subjective Progress Note for:: 03/30/17 Subjective:: Patient remains intubated and sedated. There is no significant change in general condition. Patient remains intubated, sedated, patient however looks comfortable and in acute distress. Medications reviewed. Reason For Visit: PNEUMONIA,COPD EXACERBATION,SEPSIS,AMS Physical Exam Vital Signs: Temp Pulse Resp BP Pulse Ox 97.0 F 63 22 H 135/73 H 97 03/30/17 09:40 03/30/17 08:05 03/30/17 09:40 03/30/17 09:40 03/30/17 09:40 Intake & Output 03/29/17 03/30/17 03/31/17 06:59 06:59 06:59 Intake Total 950 1575 Output Total 815 1875 100 Balance 135 -300 -100 Weight 50 kg 48.9 kg Exam: GENERAL: well-nourished and in no acute distress. Patient is intubated and sedated. Orientation cannot be checked HEAD: Atraumatic, normocephalic. EYES: Pupils equal round and reactive to light, extraocular movements could not be checked, sclera anicteric, conjunctiva are normal. ENT: TMs normal, nares patent, oropharynx clear without exudates. Moist mucous membranes. No oral ulcerations or bleeding gums noted NECK: supple without lymphadenopathy or JVD. Trachea is central. No cervical or axillary lymphadenopathy noted. Carotids are 2+ LUNGS: Breath sounds mostly clear to auscultation patient is noted to have bibasal crackles at the extreme bases CHEST: Palpation of the chest wall shows no significant chest wall tenderness or abnormalities. 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 ABDOMEN: Soft, no significant tenderness appreciated, normoactive bowel sounds. No guarding, no rebound. No rigidity noted . No masses appreciated. EXTREMITIES: Pedal pulses are 1-2+, no calf tenderness noted, 1+ pedal edema noted. No clubbing or cyanosis. NEUROLOGICAL: The patient cannot participate in the neurological exam but no facial asymmetry noted. Extremities slightly hypotonic PSYCH: This cannot be evaluated. Patient cannot participate. SKIN: No significant ecchymosis, rash, or signs of pruritus noted. MUSCULOSKELETAL EXAM: No significant joint swelling noted. Patient cannot participate in musculoskeletal exam Results Laboratory Results: 03/30/17 05:20 03/30/17 05:20 03/28/17 03/29/17 03/29/17 05:07 06:35 06:35 WBC RBC Hgb Hct MCV MCH MCHC RDW Plt Count Seg Neutrophils % Lymphocytes % Monocytes % Eosinophils % Basophils % Absolute Neutrophils Absolute Lymphocytes Absolute Monocytes Absolute Eosinophils Absolute Basophils Carbonic Acid HCO3/H2CO3 Ratio ABG pH ABG pCO2 ABG pO2 ABG HCO3 ABG O2 Saturation ABG Base Excess FiO2 Sodium Potassium Chloride Carbon Dioxide Anion Gap BUN Creatinine Est GFR ( Amer) Est GFR (Non-Af Amer) Glucose Calcium Magnesium Transferrin 220 Total Bilirubin AST ALT Alkaline Phosphatase Total Protein Albumin TSH 0.27 L Free T4 0.51 L 03/29/17 03/30/17 03/30/17 16:52 05:20 05:20 WBC 5.9 RBC 3.65 L Hgb 9.6 L Hct 30.2 L MCV 83 MCH 26.3 L MCHC 31.8 L RDW 21.7 H Plt Count 191 Seg Neutrophils % 91.5 H Lymphocytes % 5.4 L Monocytes % 2.9 L Eosinophils % 0.0 Basophils % 0.2 Absolute Neutrophils 5.4 Absolute Lymphocytes 0.3 L Absolute Monocytes 0.2 Absolute Eosinophils 0.0 Absolute Basophils 0.0 Carbonic Acid 1.11 HCO3/H2CO3 Ratio 20:1 ABG pH 7.41 ABG pCO2 36.9 ABG pO2 82.4 ABG HCO3 22.8 ABG O2 Saturation 96.3 ABG Base Excess -1.5 FiO2 28 Sodium 144.3 Potassium 2.8 L* Chloride 114 H Carbon Dioxide 23 Anion Gap 7 BUN 6 L Creatinine 0.28 L Est GFR ( Amer) > 60 Est GFR (Non-Af Amer) > 60 Glucose 115 H Calcium 9.2 Magnesium 1.8 Transferrin Total Bilirubin 0.1 L AST 19 ALT 21 Alkaline Phosphatase 55 Total Protein 5.3 L Albumin 3.1 L TSH Free T4 03/30/17 08:22 WBC RBC Hgb Hct MCV MCH MCHC RDW Plt Count Seg Neutrophils % Lymphocytes % Monocytes % Eosinophils % Basophils % Absolute Neutrophils Absolute Lymphocytes Absolute Monocytes Absolute Eosinophils Absolute Basophils Carbonic Acid 1.16 HCO3/H2CO3 Ratio 20:1 ABG pH 7.41 ABG pCO2 38.6 ABG pO2 68.8 L ABG HCO3 24.0 ABG O2 Saturation 94.0 ABG Base Excess -0.4 FiO2 25% Sodium Potassium Chloride Carbon Dioxide Anion Gap BUN Creatinine Est GFR ( Amer) Est GFR (Non-Af Amer) Glucose Calcium Magnesium Transferrin Total Bilirubin AST ALT Alkaline Phosphatase Total Protein Albumin TSH Free T4 03/27/17 03/28/17 22:45 05:07 Troponin I < 0.012 < 0.012 EKG Comments: Telemetry strips shows intermittent mild sinus bradycardia with normal to high blood pressure being noted during bradycardia per nurses Impressions: Chest X-Ray 03/30/17 06:00 IMPRESSION: 1. No significant interval change. Assessment & Plan - Diagnosis (1) Bradycardia Is this a current diagnosis for this admission?: Yes (2) COPD exacerbation Is this a current diagnosis for this admission?: Yes (3) Acute and chronic respiratory failure ([id number]) Qualifiers: Respiratory failure complication: hypoxia and hypercapnia Qualified Code(s) : J96.21 - Acute and chronic respiratory failure with hypoxia; J96.22 - Acute and chronic respiratory failure with hypercapnia; J96.22 - Acute and chronic respiratory failure with hypercapnia; J96.22 - Acute and chronic respiratory failure with hypercapnia Is this a current diagnosis for this admission?: Yes - Notes Notes: Currently mild and without any significant lowering of blood pressure. At this point will observe. Feel this is due to vagal stimulation. Will place patient on a scopolamine patch. For respiratory failure, continue ventilatory support. For COPD exacerbation: Continue with aggressive treatment with bronchodilators and steroids and antibiotics Septra. - Time Time with patient: Greater than 35 minutes - Patient remains critically ill needing ventilatory support. Currently not needing any vasopressors. CODE STATUS was discussed, patient remains full code. Multiple medical problems were addressed. More than 50% of the time spent coordinating care, discussing management plans with involved caregivers. Management plans discussed with involved personnels. Medical decision making was of moderate to high complexity , patient's has multiple comorbidities. Medications reviewed and adjusted accordingly: Yes
[2017-03-30] MEDS ORDERED: SCOPOLAMINE HYDROBROMIDE 1.5 MG PATCH.TD72 TD SCH (11:00)
[2017-03-30 11:14] LABS: ANION GAP 9 (5-19); BLOOD UREA NITROGEN 5 mg/dL (7-20); CALCIUM 9.3 mg/dL (8.4-10.2); CARBON DIOXIDE 22 mmol/L (22-30); CHLORIDE 114 mmol/L (98-107); GLUCOSE 93 mg/dL (75-110); MAGNESIUM 1.7 mg/dL (1.6-2.3); POTASSIUM 3.3 mmol/L (3.6-5.0); SODIUM 145.1 mmol/L (137-145)
[2017-03-30] MEDS: VANCOMYCIN HCL 1,000 MG in DEXTROSE 5%-WATER 250 ML IV SCH (11:18)
[2017-03-30 11:21] LABS: VANCOMYCIN,TROUGH 12.2 ug/mL (5.0-20.0)
[2017-03-30] MEDS: ERTAPENEM SODIUM 1 GM in NORMAL SALINE 50 ML IV SCH (12:41)
[2017-03-30 13:11] LABS: ARTERIAL BLOOD BASE EXCESS -1.4 mmol/L; ARTERIAL BLOOD H2CO3 1.32 mmol/L (1.05-1.35); ARTERIAL BLOOD HCO3 24.1 mmol/L (20-26); ARTERIAL BLOOD O2 SATURATION 98.1 % (94-98); ARTERIAL BLOOD PCO2 43.9 mmHg (35-45); ARTERIAL BLOOD PH 7.36 (7.35-7.45); ARTERIAL BLOOD PO2 117.9 mmHg (80-100); ARTERIAL BLOOD TOTAL CO2 25.5 mmol/L (21-25)
[2017-03-30 13:13] LABS: ARTERIAL BLOOD FIO2 40%
--- NOTE | 2017-03-30 13:40 | PDOC PROGRESS REPORT ---
Subjective Progress Note for:: 03/30/17 Subjective:: On vent overnight. AM ABG reviewed and acceptable. Spoke with SUIT ATTENDANT and pulmonology who agreed with sedation holiday. Patient was able to open her eyes. Decision was made to extubate her, which was successfully done around 1pm. Repeat ABG acceptable. Will continue to monitor in ICU overnight and then transfer to [facility] on 03/31. Reason For Visit: PNEUMONIA,COPD EXACERBATION,SEPSIS,AMS Physical Exam Vital Signs: Temp Pulse Resp BP Pulse Ox 98.2 F 67 30 H 159/75 H 100 03/30/17 12:00 03/30/17 12:00 03/30/17 12:00 03/30/17 12:00 03/30/17 12:00 Intake & Output 03/29/17 03/30/17 03/31/17 06:59 06:59 06:59 Intake Total 950 1575 Output Total 815 1875 375 Balance 135 -300 -375 Weight 50 kg 48.9 kg General appearance: PRESENT: thin, other - Sedated and intubated Head exam: PRESENT: normocephalic Mouth exam: PRESENT: dry mucosa, other - ETT in place Respiratory exam: PRESENT: rhonchi, unlabored Cardiovascular exam: PRESENT: bradycardia, +S1, +S2 GI/Abdominal exam: PRESENT: soft. ABSENT: tenderness Neurological exam: PRESENT: other - Intubated and sedated, unable to assess Results Laboratory Results: 03/30/17 05:20 03/30/17 10:33 03/29/17 03/29/17 03/30/17 06:35 16:52 05:20 WBC 5.9 RBC 3.65 L Hgb 9.6 L Hct 30.2 L MCV 83 MCH 26.3 L MCHC 31.8 L RDW 21.7 H Plt Count 191 Seg Neutrophils % 91.5 H Lymphocytes % 5.4 L Monocytes % 2.9 L Eosinophils % 0.0 Basophils % 0.2 Absolute Neutrophils 5.4 Absolute Lymphocytes 0.3 L Absolute Monocytes 0.2 Absolute Eosinophils 0.0 Absolute Basophils 0.0 Carbonic Acid 1.11 HCO3/H2CO3 Ratio 20:1 ABG pH 7.41 ABG pCO2 36.9 ABG pO2 82.4 ABG HCO3 22.8 ABG O2 Saturation 96.3 ABG Base Excess -1.5 FiO2 28 Sodium Potassium Chloride Carbon Dioxide Anion Gap BUN Creatinine Est GFR ( Amer) Est GFR (Non-Af Amer) Glucose Calcium Magnesium Total Bilirubin AST ALT Alkaline Phosphatase Total Protein Albumin Free T4 0.51 L 03/30/17 03/30/17 03/30/17 05:20 08:22 10:33 WBC RBC Hgb Hct MCV MCH MCHC RDW Plt Count Seg Neutrophils % Lymphocytes % Monocytes % Eosinophils % Basophils % Absolute Neutrophils Absolute Lymphocytes Absolute Monocytes Absolute Eosinophils Absolute Basophils Carbonic Acid 1.16 HCO3/H2CO3 Ratio 20:1 ABG pH 7.41 ABG pCO2 38.6 ABG pO2 68.8 L ABG HCO3 24.0 ABG O2 Saturation 94.0 ABG Base Excess -0.4 FiO2 25% Sodium 144.3 Potassium 2.8 L* Chloride 114 H Carbon Dioxide 23 Anion Gap 7 BUN 6 L Creatinine 0.28 L Cancelled Est GFR ( Amer) > 60 Cancelled Est GFR (Non-Af Amer) > 60 Cancelled Glucose 115 H Calcium 9.2 Magnesium 1.8 Total Bilirubin 0.1 L AST 19 ALT 21 Alkaline Phosphatase 55 Total Protein 5.3 L Albumin 3.1 L Free T4 03/30/17 03/30/17 10:33 12:32 WBC RBC Hgb Hct MCV MCH MCHC RDW Plt Count Seg Neutrophils % Lymphocytes % Monocytes % Eosinophils % Basophils % Absolute Neutrophils Absolute Lymphocytes Absolute Monocytes Absolute Eosinophils Absolute Basophils Carbonic Acid 1.32 HCO3/H2CO3 Ratio 18:1 ABG pH 7.36 ABG pCO2 43.9 ABG pO2 117.9 H ABG HCO3 24.1 ABG O2 Saturation 98.1 H ABG Base Excess -1.4 FiO2 40% Sodium 145.1 H Potassium 3.3 L Chloride 114 H Carbon Dioxide 22 Anion Gap 9 BUN 5 L Creatinine 0.29 L Est GFR ( Amer) > 60 Est GFR (Non-Af Amer) > 60 Glucose 93 Calcium 9.3 Magnesium 1.7 Total Bilirubin AST ALT Alkaline Phosphatase Total Protein Albumin Free T4 03/27/17 03/28/17 22:45 05:07 Troponin I < 0.012 < 0.012 Impressions: Chest X-Ray 03/30/17 06:00 IMPRESSION: 1. No significant interval change. Assessment & Plan - Diagnosis (1) Pneumonia Qualifiers: Pneumonia type: due to unspecified organism Laterality: unspecified laterality Lung location: unspecified part of lung Qualified Code(s): J18.9 - Pneumonia, unspecified organism Is this a current diagnosis for this admission?: Yes Plan: Known history of MRSA pneumonia. Interestingly admission CXR and subsequent CXR without evidence of consolidation. - Extubated on 03/30, improvement in ABG - Sputum culture growing GPC in clusters which is likely colonization, blood cultures no growth at 2 days - Given lack of convincing evidence this is in fact PNA, discontinued vancomycin , azithromycin, and Invanz for broad and empiric coverage - Transition from stress code steroids to prednisone 40mg * 3 additional days - Low threshold for putting patient on BiPaP if tachypnic or desaturating given known lung disease - Will watch in ICU overnight and transfer to [facility] on 03/31 (2) Obstructive chronic bronchitis with exacerbation Is this a current diagnosis for this admission?: Yes Plan: Known history of COPD - Continue scheduled nebulized treatments + steroids - Management per above (3) Sepsis Qualifiers: Sepsis type: sepsis due to unspecified organism Qualified Code(s): A41.9 - Sepsis, unspecified organism Is this a current diagnosis for this admission?: Yes Plan: Meet criteria at admission, now improved/resolved as of 03/30/17 (4) Acute encephalopathy Is this a current diagnosis for this admission?: Yes Plan: Improving (5) Bradycardia Is this a current diagnosis for this admission?: Yes Plan: Sinus bradycardia - Cardiology was consulted - Was placed on scopolamine patch - CTM on telemetry - Time Time Spent with patient: 15-24 minutes - Plan Summary Plan Summary: Clinically improving, likely transfer to floor bed on 03/31 if respiratory status remains stable
[2017-03-30] MEDS ORDERED: DEXTROSE 40% GEL 15 GM TUBE PO PRN ×2 (16:30)
[2017-03-30] MEDS: MONTELUKAST SODIUM 10 MG TABLET PO SCH (17:16)
[2017-03-30] MEDS: LANSOPRAZOLE 15 MG TAB.RAP.DR PO SCH (17:16)
[2017-03-30] MEDS: GUAIFENESIN SYRP 200 MG/10 ML UDC PO SCH ×2 (17:17→22:54)
[2017-03-31] MEDS: GUAIFENESIN SYRP 200 MG/10 ML UDC PO SCH ×6 (03:31→22:59)
[2017-03-31 04:28] LABS: ABSOLUTE LYMPHOCYTES (AUTO) 0.8 10^3/uL (0.5-4.7); ABSOLUTE MONOCYTES (AUTO) 0.6 10^3/uL (0.1-1.4); ABSOLUTE NEUT (AUTO) 6.2 10^3/uL (1.7-8.2); BASOPHILS % (AUTO) 0.3 % (0-2); HEMATOCRIT 28.4 % (36.0-47.0); HEMOGLOBIN 9.1 g/dL (12.0-15.5); LYMPHOCYTES % (AUTO) 10.9 % (13-45); MEAN CORPUSCULAR HEMOGLOBIN 26.7 pg (27.0-33.4); MEAN CORPUSCULAR HGB CONC 32.1 g/dL (32.0-36.0); MEAN CORPUSCULAR VOLUME 83 fl (80-97); MONOCYTES % (AUTO) 7.5 % (3-13); PLATELET COUNT 172 10^3/uL (150-450); RED BLOOD COUNT 3.41 10^6/uL (3.72-5.28); RED CELL DISTRIBUTION WIDTH 21.3 % (11.5-14.0); SEGMENTED NEUTROPHILS % (AUTO) 81.3 % (42-78); TOTAL CELLS COUNTED % (AUTO) 100 %; WHITE BLOOD COUNT 7.6 10^3/uL (4.0-10.5)
[2017-03-31 04:42] LABS: ANION GAP 7 (5-19); BLOOD UREA NITROGEN 2 mg/dL (7-20); CALCIUM 9.1 mg/dL (8.4-10.2); CARBON DIOXIDE 26 mmol/L (22-30); CHLORIDE 114 mmol/L (98-107); GLUCOSE 74 mg/dL (75-110); MAGNESIUM 1.6 mg/dL (1.6-2.3); POTASSIUM 3.1 mmol/L (3.6-5.0); SODIUM 146.5 mmol/L (137-145)
--- NOTE | 2017-03-31 06:35 | RADIOLOGY REPORT (SQ) ---
EXAM DESCRIPTION: CHEST SINGLE VIEW CLINICAL HISTORY: resp failure COMPARISON: 03/29/2017 FINDINGS: Single frontal view of the chest. Interval removal of NG tube. Endotracheal tube has been removed. Atherosclerotic calcification aortic arch. Heart is not enlarged. Possible small right pleural effusion. Interval development of mild bibasilar opacity. No pneumothorax. No displaced rib fractures identified. Upper abdominal soft tissues are unremarkable. IMPRESSION: 1. Interval removal of endotracheal tube and NG tube. 2. Decreased aeration of the lung bases bilaterally likely related to atelectasis and possible small right pleural effusion.
[2017-03-31] MEDS: HEPARIN SOD (PORCINE) 5,000 UNIT/ML 1 ML SYRINGE SUBCUT SCH ×3 (07:31→22:59)
[2017-03-31] MEDS: LANSOPRAZOLE 15 MG TAB.RAP.DR PO SCH ×2 (07:36→18:36)
[2017-03-31] MEDS: IPRATROPIUM/ALBUTEROL 0.5-2.5 MG/3 ML AMPUL NEB SCH ×4 (08:13→20:02)
[2017-03-31] MEDS: PREDNISONE 20 MG TABLET PO SCH (09:36)
[2017-03-31] MEDS: LEVOFLOXACIN 500 MG/D5W RTU 500 MG/100 ML RTUPB IV SCH (09:36)
[2017-03-31] MEDS: POTASSIUM CHLORIDE 10 MEQ TABLET.SA PO SCH ×2 (09:38→18:36)
--- NOTE | 2017-03-31 13:26 | PDOC PROGRESS REPORT ---
Subjective Progress Note for:: 03/31/17 Subjective:: Seen in MICU. Doing much better. On 2L. Breathing feels comfortable. Complaining of weakness. Did well with breakfast. Katerine fevers, chills. Will be transferred to floor later today Reason For Visit: PNEUMONIA,COPD EXACERBATION,SEPSIS,AMS Physical Exam Vital Signs: Temp Pulse Resp BP Pulse Ox 98.2 F 70 18 147/73 H 97 03/31/17 08:00 03/31/17 11:55 03/31/17 11:55 03/31/17 08:00 03/31/17 11:55 Intake & Output 03/30/17 03/31/17 04/01/17 06:59 06:59 06:59 Intake Total 1575 4305 Output Total 1875 3325 Balance -300 980 Weight 48.9 kg 51.8 kg General appearance: PRESENT: no acute distress, thin, other - Frail appearing, interactive, sitting up in bed Head exam: PRESENT: normocephalic Mouth exam: PRESENT: dry mucosa Respiratory exam: PRESENT: tachypnea, wheezes - Occasional wheeze Cardiovascular exam: PRESENT: RRR GI/Abdominal exam: PRESENT: soft. ABSENT: tenderness Neurological exam: PRESENT: alert, awake, oriented to person, oriented to place , oriented to time, CN II-XII grossly intact Psychiatric exam: PRESENT: appropriate affect Results Laboratory Results: 03/31/17 04:19 03/31/17 04:19 03/30/17 03/31/17 03/31/17 14:45 04:19 04:19 WBC 7.6 RBC 3.41 L Hgb 9.1 L Hct 28.4 L MCV 83 MCH 26.7 L MCHC 32.1 RDW 21.3 H Plt Count 172 Seg Neutrophils % 81.3 H Lymphocytes % 10.9 L Monocytes % 7.5 Eosinophils % 0.0 Basophils % 0.3 Absolute Neutrophils 6.2 Absolute Lymphocytes 0.8 Absolute Monocytes 0.6 Absolute Eosinophils 0.0 Absolute Basophils 0.0 Sodium 146.5 H Potassium 3.8 3.1 L Chloride 114 H Carbon Dioxide 26 Anion Gap 7 BUN 2 L Creatinine 0.33 L Est GFR ( Amer) > 60 Est GFR (Non-Af Amer) > 60 Glucose 74 L Calcium 9.1 Magnesium 1.6 01/10/18 01/11/18 22:45 05:07 Troponin I < 0.012 < 0.012 Impressions: Chest X-Ray 03/31/17 06:00 IMPRESSION: 1. Interval removal of endotracheal tube and NG tube. 2. Decreased aeration of the lung bases bilaterally likely related to atelectasis and possible small right pleural effusion. Assessment & Plan - Diagnosis (1) Acute and chronic respiratory failure ([id number]) Qualifiers: Respiratory failure complication: hypoxia and hypercapnia Qualified Code(s) : J96.21 - Acute and chronic respiratory failure with hypoxia; J96.22 - Acute and chronic respiratory failure with hypercapnia; J96.22 - Acute and chronic respiratory failure with hypercapnia; J96.22 - Acute and chronic respiratory failure with hypercapnia Is this a current diagnosis for this admission?: Yes Plan: Known history of MRSA pneumonia. Hypoxic and hypercapneic requiring intubation. Admission CXR and subsequent CXR without evidence of PNA Was treated with broad spectrum abx however now simplified. - Sputum culture growing GPC in clusters which is likely colonization, blood cultures no growth at 3 days - Given lack of convincing evidence this is in fact PNA, continue levaquin to complete 7 day antibiotic course total - Continue prednisone 40mg * 2 additional days - Wean down O2 as tolerated, goal is <88% - Patient states that she quit smoking 2-3 weeks ago, congratulated her and encouraged her to not smoke (2) Obstructive chronic bronchitis with exacerbation Is this a current diagnosis for this admission?: Yes Plan: Known history of COPD - Continue scheduled nebulized treatments + steroids - Management per above - Will ensure she is on good COPD outpatient regimen at discharge (3) Acute encephalopathy Is this a current diagnosis for this admission?: Yes Plan: Improving, secondary to acute illness, hypoxia, hypercapnea (4) Bradycardia Is this a current diagnosis for this admission?: Yes Plan: Sinus bradycardia - Cardiology was consulted - Was placed on scopolamine patch - Cards ordered glenda GRIER on 04/01 - CTM on telemetry - Time Anticipated discharge: Home with Homehealth Within: within 48 hours
--- NOTE | 2017-03-31 15:43 | PDOC PROGRESS REPORT ---
Subjective Progress Note for:: 03/31/17 Subjective:: Patient seems to be doing better with gradual improvement. Pt is denying any chest arm or neck discomfort. Patient denying any PND, orthopnea. Patient denied any sustained palpitations, dizziness, syncope, near syncope. Patient denying any fever chills. Patient denying any other significant discomfort. Patient is maintaining sinus rhythm. Minimal sinus bradycardia noted. Review of systems: Rest review of systems negative. Medications: Medications have been reviewed. Medications reviewed. Medications reviewed. Reason For Visit: PNEUMONIA,COPD EXACERBATION,SEPSIS,AMS Physical Exam Vital Signs: Temp Pulse Resp BP Pulse Ox 97.9 F 70 18 147/73 H 97 03/31/17 09:00 03/31/17 11:55 03/31/17 11:55 03/31/17 08:00 03/31/17 11:55 Intake & Output 03/30/17 03/31/17 04/01/17 06:59 06:59 06:59 Intake Total 1575 4305 400 Output Total 1875 3325 1400 Balance -300 980 -1000 Weight 48.9 kg 51.8 kg Exam: GENERAL: well-nourished and in no acute distress. Alert and oriented x3 HEAD: Atraumatic, normocephalic. EYES: Pupils equal round and reactive to light, extraocular movements intact, sclera anicteric, conjunctiva are normal. ENT: TMs normal, nares patent, oropharynx clear without exudates. Moist mucous membranes. No oral ulcerations or bleeding gums noted NECK: supple without lymphadenopathy. Trachea is central. No cervical or axillary lymphadenopathy noted. Carotids are 2+, JVD WNL LUNGS: Respiration seems nonlabored, no significant accessory muscle action noted. Mild bibasilar wheezing and few bibasilar crackles noted. No significant dullness noted on percussion. CHEST: Palpation of the chest wall shows no significant chest wall tenderness. No other significant abnormalities noted. 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 ABDOMEN: Soft, no significant tenderness appreciated, normoactive bowel sounds. No guarding, no rebound. No rigidity noted . No masses appreciated. EXTREMITIES: Pedal pulses are 1-2+, no calf tenderness noted. No clubbing or cyanosis.trace to 1+ pedal edema noted NEUROLOGICAL: Focused neurological exam showed no significant neurologic deficit. Normal speech, no focal weakness appreciated. PSYCH: Normal mood, normal affect. Judgment and insight within normal limits. SKIN: No significant ecchymosis, rash, ulcerations or signs of pruritus noted. MUSCULOSKELETAL EXAM: No significant joint swelling noted. Results Laboratory Results: 03/31/17 04:19 03/31/17 04:19 03/31/17 03/31/17 04:19 04:19 WBC 7.6 RBC 3.41 L Hgb 9.1 L Hct 28.4 L MCV 83 MCH 26.7 L MCHC 32.1 RDW 21.3 H Plt Count 172 Seg Neutrophils % 81.3 H Lymphocytes % 10.9 L Monocytes % 7.5 Eosinophils % 0.0 Basophils % 0.3 Absolute Neutrophils 6.2 Absolute Lymphocytes 0.8 Absolute Monocytes 0.6 Absolute Eosinophils 0.0 Absolute Basophils 0.0 Sodium 146.5 H Potassium 3.1 L Chloride 114 H Carbon Dioxide 26 Anion Gap 7 BUN 2 L Creatinine 0.33 L Est GFR ( Amer) > 60 Est GFR (Non-Af Amer) > 60 Glucose 74 L Calcium 9.1 Magnesium 1.6 03/27/17 03/28/17 22:45 05:07 Troponin I < 0.012 < 0.012 EKG Comments: Telemetry strips shows sinus rhythm. Impressions: Chest X-Ray 03/31/17 06:00 IMPRESSION: 1. Interval removal of endotracheal tube and NG tube. 2. Decreased aeration of the lung bases bilaterally likely related to atelectasis and possible small right pleural effusion. Assessment & Plan - Diagnosis (1) Bradycardia Is this a current diagnosis for this admission?: Yes (2) COPD exacerbation Is this a current diagnosis for this admission?: Yes (3) Acute and chronic respiratory failure ([id number]) Qualifiers: Respiratory failure complication: hypoxia and hypercapnia Qualified Code(s) : J96.21 - Acute and chronic respiratory failure with hypoxia; J96.22 - Acute and chronic respiratory failure with hypercapnia; J96.22 - Acute and chronic respiratory failure with hypercapnia; J96.22 - Acute and chronic respiratory failure with hypercapnia Is this a current diagnosis for this admission?: Yes (4) Pneumonia Qualifiers: Pneumonia type: due to unspecified organism Laterality: unspecified laterality Lung location: lower lobe of lung Qualified Code(s): J18.1 - Lobar pneumonia, unspecified organism Is this a current diagnosis for this admission?: Yes - Notes Notes: Bradycardia: Currently stable. May discontinue the scopolamine patch in a.m. Do not feel any intervention be needed. Acute on chronic respiratory failure: Related to COPD exacerbation and pneumonia. Currently improved. Pneumonia: Chest x-ray reviewed. Patient seems to have right basal pneumonia. There is associated small right pleural effusion. Hopefully this would resolve by itself. Will repeat an EKG tomorrow. Feel that patient's problems predominantly pulmonary. Will sign off. Please reconsult if needed. - Time Time with patient: 15-25 minutes Medications reviewed and adjusted accordingly: Yes
[2017-03-31] MEDS: MONTELUKAST SODIUM 10 MG TABLET PO SCH (18:36)
[2017-03-31] MEDS: NORMAL SALINE 1000 ML 1,000 ML IV PRN (20:47)
[2017-03-31] MEDS ORDERED: LINEZOLID 600 MG TABLET PO SCH (22:00)
[2017-03-31] MEDS: ACETAMINOPHEN SOLN 325 MG/10.15 ML UDCUP PO PRN (23:10)
[2017-04-01] MEDS: GUAIFENESIN SYRP 200 MG/10 ML UDC PO SCH ×6 (01:50→22:58)
[2017-04-01] MEDS: HEPARIN SOD (PORCINE) 5,000 UNIT/ML 1 ML SYRINGE SUBCUT SCH ×3 (05:22→22:58)
[2017-04-01] MEDS: LANSOPRAZOLE 15 MG TAB.RAP.DR PO SCH ×2 (05:22→16:07)
[2017-04-01 07:01] LABS: ANION GAP 9 (5-19); BLOOD UREA NITROGEN 2 mg/dL (7-20); CALCIUM 9.2 mg/dL (8.4-10.2); CARBON DIOXIDE 31 mmol/L (22-30); CHLORIDE 105 mmol/L (98-107); GLUCOSE 61 mg/dL (75-110); POTASSIUM 3.8 mmol/L (3.6-5.0); SODIUM 145.1 mmol/L (137-145)
[2017-04-01] MEDS ORDERED: INSULIN LISPRO 100 UNIT/ML 3 ML VIAL SUBCUT PRN (08:00)
[2017-04-01] MEDS: IPRATROPIUM/ALBUTEROL 0.5-2.5 MG/3 ML AMPUL NEB SCH ×4 (08:45→21:08)
[2017-04-01] MEDS: POTASSIUM CHLORIDE 10 MEQ TABLET.SA PO SCH ×2 (11:34→18:51)
[2017-04-01] MEDS: LEVOFLOXACIN 500 MG/D5W RTU 500 MG/100 ML RTUPB IV SCH (11:34)
[2017-04-01] MEDS: PREDNISONE 20 MG TABLET PO SCH (11:34)
--- NOTE | 2017-04-01 13:10 | PDOC PROGRESS REPORT ---
Subjective Progress Note for:: 04/01/17 Subjective:: Status post extubation Reason For Visit: PNEUMONIA,COPD EXACERBATION,SEPSIS,AMS Physical Exam Vital Signs: Temp Pulse Resp BP Pulse Ox 96.8 F L 63 26 H 167/81 H 97 03/30/17 08:00 03/30/17 08:05 03/30/17 08:05 03/30/17 08:00 03/30/17 08:05 Intake & Output 03/29/17 03/30/17 03/31/17 06:59 06:59 06:59 Intake Total 950 1575 Output Total 815 1875 100 Balance 135 -300 -100 Weight 50 kg 48.9 kg General appearance: PRESENT: no acute distress, disheveled. ABSENT: mild distress, morbidly obese, obese, severe distress, thin Head exam: PRESENT: atraumatic, normocephalic Eye exam: PRESENT: conjunctiva pale, EOMI. ABSENT: conjunctival injection, conjunctiva pink, nystagmus, periorbital swelling, scleral icterus Mouth exam: PRESENT: dry mucosa, neck supple, tongue midline. ABSENT: laceration, moist Teeth exam: PRESENT: poor dentation Neck exam: ABSENT: carotid bruit, JVD, lymphadenopathy, thyromegaly, tracheal deviation, tracheostomy Respiratory exam: PRESENT: decreased breath sounds, prolonged expiratory phas, rhonchi, symmetrical, unlabored, wheezes. ABSENT: accessory muscle use, chest wall tenderness, clear to auscultation rohan, crackles, retraction, stridor, tachypnea Cardiovascular exam: PRESENT: RRR, +S1, +S2 Pulses: PRESENT: normal radial pulses GI/Abdominal exam: PRESENT: diminished bowel sounds, soft Extremities exam: ABSENT: clubbing, joint swelling Musculoskeletal exam: ABSENT: deformity, dislocation Neurological exam: PRESENT: awake Psychiatric exam: PRESENT: flat affect Skin exam: PRESENT: dry, warm Results Laboratory Results: 03/30/17 05:20 03/30/17 05:20 03/28/17 03/29/17 03/29/17 05:07 06:35 06:35 WBC RBC Hgb Hct MCV MCH MCHC RDW Plt Count Seg Neutrophils % Lymphocytes % Monocytes % Eosinophils % Basophils % Absolute Neutrophils Absolute Lymphocytes Absolute Monocytes Absolute Eosinophils Absolute Basophils Carbonic Acid HCO3/H2CO3 Ratio ABG pH ABG pCO2 ABG pO2 ABG HCO3 ABG O2 Saturation ABG Base Excess FiO2 Sodium Potassium Chloride Carbon Dioxide Anion Gap BUN Creatinine Est GFR ( Amer) Est GFR (Non-Af Amer) Glucose Calcium Magnesium Transferrin 220 Total Bilirubin AST ALT Alkaline Phosphatase Total Protein Albumin TSH 0.27 L Free T4 0.51 L 03/29/17 03/30/17 03/30/17 16:52 05:20 05:20 WBC 5.9 RBC 3.65 L Hgb 9.6 L Hct 30.2 L MCV 83 MCH 26.3 L MCHC 31.8 L RDW 21.7 H Plt Count 191 Seg Neutrophils % 91.5 H Lymphocytes % 5.4 L Monocytes % 2.9 L Eosinophils % 0.0 Basophils % 0.2 Absolute Neutrophils 5.4 Absolute Lymphocytes 0.3 L Absolute Monocytes 0.2 Absolute Eosinophils 0.0 Absolute Basophils 0.0 Carbonic Acid 1.11 HCO3/H2CO3 Ratio 20:1 ABG pH 7.41 ABG pCO2 36.9 ABG pO2 82.4 ABG HCO3 22.8 ABG O2 Saturation 96.3 ABG Base Excess -1.5 FiO2 28 Sodium 144.3 Potassium 2.8 L* Chloride 114 H Carbon Dioxide 23 Anion Gap 7 BUN 6 L Creatinine 0.28 L Est GFR ( Amer) > 60 Est GFR (Non-Af Amer) > 60 Glucose 115 H Calcium 9.2 Magnesium 1.8 Transferrin Total Bilirubin 0.1 L AST 19 ALT 21 Alkaline Phosphatase 55 Total Protein 5.3 L Albumin 3.1 L TSH Free T4 03/30/17 08:22 WBC RBC Hgb Hct MCV MCH MCHC RDW Plt Count Seg Neutrophils % Lymphocytes % Monocytes % Eosinophils % Basophils % Absolute Neutrophils Absolute Lymphocytes Absolute Monocytes Absolute Eosinophils Absolute Basophils Carbonic Acid 1.16 HCO3/H2CO3 Ratio 20:1 ABG pH 7.41 ABG pCO2 38.6 ABG pO2 68.8 L ABG HCO3 24.0 ABG O2 Saturation 94.0 ABG Base Excess -0.4 FiO2 25% Sodium Potassium Chloride Carbon Dioxide Anion Gap BUN Creatinine Est GFR ( Amer) Est GFR (Non-Af Amer) Glucose Calcium Magnesium Transferrin Total Bilirubin AST ALT Alkaline Phosphatase Total Protein Albumin TSH Free T4 03/27/17 03/28/17 22:45 05:07 Troponin I < 0.012 < 0.012 Impressions: Chest X-Ray 03/30/17 06:00 IMPRESSION: 1. No significant interval change. Assessment & Plan - Diagnosis (1) Pneumonia Qualifiers: Pneumonia type: due to unspecified organism Laterality: unspecified laterality Lung location: lower lobe of lung Qualified Code(s): J18.1 - Lobar pneumonia, unspecified organism Is this a current diagnosis for this admission?: Yes Plan: 03/28/17 03:11 Gram Stain - Final Sputum Sputum Culture - Final Mrsa (Meth Resis Staph Aureus) Morax.(Branhamella)Catarrhalis Reduced Normal Soraya (2) Acute and chronic respiratory failure ([id number]) Qualifiers: Respiratory failure complication: hypoxia and hypercapnia Qualified Code(s) : J96.21 - Acute and chronic respiratory failure with hypoxia; J96.22 - Acute and chronic respiratory failure with hypercapnia; J96.22 - Acute and chronic respiratory failure with hypercapnia; J96.22 - Acute and chronic respiratory failure with hypercapnia Is this a current diagnosis for this admission?: Yes Plan: continue to oxygenate and ventilate at baseline (3) Anemia Qualifiers: Anemia type: iron deficiency Iron deficiency anemia type: unspecified iron deficiency Qualified Code(s): D50.9 - Iron deficiency anemia, unspecified Is this a current diagnosis for this admission?: Yes Plan: unchanged
--- NOTE | 2017-04-01 13:33 | PDOC PROGRESS REPORT ---
Subjective Progress Note for:: 04/01/17 Subjective:: Continues to do better. Complaining of cough today however breathing is much improved. Has not worked with PT yet. Eating breakfast at time of evaluation. Katerine fevers, chills, or other complaints. Reason For Visit: PNEUMONIA,COPD EXACERBATION,SEPSIS,AMS Physical Exam Vital Signs: Temp Pulse Resp BP Pulse Ox 97.6 F 72 16 156/71 H 96 04/01/17 08:57 04/01/17 11:58 04/01/17 11:58 04/01/17 08:57 04/01/17 11:58 Intake & Output 03/31/17 04/01/17 04/02/17 06:59 06:59 06:59 Intake Total 4305 3148 Output Total 3325 4970 Balance 980 -3052 Weight 51.8 kg 55.1 kg General appearance: PRESENT: no acute distress, other - Frail appearing, pale Eye exam: PRESENT: EOMI Mouth exam: PRESENT: moist Teeth exam: PRESENT: edentulous Respiratory exam: PRESENT: prolonged expiratory phas, unlabored, wheezes - occasional, other - On supplemental 02 Cardiovascular exam: PRESENT: bradycardia, +S1, +S2 GI/Abdominal exam: PRESENT: soft. ABSENT: tenderness Musculoskeletal exam: PRESENT: full ROM Neurological exam: PRESENT: alert, awake, CN II-XII grossly intact Results Laboratory Results: 03/31/17 04:19 04/01/17 05:32 04/01/17 05:32 Sodium 145.1 H Potassium 3.8 Chloride 105 Carbon Dioxide 31 H Anion Gap 9 BUN 2 L Creatinine 0.35 L Est GFR ( Amer) > 60 Est GFR (Non-Af Amer) > 60 Glucose 61 L Calcium 9.2 03/28/17 03:11 Sputum Gram Stain - Final 03/28/17 03:11 Sputum Sputum Culture - Final Mrsa (Meth Resis Staph Aureus) Morax.(Branhamella)Catarrhalis Reduced Normal Soraya 03/27/17 03/28/17 22:45 05:07 Troponin I < 0.012 < 0.012 Impressions: Chest X-Ray 03/31/17 06:00 IMPRESSION: 1. Interval removal of endotracheal tube and NG tube. 2. Decreased aeration of the lung bases bilaterally likely related to atelectasis and possible small right pleural effusion. Assessment & Plan - Diagnosis (1) Acute and chronic respiratory failure ([id number]) Qualifiers: Respiratory failure complication: hypoxia and hypercapnia Qualified Code(s) : J96.21 - Acute and chronic respiratory failure with hypoxia; J96.22 - Acute and chronic respiratory failure with hypercapnia; J96.22 - Acute and chronic respiratory failure with hypercapnia; J96.22 - Acute and chronic respiratory failure with hypercapnia Is this a current diagnosis for this admission?: Yes Plan: Known history of MRSA pneumonia. Hypoxic and hypercapneic requiring intubation. Admission CXR and subsequent CXR without evidence of PNA Was treated with broad spectrum abx however now simplified. - Sputum culture growing GPC in clusters which is likely colonization, blood cultures no growth at 3 days - Given lack of convincing evidence this is in fact PNA, continue levaquin to complete 7 day antibiotic course total. - Sputum cx: + MRSA, patient has a history of MRSA PNA, so likely is a colonizer. Will NOT treat unless develops new symptoms - Continue prednisone 40mg * 2 additional days - Wean down O2 as tolerated, goal is >88% - Patient states that she quit smoking 2-3 weeks ago, has no urge to smoke and does not require nicotene patch at this time (2) Obstructive chronic bronchitis with exacerbation Is this a current diagnosis for this admission?: Yes Plan: Known history of COPD - Continue scheduled nebulized treatments + steroids - Management per above - Will ensure she is on good COPD outpatient regimen at discharge (3) Acute encephalopathy Is this a current diagnosis for this admission?: Yes Plan: Improving, secondary to acute illness, hypoxia, hypercapnea (4) Bradycardia Is this a current diagnosis for this admission?: Yes Plan: Sinus bradycardia: Cardiology was consulted earlier in admission - D/c-ed scopolamine patch - Cards ordered TTE, discontinued today as was not medically necessary at this time - D/c telemetry - Time Time Spent with patient: Less than 15 minutes Smoking Cessation Education: 3 to 10 minutes Anticipated discharge: SNF - Mostly likely will need SNF, pending PT eval Within: within 48 hours - Plan Summary Plan Summary: Improving clinically, needs PT eval and pending dispo likely to SNF
[2017-04-01] MEDS: NORMAL SALINE 1000 ML 1,000 ML IV PRN (13:57)
[2017-04-01] MEDS: ACETAMINOPHEN SOLN 325 MG/10.15 ML UDCUP PO PRN ×2 (16:07→20:02)
--- NOTE | 2017-04-01 17:26 | EKG REPORT ---
SEVERITY:- NORMAL ECG - SINUS RHYTHM : Confirmed by: Lissy Willingham 01-Apr-2017 17:25:46
[2017-04-01] MEDS: MONTELUKAST SODIUM 10 MG TABLET PO SCH (18:50)
[2017-04-02] MEDS: GUAIFENESIN SYRP 200 MG/10 ML UDC PO SCH ×5 (02:10→17:14)
[2017-04-02] MEDS: ACETAMINOPHEN SOLN 325 MG/10.15 ML UDCUP PO PRN (06:10)
[2017-04-02] MEDS: HEPARIN SOD (PORCINE) 5,000 UNIT/ML 1 ML SYRINGE SUBCUT SCH ×2 (06:10→14:55)
[2017-04-02] MEDS: LANSOPRAZOLE 15 MG TAB.RAP.DR PO SCH ×2 (06:11→17:14)
[2017-04-02] MEDS: NORMAL SALINE 1000 ML 1,000 ML IV PRN (06:11)
[2017-04-02 06:16] LABS: ANION GAP 7 (5-19); BLOOD UREA NITROGEN 4 mg/dL (7-20); CALCIUM 9.8 mg/dL (8.4-10.2); CARBON DIOXIDE 33 mmol/L (22-30); CHLORIDE 102 mmol/L (98-107); GLUCOSE 89 mg/dL (75-110)
[2017-04-02] MEDS: IPRATROPIUM/ALBUTEROL 0.5-2.5 MG/3 ML AMPUL NEB SCH ×4 (08:49→20:06)
[2017-04-02] MEDS: LEVOFLOXACIN 500 MG/D5W RTU 500 MG/100 ML RTUPB IV SCH (09:51)
[2017-04-02] MEDS: PREDNISONE 20 MG TABLET PO SCH (09:51)
--- NOTE | 2017-04-02 16:11 | PDOC PROGRESS REPORT ---
Subjective Progress Note for:: 04/02/17 Subjective:: Continues to be short of breath but is improved. Reason For Visit: PNEUMONIA,COPD EXACERBATION,SEPSIS,AMS Physical Exam Vital Signs: Temp Pulse Resp BP Pulse Ox 98.1 F 61 16 160/76 H 96 04/02/17 08:41 04/02/17 08:49 04/02/17 08:49 04/02/17 08:41 04/02/17 08:49 Intake & Output 04/01/17 04/02/17 04/03/17 06:59 06:59 06:59 Intake Total 3148 2902 Output Total 6200 8000 Balance -3050 -8222 Weight 55.1 kg 53.4 kg General appearance: PRESENT: no acute distress Eye exam: PRESENT: conjunctiva pink. ABSENT: scleral icterus Mouth exam: PRESENT: moist, tongue midline Neck exam: ABSENT: JVD Respiratory exam: PRESENT: wheezes. ABSENT: rales, rhonchi Cardiovascular exam: PRESENT: RRR. ABSENT: diastolic murmur, rubs, systolic murmur GI/Abdominal exam: PRESENT: normal bowel sounds, soft. ABSENT: distended, guarding, mass, organolmegaly, rebound, tenderness Extremities exam: ABSENT: calf tenderness, clubbing, pedal edema Neurological exam: PRESENT: alert, awake, oriented to person, oriented to place , oriented to time, oriented to situation, CN II-XII grossly intact. ABSENT: motor sensory deficit Psychiatric exam: PRESENT: appropriate affect Skin exam: PRESENT: dry, intact, warm. ABSENT: cyanosis, rash Results Laboratory Results: 03/31/17 04:19 04/02/17 05:10 04/02/17 05:10 Sodium 142.0 Potassium 4.0 Chloride 102 Carbon Dioxide 33 H Anion Gap 7 BUN 4 L Creatinine 0.32 L Est GFR ( Amer) > 60 Est GFR (Non-Af Amer) > 60 Glucose 89 Calcium 9.8 03/27/17 03/28/17 22:45 05:07 Troponin I < 0.012 < 0.012 Impressions: Chest X-Ray 03/31/17 06:00 IMPRESSION: 1. Interval removal of endotracheal tube and NG tube. 2. Decreased aeration of the lung bases bilaterally likely related to atelectasis and possible small right pleural effusion. Assessment & Plan - Diagnosis (1) Acute and chronic respiratory failure ([id number]) Qualifiers: Respiratory failure complication: hypoxia and hypercapnia Qualified Code(s) : J96.21 - Acute and chronic respiratory failure with hypoxia; J96.22 - Acute and chronic respiratory failure with hypercapnia; J96.22 - Acute and chronic respiratory failure with hypercapnia; J96.22 - Acute and chronic respiratory failure with hypercapnia Is this a current diagnosis for this admission?: Yes Plan: Secondary to chronic bronchitis and COPD. The patient is improving with IV steroids and nebulizers. (2) Obstructive chronic bronchitis with exacerbation Is this a current diagnosis for this admission?: Yes Plan: Continue with the steroids and nebulizers. (3) Acute encephalopathy Is this a current diagnosis for this admission?: Yes Plan: Most likely related to the acute illness. This is improving. (4) Bradycardia Is this a current diagnosis for this admission?: Yes Plan: Resolved after stopping scopolamine patches. (5) Anemia Qualifiers: Anemia type: iron deficiency Iron deficiency anemia type: unspecified iron deficiency Qualified Code(s): D50.9 - Iron deficiency anemia, unspecified Is this a current diagnosis for this admission?: Yes Plan: Hemoglobin has remained stable. - Time Time Spent with patient: 25-34 minutes - Inpatient Certification Medical Necessity: Need Close Monitoring Due to Risk of Patient Decompensation
[2017-04-02] MEDS: MONTELUKAST SODIUM 10 MG TABLET PO SCH (17:14)
[2017-04-03] MEDS: HEPARIN SOD (PORCINE) 5,000 UNIT/ML 1 ML SYRINGE SUBCUT SCH ×4 (00:08→22:41)
[2017-04-03] MEDS: GUAIFENESIN SYRP 200 MG/10 ML UDC PO SCH ×7 (00:08→23:16)
[2017-04-03] MEDS: NORMAL SALINE 1000 ML 1,000 ML IV PRN (00:12)
[2017-04-03 06:01] LABS: ABSOLUTE EOSINOPHILS # (AUTO) 0.1 10^3/uL (0.0-0.6); ABSOLUTE LYMPHOCYTES (AUTO) 1.3 10^3/uL (0.5-4.7); ABSOLUTE MONOCYTES (AUTO) 0.5 10^3/uL (0.1-1.4); ABSOLUTE NEUT (AUTO) 4.2 10^3/uL (1.7-8.2); BASOPHILS % (AUTO) 0.5 % (0-2); HEMATOCRIT 31.7 % (36.0-47.0); HEMOGLOBIN 10.2 g/dL (12.0-15.5); MEAN CORPUSCULAR HEMOGLOBIN 26.4 pg (27.0-33.4); MEAN CORPUSCULAR HGB CONC 32.1 g/dL (32.0-36.0); MEAN CORPUSCULAR VOLUME 83 fl (80-97); MONOCYTES % (AUTO) 7.6 % (3-13); PLATELET COUNT 181 10^3/uL (150-450); RED BLOOD COUNT 3.84 10^6/uL (3.72-5.28); RED CELL DISTRIBUTION WIDTH 21.7 % (11.5-14.0); SEGMENTED NEUTROPHILS % (AUTO) 69.9 % (42-78); TOTAL CELLS COUNTED % (AUTO) 100 %
[2017-04-03 06:24] LABS: ANION GAP 9 (5-19); BLOOD UREA NITROGEN 4 mg/dL (7-20); CALCIUM 9.7 mg/dL (8.4-10.2); CARBON DIOXIDE 32 mmol/L (22-30); CHLORIDE 101 mmol/L (98-107); GLUCOSE 83 mg/dL (75-110); POTASSIUM 3.4 mmol/L (3.6-5.0); SODIUM 141.5 mmol/L (137-145)
[2017-04-03] MEDS: LANSOPRAZOLE 15 MG TAB.RAP.DR PO SCH ×2 (08:10→18:28)
[2017-04-03] MEDS: IPRATROPIUM/ALBUTEROL 0.5-2.5 MG/3 ML AMPUL NEB SCH ×4 (08:26→20:40)
[2017-04-03] MEDS ORDERED: LORAZEPAM 1 MG TABLET PO PRN (09:12)
[2017-04-03] MEDS: LEVOFLOXACIN 500 MG TABLET PO SCH (09:23)
--- NOTE | 2017-04-03 11:12 | PDOC PROGRESS REPORT ---
Subjective Progress Note for:: 04/03/17 Subjective:: Patient is slightly confused this morning. Reason For Visit: PNEUMONIA,COPD EXACERBATION,SEPSIS,AMS Physical Exam Vital Signs: Temp Pulse Resp BP Pulse Ox 97.8 F 57 L 19 159/76 H 100 04/03/17 08:30 04/03/17 08:30 04/03/17 08:30 04/03/17 08:30 04/03/17 08:30 Intake & Output 04/02/17 04/03/17 04/04/17 06:59 06:59 06:59 Intake Total 2902 3784 Output Total 8000 6100 Balance -8207 -1612 Weight 53.4 kg General appearance: PRESENT: no acute distress Eye exam: PRESENT: conjunctiva pink. ABSENT: scleral icterus Mouth exam: PRESENT: moist, tongue midline Neck exam: ABSENT: JVD Respiratory exam: PRESENT: wheezes - Few expiratory wheezes. ABSENT: rales, rhonchi Cardiovascular exam: PRESENT: RRR. ABSENT: diastolic murmur, rubs, systolic murmur GI/Abdominal exam: PRESENT: normal bowel sounds, soft. ABSENT: distended, guarding, mass, organolmegaly, rebound, tenderness Extremities exam: ABSENT: calf tenderness, clubbing, pedal edema Neurological exam: PRESENT: alert, awake, oriented to person, oriented to place , CN II-XII grossly intact. ABSENT: oriented to time, oriented to situation, motor sensory deficit Psychiatric exam: PRESENT: appropriate affect Skin exam: PRESENT: dry, intact, warm. ABSENT: cyanosis, rash Results Laboratory Results: 04/03/17 05:08 04/03/17 05:08 04/03/17 04/03/17 05:08 05:08 WBC 6.0 RBC 3.84 Hgb 10.2 L Hct 31.7 L MCV 83 MCH 26.4 L MCHC 32.1 RDW 21.7 H Plt Count 181 Seg Neutrophils % 69.9 Lymphocytes % 21.0 Monocytes % 7.6 Eosinophils % 1.0 Basophils % 0.5 Absolute Neutrophils 4.2 Absolute Lymphocytes 1.3 Absolute Monocytes 0.5 Absolute Eosinophils 0.1 Absolute Basophils 0.0 Sodium 141.5 Potassium 3.4 L Chloride 101 Carbon Dioxide 32 H Anion Gap 9 BUN 4 L Creatinine 0.37 L Est GFR ( Amer) > 60 Est GFR (Non-Af Amer) > 60 Glucose 83 Calcium 9.7 03/27/17 03/28/17 22:45 05:07 Troponin I < 0.012 < 0.012 Impressions: Chest X-Ray 03/31/17 06:00 IMPRESSION: 1. Interval removal of endotracheal tube and NG tube. 2. Decreased aeration of the lung bases bilaterally likely related to atelectasis and possible small right pleural effusion. Assessment & Plan - Diagnosis (1) Acute and chronic respiratory failure ([id number]) Qualifiers: Respiratory failure complication: hypoxia and hypercapnia Qualified Code(s) : J96.21 - Acute and chronic respiratory failure with hypoxia; J96.22 - Acute and chronic respiratory failure with hypercapnia; J96.22 - Acute and chronic respiratory failure with hypercapnia; J96.22 - Acute and chronic respiratory failure with hypercapnia Is this a current diagnosis for this admission?: Yes Plan: Secondary to chronic bronchitis and COPD. The patient is improving with IV steroids and nebulizers. (2) Obstructive chronic bronchitis with exacerbation Is this a current diagnosis for this admission?: Yes Plan: Continue with the steroids and nebulizers. (3) Acute encephalopathy Is this a current diagnosis for this admission?: Yes Plan: Most likely related to the acute illness. Slightly more confused today. Will give Ativan as needed. (4) Bradycardia Is this a current diagnosis for this admission?: Yes Plan: Resolved after stopping scopolamine patches. (5) Anemia Qualifiers: Anemia type: iron deficiency Iron deficiency anemia type: unspecified iron deficiency Qualified Code(s): D50.9 - Iron deficiency anemia, unspecified Is this a current diagnosis for this admission?: Yes Plan: Hemoglobin has remained stable. - Time Time Spent with patient: 25-34 minutes - Inpatient Certification Medical Necessity: Need Close Monitoring Due to Risk of Patient Decompensation
--- NOTE | 2017-04-03 14:02 | PDOC PROGRESS REPORT ---
Subjective Progress Note for:: 04/03/17 Subjective:: Extremely confused Reason For Visit: PNEUMONIA,COPD EXACERBATION,SEPSIS,AMS Physical Exam Vital Signs: Temp Pulse Resp BP Pulse Ox 97.8 F 57 L 19 159/76 H 100 04/03/17 08:30 04/03/17 08:30 04/03/17 08:30 04/03/17 08:30 04/03/17 08:30 Intake & Output 04/02/17 04/03/17 04/04/17 06:59 06:59 06:59 Intake Total 2902 3784 Output Total 8000 6100 Balance -2228 -4528 Weight 53.4 kg General appearance: PRESENT: no acute distress, cooperative, disheveled, thin. ABSENT: mild distress, morbidly obese, obese, severe distress Head exam: PRESENT: atraumatic, normocephalic Eye exam: PRESENT: conjunctiva pale, EOMI. ABSENT: conjunctival injection, conjunctiva pink, nystagmus, periorbital swelling, scleral icterus Mouth exam: PRESENT: dry mucosa, neck supple, tongue midline. ABSENT: laceration, moist Teeth exam: PRESENT: poor dentation Neck exam: ABSENT: carotid bruit, JVD, lymphadenopathy, thyromegaly, tracheal deviation, tracheostomy Respiratory exam: PRESENT: decreased breath sounds, prolonged expiratory phas, rhonchi, symmetrical, unlabored, wheezes. ABSENT: accessory muscle use, chest wall tenderness, clear to auscultation rohan, crackles, retraction, stridor, tachypnea Cardiovascular exam: PRESENT: RRR, +S1, +S2 Pulses: PRESENT: normal radial pulses GI/Abdominal exam: PRESENT: diminished bowel sounds, soft Extremities exam: ABSENT: calf tenderness, clubbing, joint swelling Musculoskeletal exam: PRESENT: full ROM. ABSENT: deformity, dislocation Neurological exam: PRESENT: awake. ABSENT: alert, oriented to person, oriented to place, oriented to time, oriented to situation Skin exam: PRESENT: dry, warm Results Laboratory Results: 04/03/17 05:08 04/03/17 05:08 04/03/17 04/03/17 05:08 05:08 WBC 6.0 RBC 3.84 Hgb 10.2 L Hct 31.7 L MCV 83 MCH 26.4 L MCHC 32.1 RDW 21.7 H Plt Count 181 Seg Neutrophils % 69.9 Lymphocytes % 21.0 Monocytes % 7.6 Eosinophils % 1.0 Basophils % 0.5 Absolute Neutrophils 4.2 Absolute Lymphocytes 1.3 Absolute Monocytes 0.5 Absolute Eosinophils 0.1 Absolute Basophils 0.0 Sodium 141.5 Potassium 3.4 L Chloride 101 Carbon Dioxide 32 H Anion Gap 9 BUN 4 L Creatinine 0.37 L Est GFR ( Amer) > 60 Est GFR (Non-Af Amer) > 60 Glucose 83 Calcium 9.7 03/27/17 03/28/17 22:45 05:07 Troponin I < 0.012 < 0.012 Impressions: Chest X-Ray 03/31/17 06:00 IMPRESSION: 1. Interval removal of endotracheal tube and NG tube. 2. Decreased aeration of the lung bases bilaterally likely related to atelectasis and possible small right pleural effusion. Assessment & Plan - Diagnosis (1) Pneumonia Qualifiers: Pneumonia type: due to unspecified organism Laterality: unspecified laterality Lung location: lower lobe of lung Qualified Code(s): J18.1 - Lobar pneumonia, unspecified organism Is this a current diagnosis for this admission?: Yes Plan: Labs- All tests 24 hr 04/03/17 05:08 WBC 6.0 Seg Neutrophils % 69.9 Lymphocytes % 21.0 Monocytes % 7.6 Eosinophils % 1.0 (2) Acute and chronic respiratory failure ([id number]) Qualifiers: Respiratory failure complication: hypoxia and hypercapnia Qualified Code(s) : J96.21 - Acute and chronic respiratory failure with hypoxia; J96.22 - Acute and chronic respiratory failure with hypercapnia; J96.22 - Acute and chronic respiratory failure with hypercapnia; J96.22 - Acute and chronic respiratory failure with hypercapnia Is this a current diagnosis for this admission?: Yes Plan: stable (3) Anemia Qualifiers: Anemia type: iron deficiency Iron deficiency anemia type: unspecified iron deficiency Qualified Code(s): D50.9 - Iron deficiency anemia, unspecified Is this a current diagnosis for this admission?: Yes Plan: rodriguez in progress
[2017-04-03] MEDS ORDERED: HALOPERIDOL LACTATE INJ 5 MG/1 ML VIAL IV PRN (16:06)
[2017-04-03] MEDS: MONTELUKAST SODIUM 10 MG TABLET PO SCH (18:28)
[2017-04-04] MEDS: GUAIFENESIN SYRP 200 MG/10 ML UDC PO SCH ×6 (03:21→23:08)
[2017-04-04] MEDS: HEPARIN SOD (PORCINE) 5,000 UNIT/ML 1 ML SYRINGE SUBCUT SCH ×3 (05:09→21:33)
[2017-04-04] MEDS: LANSOPRAZOLE 15 MG TAB.RAP.DR PO SCH ×2 (05:09→16:14)
[2017-04-04 05:26] LABS: ABSOLUTE EOSINOPHILS # (AUTO) 0.3 10^3/uL (0.0-0.6); ABSOLUTE LYMPHOCYTES (AUTO) 0.9 10^3/uL (0.5-4.7); ABSOLUTE MONOCYTES (AUTO) 0.4 10^3/uL (0.1-1.4); ABSOLUTE NEUT (AUTO) 3.4 10^3/uL (1.7-8.2); BASOPHILS % (AUTO) 0.6 % (0-2); EOSINOPHILS % (AUTO) 5.3 % (0-6); HEMATOCRIT 32.5 % (36.0-47.0); HEMOGLOBIN 10.4 g/dL (12.0-15.5); LYMPHOCYTES % (AUTO) 17.4 % (13-45); MEAN CORPUSCULAR HEMOGLOBIN 26.6 pg (27.0-33.4); MEAN CORPUSCULAR HGB CONC 32.1 g/dL (32.0-36.0); MEAN CORPUSCULAR VOLUME 83 fl (80-97); MONOCYTES % (AUTO) 7.9 % (3-13); PLATELET COUNT 186 10^3/uL (150-450); RED BLOOD COUNT 3.92 10^6/uL (3.72-5.28); RED CELL DISTRIBUTION WIDTH 21.4 % (11.5-14.0); SEGMENTED NEUTROPHILS % (AUTO) 68.8 % (42-78); TOTAL CELLS COUNTED % (AUTO) 100 %; WHITE BLOOD COUNT 4.9 10^3/uL (4.0-10.5)
[2017-04-04 05:51] LABS: ANION GAP 9 (5-19); BLOOD UREA NITROGEN 7 mg/dL (7-20); CALCIUM 9.7 mg/dL (8.4-10.2); CARBON DIOXIDE 33 mmol/L (22-30); CHLORIDE 100 mmol/L (98-107); GLUCOSE 70 mg/dL (75-110); POTASSIUM 3.2 mmol/L (3.6-5.0); SODIUM 141.5 mmol/L (137-145)
[2017-04-04] MEDS: POTASSI CL 20 MEQ/50 ML RIDER 20 MEQ/50 ML RTUPB IV SCH ×2 (08:22→09:39)
[2017-04-04] MEDS: IPRATROPIUM/ALBUTEROL 0.5-2.5 MG/3 ML AMPUL NEB SCH ×4 (09:11→19:53)
[2017-04-04] MEDS: LEVOFLOXACIN 500 MG TABLET PO SCH (09:39)
--- NOTE | 2017-04-04 13:47 | PDOC PROGRESS REPORT ---
Subjective Progress Note for:: 04/04/17 Subjective:: patient is much more alert today. Reason For Visit: PNEUMONIA,COPD EXACERBATION,SEPSIS,AMS Physical Exam Vital Signs: Temp Pulse Resp BP Pulse Ox 98.6 F 63 16 118/59 L 98 04/04/17 09:25 04/04/17 11:46 04/04/17 11:46 04/04/17 09:25 04/04/17 11:46 Intake & Output 04/03/17 04/04/17 04/05/17 06:59 06:59 06:59 Intake Total 3784 901 Output Total 6100 6265 Balance -2316 -1314 Weight 47.2 kg General appearance: PRESENT: no acute distress Eye exam: PRESENT: conjunctiva pink. ABSENT: scleral icterus Mouth exam: PRESENT: moist, tongue midline Neck exam: ABSENT: JVD Respiratory exam: PRESENT: wheezes - Few scattered expiratory wheezes. ABSENT: rales, rhonchi Cardiovascular exam: PRESENT: RRR. ABSENT: diastolic murmur, rubs, systolic murmur GI/Abdominal exam: PRESENT: normal bowel sounds, soft. ABSENT: distended, guarding, mass, organolmegaly, rebound, tenderness Extremities exam: ABSENT: calf tenderness, clubbing, pedal edema Neurological exam: PRESENT: alert, awake, oriented to person, oriented to place , oriented to time, oriented to situation, CN II-XII grossly intact. ABSENT: motor sensory deficit Psychiatric exam: PRESENT: appropriate affect Skin exam: PRESENT: dry, intact, warm. ABSENT: cyanosis, rash Results Laboratory Results: 04/04/17 04:42 04/04/17 04:42 04/04/17 04/04/17 04:42 04:42 WBC 4.9 RBC 3.92 Hgb 10.4 L Hct 32.5 L MCV 83 MCH 26.6 L MCHC 32.1 RDW 21.4 H Plt Count 186 Seg Neutrophils % 68.8 Lymphocytes % 17.4 Monocytes % 7.9 Eosinophils % 5.3 Basophils % 0.6 Absolute Neutrophils 3.4 Absolute Lymphocytes 0.9 Absolute Monocytes 0.4 Absolute Eosinophils 0.3 Absolute Basophils 0.0 Sodium 141.5 Potassium 3.2 L Chloride 100 Carbon Dioxide 33 H Anion Gap 9 BUN 7 Creatinine 0.36 L Est GFR ( Amer) > 60 Est GFR (Non-Af Amer) > 60 Glucose 70 L Calcium 9.7 03/27/17 03/28/17 22:45 05:07 Troponin I < 0.012 < 0.012 Impressions: Chest X-Ray 03/31/17 06:00 IMPRESSION: 1. Interval removal of endotracheal tube and NG tube. 2. Decreased aeration of the lung bases bilaterally likely related to atelectasis and possible small right pleural effusion. Assessment & Plan - Diagnosis (1) Acute and chronic respiratory failure ([id number]-[id number]) Qualifiers: Respiratory failure complication: hypoxia and hypercapnia Qualified Code(s) : J96.21 - Acute and chronic respiratory failure with hypoxia; J96.22 - Acute and chronic respiratory failure with hypercapnia; J96.22 - Acute and chronic respiratory failure with hypercapnia; J96.22 - Acute and chronic respiratory failure with hypercapnia Is this a current diagnosis for this admission?: Yes Plan: Secondary to chronic bronchitis and COPD. The patient is improving with steroids and nebulizers. (2) Obstructive chronic bronchitis with exacerbation Is this a current diagnosis for this admission?: Yes Plan: Continue with the steroids and nebulizers. (3) Acute encephalopathy Is this a current diagnosis for this admission?: Yes Plan: Most likely related to the acute illness. Improved today. We will continue with Ativan as needed. (4) Bradycardia Is this a current diagnosis for this admission?: Yes Plan: Resolved after stopping scopolamine patches. (5) Anemia Qualifiers: Anemia type: iron deficiency Iron deficiency anemia type: unspecified iron deficiency Qualified Code(s): D50.9 - Iron deficiency anemia, unspecified Is this a current diagnosis for this admission?: Yes Plan: Hemoglobin has remained stable. - Time Time Spent with patient: 25-34 minutes - Inpatient Certification Medical Necessity: Need Close Monitoring Due to Risk of Patient Decompensation
[2017-04-04] MEDS ORDERED: PREDNISONE 20 MG TABLET PO ONE (14:00)
[2017-04-04] MEDS: ACETAMINOPHEN SOLN 325 MG/10.15 ML UDCUP PO PRN (15:09)
[2017-04-04] MEDS: MONTELUKAST SODIUM 10 MG TABLET PO SCH (17:23)
[2017-04-04] MEDS: NORMAL SALINE 1000 ML 1,000 ML IV PRN (17:26)
--- NOTE | 2017-04-04 18:02 | PDOC PROGRESS REPORT ---
Subjective Progress Note for:: 04/04/17 Subjective:: better today Reason For Visit: PNEUMONIA,COPD EXACERBATION,SEPSIS,AMS Physical Exam Vital Signs: Temp Pulse Resp BP Pulse Ox 98.6 F 63 16 118/59 L 97 04/04/17 09:25 04/04/17 15:51 04/04/17 15:51 04/04/17 09:25 04/04/17 15:51 Intake & Output 04/03/17 04/04/17 04/05/17 06:59 06:59 06:59 Intake Total 3784 901 1870 Output Total 6100 2215 Balance -2316 1317 1870 Weight 47.2 kg General appearance: PRESENT: no acute distress, cooperative, disheveled, thin. ABSENT: mild distress, morbidly obese, obese, severe distress Head exam: PRESENT: atraumatic, normocephalic Eye exam: PRESENT: conjunctiva pale, EOMI. ABSENT: conjunctival injection, conjunctiva pink, nystagmus, periorbital swelling, scleral icterus Mouth exam: PRESENT: moist, neck supple, tongue midline. ABSENT: dry mucosa, laceration Neck exam: ABSENT: carotid bruit, JVD, lymphadenopathy, thyromegaly, tracheal deviation, tracheostomy Respiratory exam: PRESENT: decreased breath sounds, prolonged expiratory phas, rales, rhonchi, symmetrical, unlabored, wheezes. ABSENT: accessory muscle use, chest wall tenderness, clear to auscultation rohan, crackles, retraction, stridor , tachypnea Cardiovascular exam: PRESENT: RRR, +S1, +S2 Pulses: PRESENT: normal radial pulses GI/Abdominal exam: PRESENT: diminished bowel sounds, soft Extremities exam: ABSENT: clubbing, full ROM, joint swelling Musculoskeletal exam: ABSENT: ambulatory, deformity, dislocation, full ROM Neurological exam: PRESENT: alert, awake Skin exam: PRESENT: dry, warm Results Laboratory Results: 04/04/17 04:42 04/04/17 04:42 04/04/17 04/04/17 04:42 04:42 WBC 4.9 RBC 3.92 Hgb 10.4 L Hct 32.5 L MCV 83 MCH 26.6 L MCHC 32.1 RDW 21.4 H Plt Count 186 Seg Neutrophils % 68.8 Lymphocytes % 17.4 Monocytes % 7.9 Eosinophils % 5.3 Basophils % 0.6 Absolute Neutrophils 3.4 Absolute Lymphocytes 0.9 Absolute Monocytes 0.4 Absolute Eosinophils 0.3 Absolute Basophils 0.0 Sodium 141.5 Potassium 3.2 L Chloride 100 Carbon Dioxide 33 H Anion Gap 9 BUN 7 Creatinine 0.36 L Est GFR ( Amer) > 60 Est GFR (Non-Af Amer) > 60 Glucose 70 L Calcium 9.7 03/27/17 03/28/17 22:45 05:07 Troponin I < 0.012 < 0.012 Impressions: Chest X-Ray 03/31/17 06:00 IMPRESSION: 1. Interval removal of endotracheal tube and NG tube. 2. Decreased aeration of the lung bases bilaterally likely related to atelectasis and possible small right pleural effusion. Assessment & Plan - Diagnosis (1) Pneumonia Qualifiers: Pneumonia type: due to unspecified organism Laterality: unspecified laterality Lung location: lower lobe of lung Qualified Code(s): J18.1 - Lobar pneumonia, unspecified organism Is this a current diagnosis for this admission?: Yes Plan: Labs- All tests 24 hr 04/03/17 05:08 WBC 6.0 Seg Neutrophils % 69.9 Lymphocytes % 21.0 Monocytes % 7.6 Eosinophils % 1.0 (2) Acute and chronic respiratory failure ([id number]) Qualifiers: Respiratory failure complication: hypoxia and hypercapnia Qualified Code(s) : J96.21 - Acute and chronic respiratory failure with hypoxia; J96.22 - Acute and chronic respiratory failure with hypercapnia; J96.22 - Acute and chronic respiratory failure with hypercapnia; J96.22 - Acute and chronic respiratory failure with hypercapnia Is this a current diagnosis for this admission?: Yes Plan: stable (3) Anemia Qualifiers: Anemia type: iron deficiency Iron deficiency anemia type: unspecified iron deficiency Qualified Code(s): D50.9 - Iron deficiency anemia, unspecified Is this a current diagnosis for this admission?: Yes Plan: rodriguez in progress
[2017-04-05] MEDS: GUAIFENESIN SYRP 200 MG/10 ML UDC PO SCH ×4 (04:01→16:14)
[2017-04-05 05:28] LABS: ABSOLUTE LYMPHOCYTES (AUTO) 0.8 10^3/uL (0.5-4.7); ABSOLUTE MONOCYTES (AUTO) 0.6 10^3/uL (0.1-1.4); ABSOLUTE NEUT (AUTO) 3.8 10^3/uL (1.7-8.2); BASOPHILS % (AUTO) 0.4 % (0-2); EOSINOPHILS % (AUTO) 0.6 % (0-6); HEMATOCRIT 29.9 % (36.0-47.0); HEMOGLOBIN 9.8 g/dL (12.0-15.5); MEAN CORPUSCULAR HEMOGLOBIN 26.8 pg (27.0-33.4); MEAN CORPUSCULAR HGB CONC 32.7 g/dL (32.0-36.0); MEAN CORPUSCULAR VOLUME 82 fl (80-97); MONOCYTES % (AUTO) 11.8 % (3-13); PLATELET COUNT 192 10^3/uL (150-450); RED BLOOD COUNT 3.65 10^6/uL (3.72-5.28); RED CELL DISTRIBUTION WIDTH 20.7 % (11.5-14.0); SEGMENTED NEUTROPHILS % (AUTO) 71.2 % (42-78); TOTAL CELLS COUNTED % (AUTO) 100 %; WHITE BLOOD COUNT 5.3 10^3/uL (4.0-10.5)
[2017-04-05] MEDS: LANSOPRAZOLE 15 MG TAB.RAP.DR PO SCH ×2 (05:34→16:13)
[2017-04-05] MEDS: HEPARIN SOD (PORCINE) 5,000 UNIT/ML 1 ML SYRINGE SUBCUT SCH ×2 (05:34→14:23)
[2017-04-05 05:49] LABS: ANION GAP 6 (5-19); BLOOD UREA NITROGEN 5 mg/dL (7-20); CALCIUM 9.7 mg/dL (8.4-10.2); CARBON DIOXIDE 30 mmol/L (22-30); CHLORIDE 106 mmol/L (98-107); GLUCOSE 104 mg/dL (75-110); POTASSIUM 3.5 mmol/L (3.6-5.0); SODIUM 141.6 mmol/L (137-145)
[2017-04-05] MEDS: IPRATROPIUM/ALBUTEROL 0.5-2.5 MG/3 ML AMPUL NEB SCH ×3 (08:59→16:31)
[2017-04-05] MEDS: NORMAL SALINE 1000 ML 1,000 ML IV PRN (09:22)
[2017-04-05] MEDS: LEVOFLOXACIN 500 MG TABLET PO SCH (09:30)
[2017-04-05] MEDS ORDERED: PREDNISONE 20 MG TABLET PO SCH (10:00)
--- NOTE | 2017-04-05 14:36 | PDOC DISCHARGE SUMMARY ---
General - Admit/Disc Date/PCP Admission Date/Primary Care Provider: 03/27/17 21:52 NATASHA MONTOYA MD Discharge Date: 04/05/17 - Discharge Diagnosis (1) Acute and chronic respiratory failure ([id number]) Is this a current diagnosis for this admission?: Yes Summary: Secondary to pneumonia and COPD requiring intubation. (2) Obstructive chronic bronchitis with exacerbation Is this a current diagnosis for this admission?: Yes (3) Acute encephalopathy Is this a current diagnosis for this admission?: Yes (4) Bradycardia Is this a current diagnosis for this admission?: Yes (5) Anemia Is this a current diagnosis for this admission?: Yes - Additional Information Resuscitation Status: Full Code Discharge Diet: Cardiac Discharge Activity: Activity As Tolerated Prescriptions: Ipratropium/Albuterol Sulfate [Duoneb 3 ml Ampul] 3 ml NEB [id number] #120 vial.neb Prednisone [Deltasone 20 mg Tablet] 40 mg PO DAILY #11 tablet Home Medications: Albuterol Sulfate [Ventolin 0.083% Neb 2.5 mg/3 mL Ampul] 3 ml NEB RTTID Hydrocodone Bitartrate [Hysingla ER] 20 mg PO DAILY 03/28/17 Hydrocodone/Acetaminophen [[place]atham 7.5-325 mg Tablet] 1 tab PO Q8HP PRN 03/28/17 Montelukast Sodium [Singulair 10 mg Tablet] 10 mg PO QPM 03/28/17 Oxybutynin Chloride [Ditropan 5 mg Tablet] 5 mg PO BID 03/28/17 Ipratropium/Albuterol Sulfate [Duoneb 3 ml Ampul] 3 ml NEB [id number] #120 vial.neb 04/05/17 Prednisone [Deltasone 20 mg Tablet] 40 mg PO DAILY #11 tablet 04/05/17 History of Present Illness History of Present Illness: ADRIAN BOWLES is a 61 year old female with a history of COPD who presented to emergency room via EMS. Patient was hypercapnic and placed on BiPAP. She was noted to be acidotic. Patient's mental status at that time was poor and she was unable to give any history. The patient was felt to have pneumonia and COPD exacerbation as a cause for respiratory failure. She was intubated and admitted to the intensive care unit. Hospital Course Hospital Course: 61-year-old female who was admitted with respiratory failure secondary to pneumonia, sepsis and COPD exacerbation. Patient was started on broad-spectrum antibiotics as she did have a history of MRSA pneumonia in the past. The patient improved and was eventually extubated. She was then moved to the floor and continued to improve. She did grow several bacteria from her sputum including MRSA however is felt the most likely was not MRSA pneumonia and she was switched to Levaquin p.o. The patient continued to improve but did have intermittent episodes of confusion. The patient was not on oxygen previously however the day of discharge she was still having some hypoxia and she is sent home on 2 L per nasal cannula. Patient also be sent home on a prednisone taper. The patient was evaluated by cardiology as well as pulmonary medicine while she was in the intensive care unit. She did have an episode of bradycardia possibly secondary to scopolamine and this has resolved. The patient will be discharged home with home oxygen. Physical Exam Vital Signs: Temp Pulse Resp BP Pulse Ox 98.4 F 81 18 137/62 H 98 04/05/17 11:52 04/05/17 11:52 04/05/17 11:52 04/05/17 11:52 04/05/17 11:52 Intake & Output 04/04/17 04/05/17 04/06/17 06:59 06:59 06:59 Intake Total 901 5064 695 Output Total 2215 2150 825 Balance -1314 2914 -130 Weight 47.2 kg 50.3 kg General appearance: PRESENT: no acute distress Eye exam: PRESENT: conjunctiva pink. ABSENT: scleral icterus Mouth exam: PRESENT: moist, tongue midline Neck exam: ABSENT: JVD Respiratory exam: PRESENT: clear to auscultation rohan. ABSENT: rales, rhonchi, wheezes Cardiovascular exam: PRESENT: RRR. ABSENT: diastolic murmur, rubs, systolic murmur GI/Abdominal exam: PRESENT: normal bowel sounds, soft. ABSENT: distended, guarding, mass, organolmegaly, rebound, tenderness Extremities exam: ABSENT: calf tenderness, clubbing, pedal edema Neurological exam: PRESENT: alert, awake, oriented to person, oriented to place , oriented to time, oriented to situation, CN II-XII grossly intact. ABSENT: motor sensory deficit Psychiatric exam: PRESENT: appropriate affect Skin exam: PRESENT: dry, intact, warm. ABSENT: cyanosis, rash Results Laboratory Results: 04/05/17 05:10 04/05/17 05:10 04/05/17 04/05/17 05:10 05:10 WBC 5.3 RBC 3.65 L Hgb 9.8 L Hct 29.9 L MCV 82 MCH 26.8 L MCHC 32.7 RDW 20.7 H Plt Count 192 Seg Neutrophils % 71.2 Lymphocytes % 16.0 Monocytes % 11.8 Eosinophils % 0.6 Basophils % 0.4 Absolute Neutrophils 3.8 Absolute Lymphocytes 0.8 Absolute Monocytes 0.6 Absolute Eosinophils 0.0 Absolute Basophils 0.0 Sodium 141.6 Potassium 3.5 L Chloride 106 Carbon Dioxide 30 Anion Gap 6 BUN 5 L Creatinine 0.31 L Est GFR ( Amer) > 60 Est GFR (Non-Af Amer) > 60 Glucose 104 Calcium 9.7 03/27/17 03/28/17 22:45 05:07 Troponin I < 0.012 < 0.012 Impressions: Chest X-Ray 03/31/17 06:00 IMPRESSION: 1. Interval removal of endotracheal tube and NG tube. 2. Decreased aeration of the lung bases bilaterally likely related to atelectasis and possible small right pleural effusion. Qualifiers PATEINT BEING DISCHARGED WITH ANY OF THE FOLLOWING DIAGNOSIS?: No Plan Discharge Plan: Patient is discharged to home. Follow-up with primary care in 1-2 weeks. Time Spent: Greater than 30 Minutes
[2017-04-05] MEDS: MONTELUKAST SODIUM 10 MG TABLET PO SCH (17:17)
[2017-04-05 17:57] VITALS: BP 123/57
--- NOTE | 2017-04-07 19:03 | PDOC PROGRESS REPORT ---
Subjective Progress Note for:: 04/05/17 Subjective:: better today responding appropriately Reason For Visit: PNEUMONIA,COPD EXACERBATION,SEPSIS,AMS Physical Exam Vital Signs: Temp Pulse Resp BP Pulse Ox 98.4 F 81 18 137/62 H 98 04/05/17 11:52 04/05/17 11:52 04/05/17 11:52 04/05/17 11:52 04/05/17 11:52 Intake & Output 04/04/17 04/05/17 04/06/17 06:59 06:59 06:59 Intake Total 901 5064 695 Output Total 2215 2150 825 Balance -1314 2914 -130 Weight 47.2 kg 50.3 kg General appearance: PRESENT: no acute distress, cooperative, disheveled, thin. ABSENT: mild distress, morbidly obese, obese, severe distress Head exam: PRESENT: atraumatic, normocephalic Eye exam: PRESENT: conjunctiva pale, EOMI. ABSENT: conjunctival injection, conjunctiva pink, nystagmus, periorbital swelling, scleral icterus Mouth exam: PRESENT: moist, neck supple, tongue midline. ABSENT: dry mucosa, laceration Neck exam: ABSENT: carotid bruit, JVD, lymphadenopathy, thyromegaly, tracheal deviation, tracheostomy Respiratory exam: PRESENT: decreased breath sounds, prolonged expiratory phas, rhonchi, symmetrical, unlabored. ABSENT: accessory muscle use, chest wall tenderness, clear to auscultation rohan, crackles, rales, retraction, stridor, tachypnea Cardiovascular exam: PRESENT: RRR, +S1, +S2 Pulses: PRESENT: normal radial pulses GI/Abdominal exam: PRESENT: diminished bowel sounds, soft Extremities exam: ABSENT: calf tenderness, clubbing, joint swelling Musculoskeletal exam: ABSENT: deformity, dislocation Neurological exam: PRESENT: awake Skin exam: PRESENT: dry, warm Results Laboratory Results: 04/05/17 05:10 04/05/17 05:10 04/05/17 04/05/17 05:10 05:10 WBC 5.3 RBC 3.65 L Hgb 9.8 L Hct 29.9 L MCV 82 MCH 26.8 L MCHC 32.7 RDW 20.7 H Plt Count 192 Seg Neutrophils % 71.2 Lymphocytes % 16.0 Monocytes % 11.8 Eosinophils % 0.6 Basophils % 0.4 Absolute Neutrophils 3.8 Absolute Lymphocytes 0.8 Absolute Monocytes 0.6 Absolute Eosinophils 0.0 Absolute Basophils 0.0 Sodium 141.6 Potassium 3.5 L Chloride 106 Carbon Dioxide 30 Anion Gap 6 BUN 5 L Creatinine 0.31 L Est GFR ( Amer) > 60 Est GFR (Non-Af Amer) > 60 Glucose 104 Calcium 9.7 03/27/17 03/28/17 22:45 05:07 Troponin I < 0.012 < 0.012 Impressions: Chest X-Ray 03/31/17 06:00 IMPRESSION: 1. Interval removal of endotracheal tube and NG tube. 2. Decreased aeration of the lung bases bilaterally likely related to atelectasis and possible small right pleural effusion. Assessment & Plan - Diagnosis (1) Pneumonia Qualifiers: Pneumonia type: due to unspecified organism Laterality: unspecified laterality Lung location: lower lobe of lung Qualified Code(s): J18.1 - Lobar pneumonia, unspecified organism Is this a current diagnosis for this admission?: Yes Plan: Labs- All tests 24 hr 04/03/17 05:08 WBC 6.0 Seg Neutrophils % 69.9 Lymphocytes % 21.0 Monocytes % 7.6 Eosinophils % 1.0 (2) Acute and chronic respiratory failure ([id number]) Qualifiers: Respiratory failure complication: hypoxia and hypercapnia Qualified Code(s) : J96.21 - Acute and chronic respiratory failure with hypoxia; J96.22 - Acute and chronic respiratory failure with hypercapnia; J96.22 - Acute and chronic respiratory failure with hypercapnia; J96.22 - Acute and chronic respiratory failure with hypercapnia Is this a current diagnosis for this admission?: Yes Plan: stable (3) Anemia Qualifiers: Anemia type: iron deficiency Iron deficiency anemia type: unspecified iron deficiency Qualified Code(s): D50.9 - Iron deficiency anemia, unspecified Is this a current diagnosis for this admission?: Yes
== END 2017-04-05 18:29 | disposition home health service (06) | DRG 871 ==
LOC: ER 18:40 → EH 21:52 → ICU 03-30 04:18 → 3W 03-31 10:11
PROVIDERS: ADMIT Family Medicine; ATTEND Family Medicine
PROC: 0BH17EZ Insertion of Endotracheal Airway into Trachea, Via Natural or Artificial Opening (ICD-10-PCS; principal; 2017-03-28)
PROC: 5A1945Z Respiratory Ventilation, 24-96 Consecutive Hours (ICD-10-PCS; 2017-03-28)
DX: A41.9 Sepsis, unspecified organism (principal); J18.1 Lobar pneumonia, unspecified organism; J96.21 Acute and chronic respiratory failure with hypoxia; J96.22 Acute and chronic respiratory failure with hypercapnia; G93.40 Encephalopathy, unspecified; J44.1 Chronic obstructive pulmonary disease with (acute) exacerbation; R64 Cachexia; Z68.1 Body mass index [BMI] 19.9 or less, adult; I50.9 Heart failure, unspecified; I25.10 Atherosclerotic heart disease of native coronary artery without angina pectoris; E78.00 Pure hypercholesterolemia, unspecified; K21.9 Gastro-esophageal reflux disease without esophagitis; M19.90 Unspecified osteoarthritis, unspecified site; D50.9 Iron deficiency anemia, unspecified; R00.1 Bradycardia, unspecified; G43.909 Migraine, unspecified, not intractable, without status migrainosus; F41.8 Other specified anxiety disorders; F17.210 Nicotine dependence, cigarettes, uncomplicated; Z22.322 Carrier or suspected carrier of Methicillin resistant Staphylococcus aureus; Z79.891 Long term (current) use of opiate analgesic; Z79.51 Long term (current) use of inhaled steroids; Z79.899 Other long term (current) drug therapy
CPT/HCPCS: 36415; 36600; 51702; 71045; 80048; 80053; 80202; 81001; 82607; 82728; 82746; 82803; 82962; 83540; 83550; 83605; 83735; 84132; 84439; 84443; 84466; 84484; 85025; 85045; 85610; 86850; 86900; 86901; 87040; 87070; 87077; 87086; 87186; 87205; 87804; 93005; 93010; 94002; 94003; 94640; 94660; 96365; 96366; 96375; 99285; G8978-GP; G8979-GP; J0330; J0456; J0696; J1335; J1630; J1644; J1815; J1956; J2250; J2704; J2930; J3370; J3475; J3480; J3490; J7030; J7040; J7060; J7512; J7620